=== PATIENT | male | born 1930 | race African-American/Black ===

== ENCOUNTER 2019-08-17 14:43 | Inpatient (IN) | payer OTHER ==
[~2019-08-17] VITALS: Ht 160 cm; Wt 68.7 kg
--- NOTE | ~2019-08-17 | HC ---
[facility] [place] [address] CONSULTATION Name: ROOPA WAY Room #: 236-P [facility] IN M.R.#: [id number] Admission: 08/17/19 Attend Phys: Evans Bruce Discharge: Date of : [birth year] Report #: [id number] THIS REPORT FOR: cc: ISAURO - No family physician/PCP ISAURO - Radha family physician/PCP Mason Jason MD ~ CC: [facility] physician/PCP Evans Cho DATE OF SERVICE: 09/21/2019 HISTORY OF PRESENT ILLNESS: The patient is an 88-year-old -Polish male originally admitted to [facility] on 08/17/2019 with weakness, cough or chills. He was noted to have acute respiratory failure, Community-acquired pneumonia with COVID positive. He had a code blue, necessitating intubation and ventilator placement on 08/22/2019. He remained intubated through 09/16/2019. He was treated for bilateral pneumonia, severe sepsis, urinary tract infection. He was treated with hydroxychloroquine and azithromycin. He also developed multiple of his extremities and wound care has been involved. He was transferred out of ICU to [facility], but ended up being readmitted with recurrent respiratory failure/concern regarding hypotension. He is currently back in the intensive care unit. We are seeing him in rehabilitation medicine consultation. PAST MEDICAL HISTORY: Includes diabetes mellitus type 2. HABITS: No history of tobacco or alcohol abuse. ALLERGIES: No known drug allergies. SOCIAL HISTORY: Was living in a house alone. Apparently utilized a cane. I am uncertain if there are steps, noted to be , with no children or family. He has a jainism community. There is a stepgrandson and a nephew and a friend that are involved. REVIEW OF SYSTEMS: No current complaints of chest pain, shortness of breath or abdominal discomfort. PHYSICAL EXAMINATION: GENERAL: An 88-year-old pleasant -Polish male in no obvious distress. NEUROLOGIC: He is actually quite jovial, will follow basic 1 step commands for me, was not fully oriented x 3, but could follow commands. Facies were symmetric. He had significant bilateral upper extremity weakness, grade it at a 3+/5, in his lower extremities, he has some discomfort with attempted movement, bilateral heel protectors are in place. Once I assisted in bring up his legs, [facility] [address] [place] [address] CONSULTATION Name: ROOPA WAY Room #: 236-P [facility] IN M.R.#: [id number] Admission: 08/17/19 Attend Phys: Evans Bruce Discharge: Date of : [birth year] Report #: [id number] he was able to do some quadriceps, knee extensor movement at least a grade 3+/5. I was unable to adequately assess sensation. He has been max assist for basic bed mobility dependent for rolling. He is currently off the ventilator. He has a suprapubic tube in place, which is noted to be premorbid. ASSESSMENT: An 88-year-old -Polish male with the following problem list: 1. 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 2. Recurrent hypoxic respiratory failure. 3. Prolonged mechanical ventilation with ICU stay. 4. COVID-19 positive. We are in the midst of a COVID-19 pandemic. 5. Bilateral pneumonia. 6. Severe sepsis. 7. Urinary tract infection. 8. Multiple extremity . PLAN: The patient is at a low functional level. I am uncertain if he has the tolerance for an acute 5 North inpatient rehabilitation stay. He also has very limited social support. Note that LTAC has been considered. At this point, we will need to follow along with you and see how his tolerance is for basic therapies. Thank you for asking us to assist in this patient's care. By: [id number] Mason Jason MD /PMT
[2019-08-17 14:46] VITALS: BP 134/72
[2019-08-17 15:23] LABS: HEMATOCRIT 40.4 % (42.0-52.0); HEMOGLOBIN 13.4 gm/dL (14.0-18.0); MCH 29.7 pg (26.0-34.0); MCHC 33.3 g/dL (28.0-37.0); PLATELET COUNT 135 thou/uL (150-400); RBC 4.53 mil/uL (4.50-6.00)
[2019-08-17 15:30] LABS: ANION GAP 5 mmol/L (7-16); BUN 20 mg/dL (7-18); CHLORIDE 97 mmol/L (98-107); CO2 33 mmol/L (21-32); CREATININE 1.1 mg/dL (0.7-1.3); GLUCOSE 262 mg/dL (74-106); POTASSIUM 4.1 mmol/L (3.5-5.1); SODIUM 135 mmol/L (136-145)
[2019-08-17 15:34] LABS: BE(vivo) 3.6 mmol/L (-2 to +3); HCO3 26.8 mmol/L (22.0-26.0); PCO2 35.6 mmHg (35.0-45.0); PO2 54.7 mmHg (80.0-100.0); pH 7.494 (7.360-7.450); sO2 91.1 % (92.0-98.0)
[2019-08-17 15:39] LABS: ALBUMIN 2.9 g/dL (3.4-5.0); SGOT 37 U/L (15-37); SGPT 21 U/L (30-65); TOTAL BILIRUBIN 0.9 mg/dL (<0.1-1.0); TOTAL PROTEIN 7.2 g/dL (6.4-8.2); TROPONIN-I <0.06 ng/mL (<0.06)
[2019-08-17 16:00] LABS: ABSOLUTE NEUTROPHILS 3.9 thou/uL (1.4-8.2)
[2019-08-17 17:02] VITALS: BP 130/66
[2019-08-17 17:11] LABS: URINE BILIRUBIN NEGATIVE (Negative); URINE BLOOD 3+ (Negative); URINE CLARITY SL CLOUDY; URINE COLOR YELLOW; URINE GLUCOSE-RANDOM* TRACE (Negative); URINE KETONES TRACE (Negative); URINE PROTEIN (DIPSTICK) 2+ (Negative); URINE SPECIFIC GRAVITY 1.025 (1.005-1.035)
[2019-08-17 17:13] LABS: URINE LEUKOCYTES-REFLEX 1+ (Negative); URINE NITRITE-REFLEX POSITIVE (Negative)
[2019-08-17 17:17] LABS: BACTERIA-REFLEX >30 Many /HPF (None Seen)
[2019-08-17 17:18] LABS: URINE WBC-REFLEX >25 Many /HPF (0-5)
[2019-08-17 17:19] LABS: AMORPHOUS URATES Moderate /LPF (None Seen); CASTS None Seen /LPF (None Seen); SQUAMOUS None Seen /LPF (0-3); URIC ACID CRYSTALS 0-3 Few /LPF (None Seen); URINE RBC 0-2 Rare /HPF (0-2)
[2019-08-17 17:36] VITALS: BP 130/66
[2019-08-17 17:46] LABS: TSH 0.6 uIU/mL (0.358-3.740)
[2019-08-17 18:00] VITALS: BP 154/89
[2019-08-17] MEDS ORDERED: FINASTERIDE5 MG PO (18:23)
[2019-08-17] MEDS ORDERED: TRADJENTA5 MG (18:23)
[2019-08-17] MEDS ORDERED: LISINOPRIL20 MG PO (18:23)
[2019-08-17] MEDS ORDERED: TAMSULOSIN HCL0.4 MG PO (18:23)
[2019-08-17] MEDS ORDERED: LOVASTATIN 20 M20 MG PO (18:24)
[2019-08-17 20:15] VITALS: BP 141/79
--- NOTE | 2019-08-17 22:04 | NUR ---
ASSUMED CARE FOR THIS PATIENT AT 1900, UPON ASSESSMENT PATIENT WAS C/O CHILLS AND HAD A RESPIRATORY RATE >20. VITAL SIGNS WERE ALL NORMAL. PT'S R SIDE LUNGS HAD RALES. PATIENT WAS ALERT AND ORIENTED X4 BUT WERE SLOW TO RESPOND AND AT TIMES MUFFLED BUT PATIENT WAS ABLE TO CORRECTLY RESPOND TO ALL QUESTIONS REGARDING MENTATION. NO C/O PAIN, BEDSIDE AND ITEMS WITHIN REACH, CALL LIGHT PROVIDED, REEDUCATED ON USE OF BED REMOTE AND HOW TO USE THE CALL LIGHT. PT LEFT ON 3L OF OXYGEN. WILL CONTINUE TO MONITOR.
[2019-08-18] VITALS (7 sets, daily range): BP systolic 115–145; BP diastolic 71–80
--- NOTE | 2019-08-18 13:44 | NUR ---
INITIAL ASSESSMENT: SW reviewed chart and spoke with nursing and attending physician. Pt was admitted from home due to respiratory failure/weakness. Pt did have contact with someone from [place] who has tested positive for COVID-19. Pt is in Enhanced Isolation at this time, awaiting results. SW attempted to call into pt's room. No answer in pt's room. No contact info available on pt's family. SW requested nursing place phone within reach for pt to answer and to obtain info from family if they call, or to obtain contact info for family from pt. SW will follow up and assist as needed with discharge planning.
--- NOTE | 2019-08-18 15:39 | NUR ---
ASSUMED CARE AT 0700. RIGHT AFTER SHIFT CHANGE, RT PUT PT ON ROOM AIR. AT TIME OF AM VITALS, PT'S 02 SAT @87-88%. PT PLACED ON 1L AND ONLY PROGRESSED TO 90%. PT PLACED ON O2 @2L AND O2 SAT INCREASED TO 93%. PT CONTINUED TO NEED 02 FOR THE ENTIRE SHIFT. AROUND 1100, PT WAS TACHYPNEIC IN THE 30'S, BUT ALL OTHER VITALS WERE STABLE. LUNG SOUNDS REASSESSED WITH MINIMAL CHANGE, NO COARSE OR CRACKLES AUSCULTATED. PT STATED THAT HE DID NOT FEEL SHORT OF BREATH OR EXPERIENCING ANY PAIN. MENTATION WAS ASSESSED AND IS WITHIN NORMAL LIMITS. SHORLTY AFTER PT WAS SERVED LUNCH TRAY, PT HAD SLIGHTLY IMPROVED AND WAS NO LONGER TACHYPNEIC. PT APPETITE SEEMS TO BE INCREASING. PT NOTED TO BE EATING HALF OR MORE OF MEALS. ANTIBIOTICS GIVEN AND MAINTENANCE FLUIDS INFUSING PER ORDERS. STILL WAITING FOR COVID-19 RESULTS. WILL CONTINUE MONITOR PT. PT IS SLIGHTLY PROGRESSING TOWARDS PLAN OF CARE GOALS.
[2019-08-18 20:44] LABS: BE(vivo) 3.4 mmol/L (-2 to +3); HCO3 26.7 mmol/L (22.0-26.0); PCO2 35.9 mmHg (35.0-45.0); PO2 53.8 mmHg (80.0-100.0); pH 7.489 (7.360-7.450); sO2 90.5 % (92.0-98.0)
[2019-08-19] VITALS (7 sets, daily range): BP systolic 113–138; BP diastolic 68–83
--- NOTE | 2019-08-19 03:36 | NUR ---
Pt alert and oriented x3. Drowsy but answers to voice. Forgetful at times. Upon assessing pt at 19:21 tachypnea noted 32. Sat 91 % on 2LNC. Lungs noted to have crackles bilaterally greater on pt's right lobes on which he was lying Gradually had to increase to 6 LNC. [facility] was notified. Stat ABGs, Stat Pcxray was done. IV fluids discontinued at 19:21. Results of ABGS and Pcxray called to [facility]. Stat BNP ordered and lasix ordered to be given after BNP back. BNP 938. Lasix 40 given as soon as pharmacy put back in computer. Pt has had 2000 ml light yellow urine out so far. Respirations still tachypneic. Duoneandrew dc'd due to covid-19 recommendations. Manju is aware they were dc'd. Monitoring pt closely. Low grade temps noted earlier this shift, currently pt is afebrile. Abx ordered IV in am and po. Will continue to monitor pt for changes.
[2019-08-19 06:03] LABS: HEMATOCRIT 38.9 % (42.0-52.0); HEMOGLOBIN 12.9 gm/dL (14.0-18.0); MCH 29.5 pg (26.0-34.0); MCHC 33.1 g/dL (28.0-37.0); MCV 89.3 fL (80.0-100.0); RBC 4.36 mil/uL (4.50-6.00); RDW 13.6 % (10.5-14.5); WBC 7.9 thou/uL (4.0-11.0)
[2019-08-19 06:15] LABS: CALCIUM 8.3 mg/dL (8.5-10.1); MAGNESIUM 1.8 mg/dL (1.8-2.4); POTASSIUM 3.3 mmol/L (3.5-5.1)
--- NOTE | 2019-08-19 06:46 | NUR ---
Pt still breathing 36 on 6LNc. Other VSS. He awakens easily to voice. 2800 total this shift from S/P catheter after lasix. Echo ordered to be done today to r/o CHF.Pt repositioned q 2 hrs.
--- NOTE | 2019-08-19 14:29 | NUR ---
ROMAINE reviewed chart and spoke with nursing and attending physician. Pt remains in Enhanced Isolation. Awaiting COVID-19 results at this time. SW attempted x 2 to call into pt's room. No answer. ROMAINE placed call to pt's grandson, Eulalio Vera ([phone]). Voice mailbox is full. ROMAINE will follow up with pt and family at later time. ROMAINE is following to assist as needed with discharge planning.
[2019-08-19 17:13] LABS: HEMATOCRIT 36.6 % (42.0-52.0); HEMOGLOBIN 12.1 gm/dL (14.0-18.0); MCH 29.6 pg (26.0-34.0); MCHC 33.2 g/dL (28.0-37.0); MCV 89.3 fL (80.0-100.0); RBC 4.1 mil/uL (4.50-6.00); RDW 13.7 % (10.5-14.5); WBC 8.2 thou/uL (4.0-11.0)
[2019-08-19 17:20] LABS: ANION GAP 5 mmol/L (7-16); BUN 15 mg/dL (7-18); CALCIUM 8.3 mg/dL (8.5-10.1); CHLORIDE 98 mmol/L (98-107); CO2 32 mmol/L (21-32); CREATININE 1.2 mg/dL (0.7-1.3); GLUCOSE 239 mg/dL (74-106); POTASSIUM 3.5 mmol/L (3.5-5.1); SODIUM 135 mmol/L (136-145)
[2019-08-19 17:30] LABS: TROPONIN-I <0.06 ng/mL (<0.06)
--- NOTE | 2019-08-19 18:12 | NUR ---
Assumed care with romelia Newell RN at approx. 0700 this AM. Pt noted to be on more oxygen than yesterday. Pt up to 5LNC with fine crackles noted in all lung alfonso. Pt much weaker today than yesterday. Pt was able to feed self yesterday with tray set-up. Today, pt required feeding assistance. During today's bed bath, the patient was asked to raise arms on own which was difficult for the pt to do on his own. Dr. Link updated on pts condition this AM while rounding. Permission given to slow rate of IV abx as to not fluid overload the pt too quickly. At 1643, pts heart rate increased to the 120's then shortly after increased to the 150's. Tachycardia ranged from 120's to the 160's with irregular beats and what appeared to be different rhythm changes. 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 During this episode, the patient was asymptomatic. No chest pain/tightness, shortness of breath, dizziness, or feeling of a rapid heart rate; the patient was calm and stated he felt fine. Vital signs were stable. An EKG was obtained, but by the time the EKG was obtained, the irregular beats and tachycardia had stopped. Tachycardia ended at 1655. The EKG showed sinus rhythm; no ST elevation or BBB noted. Dr. Link notified with additional orders added. Pictures of EKG and telemetry strips sent to Dr. Link for review. STAT labs were drawn. Electrolytes and troponin noted to be within normal limits. An additional troponin was ordered for 6 hours later. Pt currently sinus rhythm on the monitor in the 80's to 90's. Pt resting comfortably in bed. Still waiting on COVID-19 results. Family updated on phone today. Will continue to monitor. Pt not yet progressing toward plan of care goals.
--- NOTE | 2019-08-19 21:52 | NUR ---
ASSUMED CARE FOR THIS PT AT 1900, BEGINNING OF THE SHIFT PATIENT WAS STATING THAT BM WAS COMING, THE RN INTEREVENED, THE PT RECEIVED A BEDPAN INSTEAD OF A TRANSFER TO THE COMMODE B/C THE AM RNs STATED THAT PT WAS TOO WEAK TO MOBILIZE AND THIS RNs ASSESSMENT THE PATIENT WAS AT RISK FOR FALL WITH MOBILIZATION. THE CARE PLAN EXPLAINED TO THE PATIENT BUT DOUBTFUL WHETHER PT IS ABLE TO RETAIN THE INFO GIVEN THE CURRENT MENTAL STATUS OF AOX2. PT WAS NOT ABLE TO BM, BUT PT DID HAVE A SEMI/LOOSE STOOL TWO NIGHTS AGO, ORDER OF LAXATIVE IS PERTINENT. WATER/WARM BLANKET PROVIDED. PT DID NOT STATE ANY PAIN. OXYGEN ON 6L SAO2 AT 90S. CONTINUING TO MONITOR OXYGEN CLOSELY FOR PTs NEED. WILL SIGN OFF SOON AND GIVE REPORT TO RECEIVING RN. WILL CONTINUE TO MONITOR UNTIL THEN.
[2019-08-20] VITALS (14 sets, daily range): BP systolic 94–165; BP diastolic 45–124
--- NOTE | 2019-08-20 03:10 | NUR ---
PT TRANSFER TO ICU ROOM 241, FROM 3W S/P COVID-19 POSITIVE. PT ARRIVED TO ICU ABOUT 0152. LETHERIC, DROWSY BUT AROUSES TO VERBAL STIMULI. MONITORS CONNECTED. INITIAL VS SHOWED A FEVER OF 100.4 AXILLARY. TYLANOL 650MG GIVEN. PATIENT DENIES CHEST PAIN, SOB, NAUSEA OR VOMITING. SUPERPUBIC CATHETER INTACT AND SECURED. SR ON THE MONITOR AND TACHYNEIC. O2 SATS WERE IN UPPER 80S , 89, 88 ON NASAL CANULA. PT CURRENT ON HIGH FLOW NASAL CANULA, O2 SATS 95% tO 98%. NO SIGN OF DISTRESS AT THIS TIME. WILL CONTINUE WITH FOLLOW POC.
[2019-08-20 14:40] LABS: HEMATOCRIT 39.3 % (42.0-52.0); MCH 29.7 pg (26.0-34.0); MCHC 33.1 g/dL (28.0-37.0); MCV 89.8 fL (80.0-100.0); RBC 4.37 mil/uL (4.50-6.00); RDW 13.8 % (10.5-14.5); WBC 8.8 thou/uL (4.0-11.0)
[2019-08-20 14:46] LABS: CALCIUM 8.5 mg/dL (8.5-10.1); CREATININE 1.1 mg/dL (0.7-1.3); POTASSIUM 3.3 mmol/L (3.5-5.1)
--- NOTE | 2019-08-20 16:19 | NUR ---
PT IS ALERT AND ORIENTED X3. DROWSY TODAY. MAINTIANS OXYGEN SATUATION 97 PERCENT ON HIGH FLOW NASAL CANULA AT 5 LITERS NASAL CANULA. REMAINS IN ISOLATION FOR CORONAVIRUS POSTIVIE. POSITION IN HIGH FOLWERS POSITION HE FEEDS HIMSELF AND SWALLOWS PILLS WITHOUT DIFFICULTY. NO BOWEL MOVMENT TODAY. ABDOMEN IS FLAT BOWEL SOUNDS ACTIVE. SUPRAPUBIC CATHETER PRESENT. TEMPERATURE OF 100.4 AXILARY AND TYELNOL GIVEN APPEARS HE HAS CHILL AND IS ACHY NOW. NO ISSUES OR CONERNS WILL PROGRESS TOWARDS GOALS.
[2019-08-21] VITALS (10 sets, daily range): BP systolic 89–145; BP diastolic 53–84
--- NOTE | 2019-08-21 05:15 | NUR ---
CARE ASSUMED AT 1900. PT ALERT AND ORIENTED X 3. DROWSY, BUT RESPONDS TO BOTH VERBAL AND TACTILE STIMULI. PT VS HAVE BEEN STABLE BUT HIS RESPIRATIONS. SUSTAINING RESPIRATIONS >30 AND SHALLOW. O2 HIGH FLOW NC AT 5L, SATS > 90. PT DENIES ANY FORM OF DISTRESS. PT IS ALSO HAVING A FEVER, 100.8 THIS MORNING. TYLENOL 650 MG GIVEN. PT DENIES PAIN, CHEST PAIN, NAUSEA OR VOMITING. WILL CONTINUE TO MONITOR PT VS AND FOLLOW POC.
[2019-08-21 08:13] LABS: ABSOLUTE NEUTROPHILS 7.9 thou/uL (1.4-8.2); BASOPHILS 0.5 % (0.0-2.0); EOSINOPHILS 1.2 % (0.0-3.0); HEMATOCRIT 38.3 % (42.0-52.0); HEMOGLOBIN 12.6 gm/dL (14.0-18.0); LYMPHOCYTES 4.5 % (24.0-44.0); MCH 29.5 pg (26.0-34.0); MCHC 32.8 g/dL (28.0-37.0); MONOCYTES 7.7 % (1.0-8.0); PLATELET COUNT 191 thou/uL (150-400); POLYS 86.1 % (36.0-66.0); RBC 4.26 mil/uL (4.50-6.00); RDW 13.6 % (10.5-14.5); WBC 9.2 thou/uL (4.0-11.0)
[2019-08-21 08:24] LABS: CALCIUM 8.1 mg/dL (8.5-10.1)
--- NOTE | 2019-08-21 11:03 | NUR ---
PT ASSESSED, VSS OTHER THAN RESPIRATIONS IN THE 30S, BP INITIALLY SAID 89 SYSTOLIC, BUT CUFF WAS REPOSITIONED AND IT WAS 122/68. PT AOX3, DROWSY BUT SAID HE FEELS SO MUCH BETTER TODAY THAN YESTERDAY, HAD A WATERY BM USING THE BEDPAN, DIDN'T WANT HIS EGGS OR KAZAKH MUFFIN BUT ATE ALL OF HIS HASH BROWNS AND APPLE SAUCE. PT REPOSITIONED, RESTING IN BED, SPOKE WITH DR EUGENE, UNDERSTANDS POC, CALL LIGHT IN RIGHT HAND. WILL MONITOR.
--- NOTE | 2019-08-21 11:11 | NUR ---
discussed during los, possible will be ready to dc on saturday08/24/2019, home no needs. will cont following as needed for dc need. pt currently on high flow o2 and no home o2 noted.
[2019-08-21 13:27] LABS: BE(vivo) 4.6 mmol/L (-2 to +3); HCO3 28.2 mmol/L (22.0-26.0); PCO2 38.1 mmHg (35.0-45.0); pH 7.487 (7.360-7.450); sO2 85.6 % (92.0-98.0)
[2019-08-21 13:29] LABS: PO2 46.2 mmHg (80.0-100.0)
--- NOTE | 2019-08-21 14:36 | NUR ---
PT'S O2 SATS STAYED IN THE HIGH 80S FOR 10 MIN. NEW O2 SAT PROBE APPLIED, O2 INCREASED TO 8L VIA NC, RESPIRATIONS REMAINED IN THE HIGH 30S-LOW 40S, SOMETIMES 45. CALLED DR HAWTHORNE, HE'S AWARE AND OFFERED TO PUT PT ON VENT IF HE PREFERED. I ASKED PT, "ARE YOU HAVING A DIFFICULT TIME BREATHING?" PT RESPONDED, "NOT AT ALL." WILL CONTINUE TO MONITOR PT.
--- NOTE | 2019-08-21 17:05 | HC ---
[facility] [place] [address] CONSULTATION Name: ELKIN WAY Room #: 241-P [facility] IN M.R.#: [id number] Admission: 08/17/19 Attend Phys: Evans Bruce Discharge: Date of : [birth year] Report #: [id number] THIS REPORT FOR: cc: ISAURO - Radha family physician/PCP ISAURO - Radha family physician/PCP Elkin Roberto MD ~ CC: [facility] physician/PCP Evans Cho DATE OF SERVICE: 08/20/2019 INFECTIOUS DISEASE CONSULTATION REASON FOR CONSULTATION: I was asked to evaluate concerning COVID-19 and respiratory failure with bilateral pulmonary infiltrates. HISTORY OF PRESENT ILLNESS: This is an 88-year-old admitted from home with 2-day history of increasing shortness of breath, cough and anterior chest discomfort. He was exposed to a COVID positive individual who had traveled from [place] several days prior to his onset. He has underlying diabetes and hypertension without any previous pulmonary disease noted. He was admitted with evidence of pneumonia symptomatically and confirmed on chest x-ray. Coronavirus testing proved positive. Over the last 3 days, he has had progressive shortness of breath, oxygen requirements up to 5 liters. Minimal sputum production. Treated initially with azithromycin and ceftriaxone. Today added hydroxychloroquine. He has remained alert, although has some confusion. No hemoptysis. No pleuritic chest pain. He has had episodes of tachycardia, but no atrial fibrillation. No evidence of cardiac ischemia identified. He is now down in the intensive care unit for further monitoring and care. He has had loose stools. No nausea or vomiting. Appetite has been fair. Has good urine output now with indwelling Akbar catheter. He has peripheral IV in place. There have been no rashes or decubiti. He has had no other neurologic issues or seizure. REVIEW OF SYSTEMS: A 14-point review of system was negative other than what has been described above. ALLERGIES: None known. MEDICATIONS: As noted on his MAR including Tradjenta, Zestril, tamsulosin, finasteride, lovastatin prior to his admission, now on azithromycin, ceftriaxone, and hydroxychloroquine. PAST MEDICAL HISTORY: Diabetes, prostatic hypertrophy, hypertension, and hyperlipidemia. [facility] [address] [place] [address] CONSULTATION Name: ELKIN WAY Room #: 241-P [facility] IN [facility].#: [id number] Admission: 08/17/19 Attend Phys: Evans Bruce Discharge: Date of : [birth year] Report #: [id number] FAMILY HISTORY: No known tuberculosis. SOCIAL HISTORY: Nonsmoker, no significant alcohol intake. PHYSICAL EXAMINATION: VITAL SIGNS: The patient was in airborne droplet in contact precautions. Due to the COVID pandemic and shortage of supply, PPE examination was gleaned from previous evaluation of Dr. Link earlier today in collaboration with nursing and attendants. Afebrile and hemodynamically stable, temperature earlier today was 100.4 degrees. GENERAL: He was alert and cooperative. He is on oxygen at 5 liters per nasal cannula. SKIN: Without rash or decubitus. He had no palpable adenopathy. HEENT: Eyes were without conjunctivitis or scleral icterus. NECK: Supple. Mouth is without mucositis. LUNGS: Decreased breath sounds bilaterally. There was no consolidation. No chest wall tenderness. HEART: Regular without appreciable murmur, gallop or rub. ABDOMEN: Soft and nontender with no hepatosplenomegaly or mass. GENITOURINARY: External genitalia with indwelling Akbar catheter. EXTREMITIES: Without clubbing, cyanosis or edema. He is alert and cooperative. Strength in the upper and lower extremities was within normal limits and symmetric. LABORATORY STUDIES: Reviewed. MICROBIOLOGY: Reviewed. Chest x-ray was reviewed and compared to the previous studies showing bilateral interstitial infiltrates with more predominant right middle and left lower lobe infiltrates. His creatinine is 1.1 with normal liver function tests. Hemoglobin is 13, WBC 8.8 with 73% segs, 5% bands, and 11% lymphs. His QTc interval was 416 with normal sinus rhythm, T-wave changes with anterior Q-waves present. Troponin is negative. BNP is 938. Urinalysis positive for wbc's and bacteria with urine culture showing Klebsiella sensitive to third generation cephalosporins. Influenza antigen is negative. COVID testing is positive. IMPRESSION: 1. An 88-year-old with underlying diabetes, hypertension, presents with COVID-19 infection and bilateral pulmonary infiltrates with respiratory compromise and sepsis with tachycardia, hypoxia, mild confusion and low-grade fever. 2. Underlying diabetes. 3. Klebsiella urinary tract infection. [address] [address] CONSULTATION Name: ELKIN WAY Room #: 241-P [facility] IN ..#: [id number] Admission: 08/17/19 Attend Phys: Evans Bruce Discharge: Date of : [birth year] Report #: [id number] RECOMMENDATIONS: We will continue full ICU support. Monitor for further cardiac issues and congestive heart failure. Agree with current antibiotic program. We will also check procalcitonin, CRP, serial CBC, BMP, BNP and chest x-ray. Monitor his oxygen saturation closely. Pulmonary Medicine and Critical Care Medicine have been consulted. <ELECTRONICALLY SIGNED> By: Elkin Roberto MD 08/21/19 1705 [id number] Elkin Roberto MD /nt
--- NOTE | 2019-08-21 18:36 | NUR ---
pt's temp was 100.5 axillary around 1730, Dr Roberto aware and said to give tylenol if pt was uncomfortable. med given, will monitor.
[2019-08-22] VITALS (43 sets, daily range): BP systolic 60–158; BP diastolic 35–105
[2019-08-22 00:07] LABS: GLYCOHEMOGLOBIN (HGB A1C) 8.8 % (4.8-5.6)
[2019-08-22 05:07] LABS: BE(vivo) 4.8 mmol/L (-2 to +3); HCO3 28.2 mmol/L (22.0-26.0); PCO2 37.5 mmHg (35.0-45.0); pH 7.494 (7.360-7.450); sO2 98.7 % (92.0-98.0)
--- NOTE | 2019-08-22 06:30 | NUR ---
ASSUMED CARE OF PT AT 1900. PT INITIALLY ON 8L O2 PER [facility]. DR. HAYWARD TALKED WITH PT AROUND 2300 ABOUT POSSIBLE INTUBATION, PT REFUSED AND SAID HE WAS FEELING FINE. PT DENIED SHORTNESS OF BREATH. AT 0400, PT WAS IN DISTRESS. O2 HAD TO BE INCREASED, YET O2 SATURATION STAYED AT 92% AND UNDER. TALKED WITH PT ABOUT INTUBATION AGAIN AND HOW THAT WOULD BE THE NEXT STEP. PT AGREED TO INTUBATION. ER PHYSICIAN, DR. MILLS, INTUBATED PT AT 0450. MEDICATIONS WERE GIVEN CHARTED IN EMAR. PT STARTED ON PROPOFOL GTT FOR VENT MANAGMENT. AFTER INTUBATION, IT WAS DIFFICULT TO APPROPRIATELY SEDATE THE PT. ONCE APPROPRIATELY SEDATED, PT BECAME HYPOTENSIVE. 1L NS BOLUS GIVEN AND PT STARTED ON LEVO GTT. PT ALSO STARTED ON FENTANYL GTT FOR VENT MANAGMENT. PT IN NOT PROGRESSING, WILL CONTINUE TO FOLLOW THE PLAN OF CARE. WILL CONTINUE TO MONITOR.
[2019-08-22 08:17] LABS: ABSOLUTE NEUTROPHILS 8.5 thou/uL (1.4-8.2); BASOPHILS 0.5 % (0.0-2.0); EOSINOPHILS 1.1 % (0.0-3.0); HEMATOCRIT 31.8 % (42.0-52.0); LYMPHOCYTES 4.2 % (24.0-44.0); MCH 29.3 pg (26.0-34.0); MCHC 32.9 g/dL (28.0-37.0); MONOCYTES 7.8 % (1.0-8.0); POLYS 86.4 % (36.0-66.0); RBC 3.57 mil/uL (4.50-6.00); RDW 13.6 % (10.5-14.5); WBC 9.9 thou/uL (4.0-11.0)
[2019-08-22 08:23] LABS: HEMOGLOBIN 10.4 gm/dL (14.0-18.0)
[2019-08-22 08:58] LABS: ALBUMIN 1.6 g/dL (3.4-5.0); CALCIUM 8.1 mg/dL (8.5-10.1); CREATININE 0.8 mg/dL (0.7-1.3); POTASSIUM 3.9 mmol/L (3.5-5.1); TOTAL BILIRUBIN 0.6 mg/dL (<0.1-1.0); TOTAL PROTEIN 5.5 g/dL (6.4-8.2)
[2019-08-22 10:31] LABS: PLATELET COUNT 225 thou/uL (150-400)
--- NOTE | 2019-08-22 12:58 | HC ---
[facility] [place] [address] CONSULTATION Name: ROOPA WAY Room #: 241-P [facility] IN M.R.#: [id number] Admission: 08/17/19 Attend Phys: Evans Bruce Discharge: Date of : [birth year] Report #: [id number] THIS REPORT FOR: cc: ISAURO - Radha family physician/PCP ISAURO Garcia family physician/PCP Katie Pruett MD ~ CC: [facility] physician/PCP Evans Cho DATE OF SERVICE: 08/21/2019 ENDOCRINE CONSULTATION CONSULTING PHYSICIAN: Dr. Link. REASON FOR CONSULTATION: Type 2 diabetes mellitus, uncontrolled hyperglycemia. HISTORY OF PRESENT ILLNESS: This is an 88-year-old male patient whose medical background is significant for type 2 diabetes mellitus as well as hypertension, BPH, and hyperlipidemia. The patient presented to the ER on the day of admission with progressive shortness of breath, cough, chest discomfort as well as generalized lethargy. He explained that he had been in touch with COVID positive patient and then later on proved to be COVID positive himself. The patient was admitted to the ICU for further management of pneumonia, respiratory failure, and generalized weakness. The patient notes that he has been a diabetic for at least 5 years and he has been on Tradjenta monotherapy 5 mg daily. The patient was rather lethargic during our interview and was not able to provide much detail on his glycemic pattern, but indicated that it was mostly good. He is not aware of issues pertaining to diabetic retinopathy, nephropathy or neuropathy. REVIEW OF SYSTEMS: CONSTITUTIONAL: Fatigue, tiredness, fever, chills, poor appetite. HEENT: Negative for sinus pain, ear drainage. He has a sore throat. PULMONARY: Shortness of breath and cough, mostly dry. No hemoptysis. CARDIAC: Dyspnea on exertion, shortness of breath, chest discomfort. GASTROINTESTINAL: Negative for abdominal pain, nausea, vomiting or changes in bowel movement frequency. NEUROLOGY: Negative for loss of consciousness, seizure activity or severe frequent headaches. PSYCHIATRIC: Negative for delusions, hallucinations. UROLOGY: Noted for baseline BPH. Negative for dysuria or hematuria. Otherwise, review of systems noncontributory other than those mentioned in the [facility] [address] [place] [address] CONSULTATION Name: ROOPA WAY Room #: 241-P [facility] IN [facility].#: [id number] Admission: 08/17/19 Attend Phys: Evans Bruce Discharge: Date of : [birth year] Report #: [id number] HPI. PAST MEDICAL HISTORY: 1. Type 2 diabetes mellitus. 2. Hypertension. 3. Hyperlipidemia. 4. BPH. OUTPATIENT MEDICATIONS: Include linagliptin 5 mg daily, lisinopril 20 mg daily, Flomax 0.4 mg b.i.d., finasteride 5 mg daily, and Mevacor 20 mg daily. ALLERGIES: No known drug allergies. FAMILY HISTORY: Noncontributory. 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 He denies use of tobacco, alcohol or illicit drugs. PHYSICAL EXAMINATION: GENERAL: -English male patient who appears lethargic, but is able to interact. VITAL SIGNS: Blood pressure is 137/75 mmHg, heart rate 91 beats per minute, respirations 37 per minute, and temperature 37.5 degrees Celsius. CONSTITUTIONAL: An elderly -English male patient lying in bed, seems lethargic, but arousable, not in pain. HEENT: Anicteric sclerae. Intact extraocular motions. NECK: Supple, no JVD, no thyromegaly. CHEST: Noted for moderate entry bilaterally with scattered rales and rhonchi. HEART: Regular rate and rhythm without murmurs or gallops. ABDOMEN: Soft, lax. No guarding. Active bowel sounds. EXTREMITIES: Lower extremity exam negative for ankle edema, skin breaks, ulcerations. Pedal pulses are appreciated. NEUROLOGIC: Lethargic, somewhat somnolent, but arousable, oriented to time, place and person. The rest of his examination is largely nonfocal. PSYCHIATRY: Flat mood and affect. Able to interact appropriately. Normal thought process. LABORATORY DATA: On arrival to the ER, his blood glucose 268 and has since ranged roughly between 190 and 250 mg/dL. Otherwise, sodium 135, potassium 4.0, chloride 99, CO2 of 31, anion gap 5, BUN 11, creatinine 1.0, glucose 262, AST 37, total bilirubin 0.9, calcium 8.1, magnesium 2.0, alkaline phosphatase 55, ALT 21, total protein 7.2, albumin 2.9. EGFR 86. Lactic acid 1.6. CRP 172.1. White blood count 9.2, hemoglobin 12.6, hematocrit 38.3, and platelets 191. TSH is 0.60. He is positive for COVID-19. ASSESSMENT AND PLAN: [facility] [address] [place] [address] CONSULTATION Name: ROOPA WAY Room #: [facility] IN M.R.#: [id number] Admission: 08/17/19 Attend Phys: Evans Bruce Discharge: Date of : [birth year] Report #: [id number] 1. Type 2 diabetes mellitus. The patient has had type 2 diabetes mellitus for several years and is reportedly well controlled on Tradjenta monotherapy. I will request a hemoglobin A1c to further assess this overall outlook. Currently, the patient has been mostly hyperglycemic in the setting of a critical illness. It would be prudent to help the patient maintain within target glucose values to expedite his recovery. In doing so, I will maintain on Tradjenta therapy and maintain low intensity Humalog supplemental scale, and introduce Lantus insulin 12 units daily as we maintain blood glucose monitoring a.c. and at bedtime to adjust his regimen accordingly. 2. Respiratory failure. The patient is requiring oxygen therapy while his respiratory issues including pneumonia and COVID positivity ____. 3. Malnutrition. The patient has a diminished appetite and minimal p.o. intake, if this outlook continues, he might need to be considered for nutritional support via tube feeds or TPN if necessary. 4. Pneumonia. The patient tested positive for COVID-19 and is currently receiving a combination of Zithromax, Rocephin, Plaquenil, and zinc sulfate. Infectious Disease service is following. I have reviewed the patient's clinical care notes, laboratory data, and other pertinent clinical information as well as discussed his state with nursing staff for over 35 minutes. I certainly appreciate this consultation by Dr. Link. <ELECTRONICALLY SIGNED> By: Katie Pruett MD 08/22/19 1258 [id number] 1320 Katie Pruett MD /nt
--- NOTE | 2019-08-22 16:59 | NUR ---
ASSESSMENTS AND INTERVENTIONS DOCCUMENTED. PATIENT REMAINS INTUBATED WITH MODERATE SEDATION. PATIENT TITRATED OFF LEVOPHED GTT. PATIENT IS STABLE. TUBE FEEDING ORDERS GIVEN, WAITING ON RECCOMENDATIONS FROM DIETARY. FAMILY CALLING ABOUT PATIENT. FAMILY EDUCATED THAT THEY WILL NOT BE ABLE TO BE GIVEN INFORMATION BASED ON THE FACT THAT THEY ARE NOT ON HIS LIST. ORTHODOX ADMIN UPDATED ABOUT CURRENT STATUS. PATIENT SLOWLY PROGRESSING TOWARDS GOALS EVIDENCE BY BEING TITRATED OFF LEVOPHED GTT.
[2019-08-23] VITALS (88 sets, daily range): BP systolic 71–142; BP diastolic 40–98
--- NOTE | 2019-08-23 01:55 | NUR ---
0015- PT BLOOD GLUCOSE 44. 10% DEXTROSE 100ML GIVEN. RECHECK BLOOD GLUCOSE IS 85. 0200- PT SUPRAPUBIC CATHETER DRESSING CHANGED WITH BATH. FOUL DRAINAGE AROUND THE SUPRAPUBIC CATHETER SITE.
[2019-08-23 04:48] LABS: BE(vivo) 3.4 mmol/L (-2 to +3); PCO2 42.8 mmHg (35.0-45.0); PO2 74.4 mmHg (80.0-100.0); pH 7.434 (7.360-7.450); sO2 95.3 % (92.0-98.0)
--- NOTE | 2019-08-23 06:29 | NUR ---
CHART CHECK. PT SLOWLY PROGRESSING TOWARDS GOALS. LEVOPHED RESTARTED SINCE 1800 08/21 YESTERDAY AND TITRATING IT. TOLERATING TUBE FEED. PLAN FOR PICC LINE PLACEMENT.
[2019-08-23 07:09] LABS: BASOPHILS 0.3 % (0.0-2.0); EOSINOPHILS 1.7 % (0.0-3.0); HEMOGLOBIN 10.8 gm/dL (14.0-18.0); LYMPHOCYTES 5.2 % (24.0-44.0); MCH 29.4 pg (26.0-34.0); MCHC 32.8 g/dL (28.0-37.0); MCV 89.5 fL (80.0-100.0); MONOCYTES 9.4 % (1.0-8.0); PLATELET COUNT 227 thou/uL (150-400); POLYS 83.4 % (36.0-66.0); RBC 3.69 mil/uL (4.50-6.00); RDW 13.8 % (10.5-14.5); WBC 9.6 thou/uL (4.0-11.0)
[2019-08-23 07:21] LABS: ALBUMIN 1.6 g/dL (3.4-5.0); CALCIUM 8.2 mg/dL (8.5-10.1); CREATININE 0.9 mg/dL (0.7-1.3); POTASSIUM 4.1 mmol/L (3.5-5.1); TOTAL BILIRUBIN 0.3 mg/dL (<0.1-1.0); TOTAL PROTEIN 5.6 g/dL (6.4-8.2)
--- NOTE | 2019-08-23 11:55 | NUR ---
VASCULAR ACCESS NOTE ORDER FOR PICC VERIFIED. CONSENT OBTAINED PER MD. Landry BRACHIAL VEIN IS WIDELY PATENT ON U.S ASSESSMENT. PATIENT PREPPED AND DRAPED UNDER STERILE CONDITIONS. LIDOCAINE 2ML OF 1% GIVEN SUBCUTANEOUS INJECTION. VEIN CANNULATED WITH ONE ATTEMPT. GUIDEWIRE ADVANCED EASILY. VESSEL DILATED. GUIDEWIRE REMOVED INTACT. 5FR TL PICC TRIMMED TO 43CM. LINE ADVANCED EASILY TO 42CM INTERNAL AND 1CM EXTERNAL. ALL PORTS FLUSH AND DRAW EASILY. CXR VERIFICATION FOR LINE PLACEMENT. LINE TERMINATES IN THE SVC. LINE RELEASED FOR IMMEDIATE USE TO RN.
[2019-08-24] VITALS (29 sets, daily range): BP systolic 84–133; BP diastolic 50–78
[2019-08-24 05:25] LABS: BE(vivo) 2.7 mmol/L (-2 to +3); HCO3 27.8 mmol/L (22.0-26.0); PO2 86.3 mmHg (80.0-100.0); pH 7.408 (7.360-7.450); sO2 96.6 % (92.0-98.0)
[2019-08-24 06:13] LABS: ABSOLUTE NEUTROPHILS 6.5 thou/uL (1.4-8.2); BASOPHILS 0.4 % (0.0-2.0); EOSINOPHILS 1.4 % (0.0-3.0); HEMATOCRIT 30.9 % (42.0-52.0); HEMOGLOBIN 10.3 gm/dL (14.0-18.0); LYMPHOCYTES 5.6 % (24.0-44.0); MCH 29.8 pg (26.0-34.0); MCHC 33.4 g/dL (28.0-37.0); MCV 89.4 fL (80.0-100.0); MONOCYTES 9.5 % (1.0-8.0); PLATELET COUNT 210 thou/uL (150-400); POLYS 83.1 % (36.0-66.0); RBC 3.46 mil/uL (4.50-6.00); RDW 13.6 % (10.5-14.5); WBC 7.8 thou/uL (4.0-11.0)
[2019-08-24 06:43] LABS: ALBUMIN 1.4 g/dL (3.4-5.0); CALCIUM 7.9 mg/dL (8.5-10.1); POTASSIUM 4.6 mmol/L (3.5-5.1); TOTAL BILIRUBIN 0.3 mg/dL (<0.1-1.0); TOTAL PROTEIN 5.7 g/dL (6.4-8.2)
--- NOTE | 2019-08-24 11:44 | NUR ---
change in condition over the weekend. noted per chart intubated on 08/22/2019, tube feeds for nutrition and has a suprapubic catheter. will cont folowing as needed for dc needs.
--- NOTE | 2019-08-24 18:11 | NUR ---
ASSESSMENTS AND INTERVENTIONS DOCCUMENTED. PATIENT REMAINS INTUBATED AND SEDATED THROUGH OUT SHIFT. NO MAJOR CHANGES. PATIENT IS NOT PROGRESSING TOWARDS GOALS AT THIS TIME. PATIENT NOT FOLLOWING COMMANDS, AND REMAINS ON THE SAME AMMOUNT OF FIO2
[2019-08-25] VITALS (39 sets, daily range): BP systolic 90–148; BP diastolic 51–82
--- NOTE | 2019-08-25 07:49 | NUR ---
Patient remains sedated does not follows command. Reflexes are intact. Vital signs WNL. No signs of distress or discomfort. Vent setting remain the same. Patient is stable but no progressing toward goals.
[2019-08-25 09:09] LABS: HEMATOCRIT 29.8 % (42.0-52.0); HEMOGLOBIN 9.8 gm/dL (14.0-18.0); MCH 29.7 pg (26.0-34.0); MCHC 32.9 g/dL (28.0-37.0); MCV 90.2 fL (80.0-100.0); RBC 3.3 mil/uL (4.50-6.00); WBC 9.1 thou/uL (4.0-11.0)
[2019-08-25 09:14] LABS: POTASSIUM 4.5 mmol/L (3.5-5.1)
--- NOTE | 2019-08-25 14:34 | NUR ---
PT INTUBATED. ASSESSMENTS DOCUMENTED. I STOPPED THE PROPOFOL GTT FOR A SEDATION VACATION BUT THE PT WAS SLOW TO WAKE. HE DID OPEN EYES TO VERBAL STIMULI ABOUT 1000. I CHOSE TO LEAVE THE PROPOFOL OFF AND CONTINUE CARE WITH THE FENTYNL. VENT SETTING UNCHANGED, POSSIBLE WEANING TRIAL TOMORROW. TUBE FEED AT GOAL. ADEQUATE URINE OUTPUT. AUTHORIZED CONTACT LIST UPDATED. PT AND CONTACTS UPDATED AND EDUCATED. WILL CONTINUE TO MONITOR.
[2019-08-26] VITALS (48 sets, daily range): BP systolic 109–146; BP diastolic 62–82
[2019-08-26 06:06] LABS: CALCIUM 7.7 mg/dL (8.5-10.1); CREATININE 0.8 mg/dL (0.7-1.3); POTASSIUM 4.3 mmol/L (3.5-5.1)
--- NOTE | 2019-08-26 07:38 | NUR ---
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 LEVOFED TAKEN OFF AT 0500, MAP REMAINED ABOVE 60. PATIENT TOLERATING TUBE FEEDING. BLOOD SUGAR CLOSELY MONITORED. PATIENT ABLE TO INTERMITTENTLY FOLLOW COMMANDS, WEAK COMPENSATION ASSOCIATE. PLAN DISCUSSED WITH PATIENT. NO SIGN OF ACUTE DISTRESS NOTED AT THIS TIME. WILL CONTINUE TO MONITOR.
--- NOTE | 2019-08-26 15:24 | NUR ---
ASSUMED CARE OF PT AT 0700. PT INTUBATED, LIGHTLY SEDATED. ABLE TO NOD AND FOLLOW SIMPLE COMANDS. LEVOPHED OFF, VITALS STABLE. TEMP 99F. RR 20-25. TOLERATING TUBE FEED WELL. RESWABBED FOR COVID, SUBMITTED TO LAB. NO OTHER REMARKABLE CHANGES TO REPORT.
[2019-08-27] VITALS (25 sets, daily range): BP systolic 80–134; BP diastolic 51–77
--- NOTE | 2019-08-27 01:33 | NUR ---
patient is sedated and on vent. patient has tube feed. patinet FENTON and follows commands. wcm.
[2019-08-27 06:47] LABS: CALCIUM 7.8 mg/dL (8.5-10.1); CREATININE 0.8 mg/dL (0.7-1.3); POTASSIUM 4.3 mmol/L (3.5-5.1)
--- NOTE | 2019-08-27 13:57 | NUR ---
PT AWAKE AND ALERT, FOLLOWING COMMANDS. ANXIOUS AND UNCOMFORTABLE ON VENT. TACHYPENIC. ORDERS FROM DR. DAVIS TO START PATIENT ON PROPOFOL TO MAINTAIN COMOFORT WHILE ON VENT. PATIENT FAILED CPAP TRIAL THIS AFTERNOON DUE TO TACHYPENIA. MONITORING BLOOD PRESSURES Q15 MIN AFTER INITIATION OF PROPOFOL.
[2019-08-28] VITALS (33 sets, daily range): BP systolic 81–159; BP diastolic 47–89
[2019-08-28 05:39] LABS: CALCIUM 7.6 mg/dL (8.5-10.1); CREATININE 0.9 mg/dL (0.7-1.3)
--- NOTE | 2019-08-28 07:16 | NUR ---
ASSUMED CARE OF PATIENT AT 1900. ASSESSMENTS COMPLETED. PT IS SEDATED ON VENT AND TOLERATING WELL. NO CHANGE IN SETTINGS. VS STABLE, PATIENT CONTINUES OFF PRESSORS. TOLERATING TUBE FEEDINGS. PATIENT TO CONTINUE WITH POC.
--- NOTE | 2019-08-28 08:54 | NUR ---
chart review. + covid 19. cm consult. pt remains on vent, follows commands. TF for nutritional support. failed cpap trail yesterday 08/27/2019, cont weaning trails. cm left message for bedside nurse to check on cm consult?, will cont following as needed for dc needs.
--- NOTE | 2019-08-28 12:15 | EKG ---
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
--- NOTE | 2019-08-28 12:18 | EKG ---
[facility] [place] [address] ELECTROCARDIOGRAM REPORT Name: ROOPA WAY Room #: 241-P ADM IN M.R.#: [id number] Admission: 08/17/19 Attend Phys: Evans Bruce Discharge: Date of : [birth year] Report #: [id number] THIS REPORT FOR: cc: ISAURO - No family physician/PCP ISAURO - No family physician/PCP Pablito Smith MD [facility] THIS REPORT FOR: //name// [facility] Test Date: 2019-08-19 Test Time: 17:09:23 Pat Name: ROOPA WAY Department: Room: [facility] Gender: M Roster Clerk: Rod BARAKAT : 1930 Requested By: Torey Link Order Number: [id number] MD: Pablito Smith Measurements Intervals [place] Rate: 78 P: 18 SD: 134 QRS: -30 QRSD: 78 T: 19 QT: 365 QTc: 416 Interpretive Statements Sinus rhythm Leftward axis Poor R wave progression Nonspecific T wave abnormality Compared to ECG 08/17/2019 14:59:35 Nonspecific change in the ST and T wave segments Anterior Q waves are less prominent Electronically Signed On 08-20-2019 8:55:24 CDT by Pablito Smith [email or web address] <ELECTRONICALLY SIGNED> By: Pablito Smith MD, FAC 08/20/19 0855 1709 1709 Pablito Smith MD, FAC /EPI
--- NOTE | 2019-08-28 12:22 | EKG ---
[facility] [place] [address] ELECTROCARDIOGRAM REPORT Name: SEAMUSELKIN Room #: 241-P ADM IN M.R.#: [id number] Admission: 08/17/19 Attend Phys: Evans Bruce Discharge: Date of : [birth year] Report #: [id number] THIS REPORT FOR: cc: ISAURO - Radha family physician/PCP ISAURO - Radha family physician/PCP Pablito Smith MD [facility] THIS REPORT FOR: //name// [facility] Test Date: 2019-08-22 Test Time: 07:48:51 Pat Name: ELKIN WAY Department: Room: 241 Gender: M Wash Helper: Gris MONGE : 1930 Requested By: Elkin Roberto Order Number: [id number] MD: Pablito Smith Measurements Intervals [place] Rate: 60 P: 8 NE: 145 QRS: -29 QRSD: 87 T: 11 QT: 426 QTc: 426 Interpretive Statements Sinus rhythm Atrial premature complex Borderline left axis deviation Compared to ECG 08/19/2019 17:09:23 Atrial premature complex(es) now present T-wave abnormality no longer present Electronically Signed On 08-24-2019 9:13:51 CDT by Pablito Smith [email or web address] <ELECTRONICALLY SIGNED> By: Pablito Smith MD, [facility] 08/24/1913 Pablito Smith MD, [facility] /EPI
--- NOTE | 2019-08-28 18:00 | NUR ---
remains on vent with versed and fentanyl gtt for sedation. resp rate in upper 20's, weakly follows commands. family called to inquire regarding pt status, updated.
--- NOTE | 2019-08-28 21:16 | NUR ---
2100: PT GUPPY BREATHING. SEDATION KENT PT ON 2MG VERSED AND 100 FENTANYL. PT STARTED DESAT TO LOW 80'S. RESPIRATORY RATE HIGH. 2099: TELEVISION SERVICER IN PT ROOM. PT STARTED ON PROPOFOL. UP ON SEDATION. PT SUCTIONED AND FIO2 INCREASED. 2114: DR. DAVIS NOTIFIED ABOUT RESTARTING PT ON PROPOFOL AND PT UP ON SEDATION. PT LOOKS COMFORTABLE. NO VENT SETTINGS ORDER AT THIS TIME. PT SPO2 ABOVE 95. CONTINUE TO MONITOR AT THIS TIME.
[2019-08-29] VITALS (83 sets, daily range): BP systolic 82–136; BP diastolic 47–76
--- NOTE | 2019-08-29 00:45 | NUR ---
08/27 2310: PT BLOOD GLUCOSE 66. DEXTROSE 10% 100ML GIVEN. 08/28 003: RECHECK BG STICK IS 165. 08/28 99: PT VITAL HP TUBE FEED NOT AVAILABLE IN THE HOSPITAL. JOSE CALLED AND INFORMED ABOUT PT BLOOD GLUCOSE LOW AND TUBE FEED NOT AVAILABLE FOR NIGHT. ORDER FOR DEXTROSE 5% AT 75ML/HR WAS GIVEN AND ALUMNI COORDINATOR TO BE CONSULTED IN THE AM.
[2019-08-29 05:59] LABS: CALCIUM 7.7 mg/dL (8.5-10.1); CREATININE 0.8 mg/dL (0.7-1.3); POTASSIUM 4.6 mmol/L (3.5-5.1)
--- NOTE | 2019-08-29 07:39 | NUR ---
CHART CHECK. REPORT GIVEN TO ONCOMING RN. PT PROGRESSING TOWARDS GOAL. CONTINUE TO MONITOR.
--- NOTE | 2019-08-29 15:27 | NUR ---
PT REMAINS ON THE VENT. LUNGS ARE CLEAR TO DIMINISHED. SUPRAPUBIC CATHETER YELLOW URINE PRESENT. REMAINS ON SEDATION. RESTRAINTS IN PLACE WRIST BILATERAL AT THIS TIME. LUNGS ARE CLEAR TO DIMINISHED. MAINTAINS SATURATIONS AT 100 PERCENT ON THE VENT. SCDS BILAERAL. NO ISSUES OR CONERNS NOTED. WILL CONTINUE TO PROGRESS TOWARDS GOALS PER NURSING AT THIS TIME.
[2019-08-30] VITALS (26 sets, daily range): BP systolic 93–122; BP diastolic 53–73
[2019-08-30 05:59] LABS: HEMATOCRIT 28.6 % (42.0-52.0); HEMOGLOBIN 9.5 gm/dL (14.0-18.0); MCH 29.6 pg (26.0-34.0); MCHC 33.1 g/dL (28.0-37.0); MCV 89.4 fL (80.0-100.0); PLATELET COUNT 191 thou/uL (150-400); RDW 13.3 % (10.5-14.5); WBC 7.6 thou/uL (4.0-11.0)
[2019-08-30 06:13] LABS: ALBUMIN 1.3 g/dL (3.4-5.0); CALCIUM 7.9 mg/dL (8.5-10.1); CREATININE 0.6 mg/dL (0.7-1.3); PHOSPHORUS 2.9 mg/dL (2.5-4.9); POTASSIUM 4.4 mmol/L (3.5-5.1); TOTAL BILIRUBIN 0.4 mg/dL (<0.1-1.0); TOTAL PROTEIN 5.6 g/dL (6.4-8.2)
[2019-08-30 06:30] LABS: ABSOLUTE NEUTROPHILS 6.2 thou/uL (1.4-8.2); METAMYELOCYTES 2 %; PLATELET ESTIMATE NORMAL
--- NOTE | 2019-08-30 08:00 | NUR ---
Assumed care at 0700. RN performed sedation vacation at 0800. Propofol gtt was turned off, but versed and fentanyl remained on. At 0820, PT started to rouse. His respiratory rate increased to the 40s and his breathing appeared labored. PT did not open his eyes or follow commands. RN turned the propofol gtt back on at 0825. His respiratory status appeared to improve with sedation back on. Fall precautions in place. RN will continue to monitor.
[2019-08-30 09:40] LABS: URINE BILIRUBIN NEGATIVE (Negative); URINE BLOOD NEGATIVE (Negative); URINE CLARITY CLEAR; URINE COLOR YELLOW; URINE GLUCOSE-RANDOM* NEGATIVE (Negative); URINE KETONES NEGATIVE (Negative); URINE NITRITE-REFLEX NEGATIVE (Negative); URINE PROTEIN (DIPSTICK) NEGATIVE (Negative); URINE SPECIFIC GRAVITY <= 1.005 (1.005-1.035); URINE UROBILINOGEN 0.2 E.U./dl (0.2-1.0)
[2019-08-30 09:41] LABS: URINE LEUKOCYTES-REFLEX 1+ (Negative)
[2019-08-30 09:47] LABS: BACTERIA-REFLEX 1-9 Few /HPF (None Seen); CASTS None Seen /LPF (None Seen); CRYSTALS None Seen /LPF (None Seen); SQUAMOUS 0-3 Few /LPF (0-3); URINE RBC None Seen /HPF (0-2); URINE WBC-REFLEX 6-15 Few /HPF (0-5)
--- NOTE | 2019-08-30 13:53 | NUR ---
RN spoke with Ney Ludwin in regards to update for PT. RN updated Mr. Mascorro and stated there were no new orders for PT, he is still on the ventillator, but we have decreased his sedation successfully. He verbalized understanding. RN will continue to monitor.
[2019-08-31] VITALS (24 sets, daily range): BP systolic 96–142; BP diastolic 54–80
[2019-08-31 07:09] LABS: CALCIUM 7.6 mg/dL (8.5-10.1); CREATININE 0.6 mg/dL (0.7-1.3); POTASSIUM 4.4 mmol/L (3.5-5.1)
--- NOTE | 2019-08-31 16:18 | NUR ---
ROMAINE reviewed chart and spoke with attending physician. Pt is intubated and sedated. Pt is in restraints. ROMAINE spoke with pt's friend, Ney Mascorro, via phone to obtain info regarding pt's prior level of functioning. Pt was living at home alone. Pt was independent with ADLs. No use of DME. Pt is and has no children or family. Pt has support from his [employer] community. 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 Pt continuous to be involved in the [employer]. Per Ney, pt's [employer] community will continue to be supportive and involved in pt's care. Pt has not had HH services or post-acute placement in the past. Pt's PCP is Dr. Marjorie Melo. Ney states he will be the point of contact for pt to assist with discharge planning. Eulalio Vera and Maryann Gongora are also authorized contacts for pt. ROMAINE explained that discharge planning will be discussed as pt's condition progresses. Ney verbalized understanding. ROMAINE is following to assist as needed with discharge planning.
--- NOTE | 2019-08-31 17:17 | NUR ---
US SCAN DONE TO ASSESS RUABRACHIAL VESSEL CONTAINING PICC. NO COMPLETELY COMPRESSIBLE FROM INSERTION TO AXILLARY. WEEPING AND BLISTERS UNDER RT ARM, RECOMMEND A DIAGNOSTIC US TO CONFIRM DVT. PT ON LOVENOX, NOT RECOMMENDED TO PULL PICC AND PLACE ANOTHER DUE HIS HYPERCOAGULOPATHY AND TO TX DVT IF +DX. RN ADVISED.
--- NOTE | 2019-08-31 19:23 | NUR ---
ASSUMEED PATIENT CARE AT 0700. SEDATED ON THE VENT WITH THREE DRIPS. NOT TOLERATED ON CPAP TRIAL. CM ARM 3+ EDEMA. RIGHT UP PICC LINE SITE WITH WEAPING. TOLERATED TF. SLOWLY TOWARDS POC GOALS.
--- NOTE | 2019-08-31 21:47 | NUR ---
DAYSHIFT RN CONCERNED OF CLOTS IN RIGHT UPPER EXTREMITY DUE TO INCREASED SWELLING/WHEEPING/BLISTERS. AN ULTRASOUND OF RUE COMPLETED. RESULTS READ BACK TO AZRA CORNER TRIMMER OPERATOR SHOWING CLOTS PRESENT. ALL LINES FLUSHING AND HAVE BLOOD RETURN.
[2019-09-01] VITALS (23 sets, daily range): BP systolic 95–166; BP diastolic 57–91
[2019-09-01 04:51] LABS: BE(vivo) 3.9 mmol/L (-2 to +3); HCO3 28.7 mmol/L (22.0-26.0); PCO2 44.6 mmHg (35.0-45.0); PO2 58.9 mmHg (80.0-100.0); pH 7.427 (7.360-7.450)
[2019-09-01 05:00] LABS: HEMATOCRIT 29.6 % (42.0-52.0); HEMOGLOBIN 9.9 gm/dL (14.0-18.0); MCH 29.9 pg (26.0-34.0); MCHC 33.6 g/dL (28.0-37.0); MCV 89.1 fL (80.0-100.0); RBC 3.32 mil/uL (4.50-6.00); RDW 13.6 % (10.5-14.5); WBC 9.8 thou/uL (4.0-11.0)
[2019-09-01 05:06] LABS: PLATELET COUNT 275 thou/uL (150-400)
[2019-09-01 05:11] LABS: ALBUMIN 1.4 g/dL (3.4-5.0); CREATININE 0.7 mg/dL (0.7-1.3); POTASSIUM 4.7 mmol/L (3.5-5.1); TOTAL BILIRUBIN 0.3 mg/dL (<0.1-1.0); TOTAL PROTEIN 5.9 g/dL (6.4-8.2)
[2019-09-01 07:47] LABS: ABSOLUTE NEUTROPHILS 7.5 thou/uL (1.4-8.2); ANISOCYTOSIS SLIGHT; ATYPICAL LYMPHS 1 %; MYELOCYTES 2 %; POIKILOCYTOSIS SLIGHT; TEARDROPS OCCASIONAL
--- NOTE | 2019-09-01 13:30 | NUR ---
SW reviewed chart and spoke with nursing and attending physician. Pt remains intubated and sedated in ICU. Pt has not started vent weaning trials. Pt may need trach placement per pulm. Pt will have repeat COVID-19 test. Pt had ultrasound of RUE earlier today. ROMAINE is following to assist as needed with discharge planning.
--- NOTE | 2019-09-01 19:13 | NUR ---
SPOKE WITH TERESA HANSEN CONTACT FOR PT AT 1424, GAVE UPDATE. PT SEDATED THROUGHOUT SHIFT, HAD TO INCREASE PROPOFOL D/T TACHYPNEA AND TACHYCARDIA EARLIER THIS SHIFT. PT WITH TF, VERSED, PROPOFOL AND FENTANYL INFUSING. IVF WERE DC'D EARLIER THIS SHIFT. NO VENT CHANGES TODAY.
--- NOTE | 2019-09-01 20:41 | NUR ---
TUBE FEEDING INFUSING AT A RATE OF 50ML/HR, RESIDUALS CHECKED 300 ML OUTPUT. TUBE FEEDING HELD, WILL REASSESS.
[2019-09-02] VITALS (36 sets, daily range): BP systolic 82–130; BP diastolic 46–78
[2019-09-02 05:04] LABS: HEMATOCRIT 27.7 % (42.0-52.0); HEMOGLOBIN 9.2 gm/dL (14.0-18.0); MCH 29.3 pg (26.0-34.0); MCHC 33.1 g/dL (28.0-37.0); MCV 88.7 fL (80.0-100.0); PLATELET COUNT 299 thou/uL (150-400); RBC 3.12 mil/uL (4.50-6.00); RDW 13.7 % (10.5-14.5); WBC 9.9 thou/uL (4.0-11.0)
[2019-09-02 05:13] LABS: BE(vivo) 6.1 mmol/L (-2 to +3); HCO3 31.3 mmol/L (22.0-26.0); PCO2 48.2 mmHg (35.0-45.0); PO2 79.2 mmHg (80.0-100.0); sO2 95.9 % (92.0-98.0)
[2019-09-02 05:24] LABS: CALCIUM 7.6 mg/dL (8.5-10.1); CREATININE 0.7 mg/dL (0.7-1.3); POTASSIUM 4.5 mmol/L (3.5-5.1)
--- NOTE | 2019-09-02 07:31 | NUR ---
ASSUMED CARE OF PATIENT AT 1900, PATIENT RESPONDS TO PAINFUL STIMULI, GAG REFLEX INTACT. ATTEMPTED TO WEAN PROPOFOL OFF, RESPIRATIONS INCREASED TO 30, PROPOFOL RESTARTED AT 0600. TUBE FEEDING RESTARTED AT 0000 AT A DECREASED RATE OF 30ML/HR, PATIENT TOLERATING WELL. NO SIGN OF ACUTE DISTRESS NOTED AT THIS TIME, WILL CONTINUE TO MONITOR.
[2019-09-02 08:29] LABS: ABSOLUTE NEUTROPHILS 7.7 thou/uL (1.4-8.2); ATYPICAL LYMPHS 1 %; METAMYELOCYTES 1 %; MYELOCYTES 2 %
[2019-09-02 08:30] LABS: ANISOCYTOSIS SLIGHT; POIKILOCYTOSIS SLIGHT
--- NOTE | 2019-09-02 09:46 | NUR ---
Assumed care at 0700. PT is calm and sleeping. Sedation vacation was performed at 0800. PT did not move his extremities or follow commands. PT was noted to become tachypneic and his eyelids fluttered but did not open. RN turned sedation back on at 0815. Fall precautions in place. RN will continue to monitor.
[2019-09-02 13:46] LABS: URINE BILIRUBIN NEGATIVE (Negative); URINE BLOOD 2+ (Negative); URINE CLARITY CLEAR; URINE COLOR YELLOW; URINE GLUCOSE-RANDOM* NEGATIVE (Negative); URINE KETONES NEGATIVE (Negative); URINE LEUKOCYTES-REFLEX TRACE (Negative); URINE NITRITE-REFLEX NEGATIVE (Negative); URINE PROTEIN (DIPSTICK) NEGATIVE (Negative)
[2019-09-02 14:03] LABS: SQUAMOUS None Seen /LPF (0-3); URINE RBC 3-10 Few /HPF (0-2)
[2019-09-02 14:04] LABS: BACTERIA-REFLEX 1-9 Few /HPF (None Seen); CASTS None Seen /LPF (None Seen); CRYSTALS None Seen /LPF (None Seen); URINE WBC-REFLEX None Seen /HPF (0-5)
--- NOTE | 2019-09-02 14:55 | NUR ---
Transported PT to CT scan with RT and 2 RNs. Enhanced precautions were used during transfer. PT appeared to tolerate transfer well. Vital signs remained stable. CT of chest results are pending. RN will continue to monitor.
--- NOTE | 2019-09-02 16:11 | NUR ---
SW reviewed chart and spoke with attending physician. Pt to start vent weaning trials. Pt may need trach/peg placement pending progress with vent weaning. Following to assist as needed with discharge planning.
[2019-09-03] VITALS (68 sets, daily range): BP systolic 81–138; BP diastolic 46–77
[2019-09-03 04:28] LABS: BE(vivo) 5.7 mmol/L (-2 to +3); HCO3 30.8 mmol/L (22.0-26.0); PCO2 47.3 mmHg (35.0-45.0); PO2 77.7 mmHg (80.0-100.0); pH 7.431 (7.360-7.450); sO2 95.7 % (92.0-98.0)
[2019-09-03 05:32] LABS: BASOPHILS 0.6 % (0.0-2.0); EOSINOPHILS 4.4 % (0.0-3.0); HEMOGLOBIN 9.6 gm/dL (14.0-18.0); LYMPHOCYTES 3.9 % (24.0-44.0); MCH 29.8 pg (26.0-34.0); MCHC 33.1 g/dL (28.0-37.0); MONOCYTES 10.8 % (1.0-8.0); PLATELET COUNT 338 thou/uL (150-400); POLYS 80.3 % (36.0-66.0); RBC 3.22 mil/uL (4.50-6.00)
[2019-09-03 06:23] LABS: ALBUMIN 1.4 g/dL (3.4-5.0); CALCIUM 7.9 mg/dL (8.5-10.1); CREATININE 0.7 mg/dL (0.7-1.3); POTASSIUM 4.6 mmol/L (3.5-5.1); TOTAL BILIRUBIN 0.3 mg/dL (<0.1-1.0); TOTAL PROTEIN 6.2 g/dL (6.4-8.2)
--- NOTE | 2019-09-03 06:49 | NUR ---
Assumed patient care at 1900. Patient remains on the ventilator and is sedated with Propofol, Versed, and Fentanyl. Patient taken off of Levophed and VS has remained stable throughout shift and no acute events occurred. Family updated on plan of care and all questions answered.
--- NOTE | 2019-09-03 18:48 | NUR ---
PT GRANDSON UPDATED SEVERAL TIMES, WANTS TO TALK TO , DR. HAYWARD AND Silvia GARCIA AWARE AND THEY HAVE HIS NUMBER. PT NOT PROGRESSING TOWARDS GOALS.
[2019-09-04] VITALS (50 sets, daily range): BP systolic 102–161; BP diastolic 49–88
[2019-09-04 04:41] LABS: HCO3 33.9 mmol/L (22.0-26.0); PCO2 55.8 mmHg (35.0-45.0); PO2 77.9 mmHg (80.0-100.0); pH 7.401 (7.360-7.450); sO2 95.3 % (92.0-98.0)
[2019-09-04 05:02] LABS: ALBUMIN 1.7 g/dL (3.4-5.0); CREATININE 0.7 mg/dL (0.7-1.3); TOTAL BILIRUBIN 0.3 mg/dL (<0.1-1.0); TOTAL PROTEIN 6.2 g/dL (6.4-8.2)
[2019-09-04 05:17] LABS: HEMATOCRIT 26.5 % (42.0-52.0); HEMOGLOBIN 8.8 gm/dL (14.0-18.0); MCHC 33.3 g/dL (28.0-37.0); MCV 90.1 fL (80.0-100.0); PLATELET COUNT 333 thou/uL (150-400); RBC 2.95 mil/uL (4.50-6.00); WBC 8.8 thou/uL (4.0-11.0)
[2019-09-04 08:04] LABS: ABSOLUTE NEUTROPHILS 5.7 thou/uL (1.4-8.2); ANISOCYTOSIS SLIGHT; HYPOCHROMASIA SLIGHT; METAMYELOCYTES 1 %; POIKILOCYTOSIS SLIGHT
[2019-09-04 08:05] LABS: LARGE PLATELETS OCCASIONAL
--- NOTE | 2019-09-04 15:30 | NUR ---
ROMAINE reviewed chart and spoke with attending physician. Pt remains intubated and sedated. ROMAINE spoke with pt's friend, Ney Mascorro, via phone. Ney states that he has been kept updated by nursing and physicians. Ney spoke with pt's step grandson, Eulalio, and nephew, Mike Peterson III, to provide update. Ney explained that a decision about code status will need to be discussed. Pt has an older brother, who may have mild dementia. Per Ney, Mike states that he may be pt's DPOA, but they do not have any documentation to support this. Contact info for Mike Peterson provided (home: [phone] cell: [phone]). Home number is preference. This info was provide to pt's nurse and attending physician. ROMAINE is following to assist as needed with discharge planning.
[2019-09-05] VITALS (29 sets, daily range): BP systolic 101–147; BP diastolic 52–80
--- NOTE | 2019-09-05 02:15 | NUR ---
PT SEDATED ON VERSED AND FENTANYL. PT PRONE ON ARRIVAL OF SHIFT. PT TURNED TO SUPINE POSITION AT 0000. PT WASN'T TOLERATING BEING PRONE, RESPIRATIONS IN THE 30S AND HR IN THE LOW 100S. TUBEFEEDINGS RESUME CURRENTLY. NOTED R BUTTOCK ULCER. MULTIPLE BLISTERS ON LEFT WRIST, RIGHT FOREARM UPPER ARM, LEFT BUTTOCK AND LEFT LEG. PICTURES TAKEN OF OPEN AREAS. WILL CONTINUE TO MONITOR PT.
[2019-09-05 05:39] LABS: CALCIUM 8.4 mg/dL (8.5-10.1); CREATININE 0.6 mg/dL (0.7-1.3); POTASSIUM 4.6 mmol/L (3.5-5.1)
--- NOTE | 2019-09-05 07:14 | NUR ---
SEDATION PERFORMED AT 0400. PT DIDN'T FOLLOW COMMANDS. REDRAWS FROM PAIN AND GRIMACES WELL. HR IN THE LOW 100S. RESPIRATIONS IN THE LOW 30S DURING THE SEDATION. WILL CONTINUE TO MONITOR.
--- NOTE | 2019-09-05 10:47 | NUR ---
ATTEMPTED TO CALL CARLOS IBARRA, WENT TO VOICE MAIL AND HIS MAILBOX IS FULL
--- NOTE | 2019-09-05 13:00 | NUR ---
PATIENT TOLERATING SEDATION DECREASED TO VERSED AT 5 MG/HR AND FENTANYL WEANED TO 50 MCG/HR, O2 SAT IN THE UPPER 90'S. TOLERATING TUBE FEEDINGS, RATE INCREASED TO 55 ML/HR URINE OUT PUT MARGINAL AT 30 ML/HR. WILL CONTINUE TO MONITOR.
--- NOTE | 2019-09-05 16:30 | NUR ---
PATIENT TURNED PRONE. FIO2 DECREASED TO 30%. MONITOR NSR. VSS. PROPOFOL AT 20MCG/KG/MIN.
[2019-09-05 17:07] LABS: HISTOPLASMA MYCELIAL-ID Negative (Negative)
--- NOTE | 2019-09-05 18:30 | NUR ---
PATIENT REMAINS STABLE. SPOKE WITH GRANDSON AT 1530 AND UPDATED HIM TO HIS GRAND FATHER'S STATUS. REASSURANCE GIVEN. WILL CONTINUE TO MONITOR PATIENT SLOWLY PROGRESSES.
[2019-09-05 19:33] LABS: T-SPOT.TB Negative
[2019-09-06] VITALS (20 sets, daily range): BP systolic 107–158; BP diastolic 55–83
--- NOTE | 2019-09-06 05:02 | NUR ---
PT IN PRONE POSITION UPON ASSUMPTION OF CARE AT 1900. VSS. PT TUNRED TO BACK AT 0015. PT HR WENT UP TO LOW 100s AND SATS WERE <94 FOR ABOUT 2 HOURS AND THEN HR DROPPED TO 80s AND SATS IN HIGH 90s. PT DOESNT FOLLOW COMMAND NEITHER DID HE RESPOND TO PAIN. HE DOES HAVE POSITIVE COUGH AND GAG. PT IS STABLE BUT NOT PROGRESSING WELL TOWARDS POC
[2019-09-06 05:09] LABS: BE(vivo) 6.3 mmol/L (-2 to +3); HCO3 31.9 mmol/L (22.0-26.0); PCO2 51.9 mmHg (35.0-45.0); PO2 62.1 mmHg (80.0-100.0); pH 7.406 (7.360-7.450); sO2 91.6 % (92.0-98.0)
[2019-09-06 07:15] LABS: ABSOLUTE NEUTROPHILS 11.8 thou/uL (1.4-8.2); BASOPHILS 0.5 % (0.0-2.0); EOSINOPHILS 0.1 % (0.0-3.0); HEMATOCRIT 23.4 % (42.0-52.0); HEMOGLOBIN 7.6 gm/dL (14.0-18.0); LYMPHOCYTES 3.6 % (24.0-44.0); MCH 29.3 pg (26.0-34.0); MCHC 32.7 g/dL (28.0-37.0); MCV 89.8 fL (80.0-100.0); MONOCYTES 10.2 % (1.0-8.0); PLATELET COUNT 299 thou/uL (150-400); POLYS 85.6 % (36.0-66.0); RDW 13.9 % (10.5-14.5); WBC 13.7 thou/uL (4.0-11.0)
[2019-09-06 07:36] LABS: ALBUMIN 2.5 g/dL (3.4-5.0); CALCIUM 8.5 mg/dL (8.5-10.1); CREATININE 0.7 mg/dL (0.7-1.3); POTASSIUM 4.1 mmol/L (3.5-5.1); TOTAL BILIRUBIN 0.3 mg/dL (<0.1-1.0); TOTAL PROTEIN 6.2 g/dL (6.4-8.2)
--- NOTE | 2019-09-06 17:22 | NUR ---
PT INTUBATED AND SEDATED ON VERSED AND FENTANYL. VSS, ST ON TELE, FERNANDO TO DD. PT TOLERATING TUBE FEEDINGS. PT DOES NOT FOLLOW ANY COMMANDS DURING SEDATION VACATION. PT SON UPDATED ON CARE TODAY VIA ZOOM VIDEO. WILL CONTINUE TO MONITOR.
[2019-09-07] VITALS (24 sets, daily range): BP systolic 100–158; BP diastolic 56–88
--- NOTE | 2019-09-07 16:16 | NUR ---
SW reviewed chart and spoke with attending physician. Pt remains intubated and sedated. In Enhanced Isolation. Pt to start vent weaning trials. SW is following to assist as needed.
[2019-09-08] VITALS (24 sets, daily range): BP systolic 110–160; BP diastolic 57–84
--- NOTE | 2019-09-08 01:45 | NUR ---
Pt is showing signs of worsen of respitaroy status. His secretion is more bloody, his RR is as high as 40 per ventilator. O2 sat remains 100 % noted. Suction pt w/o any improvement. He is not tolerating to wean down any sedative at this time. Increase propofol to 40 mcg/kg/min with good effects. His breathing now is reading 27 time per minute. Will continue to watch him closely.
[2019-09-08 03:55] LABS: BE(vivo) 4.1 mmol/L (-2 to +3); HCO3 29.9 mmol/L (22.0-26.0); PCO2 51.7 mmHg (35.0-45.0); PO2 72.2 mmHg (80.0-100.0)
[2019-09-08 05:33] LABS: HEMATOCRIT 24.6 % (42.0-52.0); MCH 29.7 pg (26.0-34.0); MCHC 32.7 g/dL (28.0-37.0); MCV 90.9 fL (80.0-100.0); PLATELET COUNT 281 thou/uL (150-400); RBC 2.71 mil/uL (4.50-6.00); RDW 14.7 % (10.5-14.5); WBC 11.8 thou/uL (4.0-11.0)
[2019-09-08 05:44] LABS: ALBUMIN 3.1 g/dL (3.4-5.0); CALCIUM 8.7 mg/dL (8.5-10.1); CREATININE 0.6 mg/dL (0.7-1.3); POTASSIUM 4.1 mmol/L (3.5-5.1); TOTAL BILIRUBIN 0.4 mg/dL (<0.1-1.0); TOTAL PROTEIN 6.5 g/dL (6.4-8.2)
[2019-09-08 07:38] LABS: ABSOLUTE NEUTROPHILS 9.1 thou/uL (1.4-8.2); METAMYELOCYTES 1 %; PLATELET ESTIMATE NORMAL
--- NOTE | 2019-09-08 09:33 | NUR ---
PATIENT PLACED ON CPAP MODE AROUND 0740. PATIENT TOLERATING IT WELL, BUT BEGAN TO GET TACHYPNEIC. PATIENT PLACED NACL ON AC PER RT.
--- NOTE | 2019-09-08 15:31 | NUR ---
SW reviewed chart and spoke with attending physician. Pt continues vent weaning trials. Pt is on IV abx. SW is following to assist as needed.
[2019-09-09] VITALS (24 sets, daily range): BP systolic 89–155; BP diastolic 45–79
[2019-09-09 05:14] LABS: HCO3 32.7 mmol/L (22.0-26.0); PCO2 52.9 mmHg (35.0-45.0); pH 7.409 (7.360-7.450); sO2 78.8 % (92.0-98.0)
[2019-09-09 05:16] LABS: PO2 43.4 mmHg (80.0-100.0)
[2019-09-09 05:26] LABS: HEMATOCRIT 25.2 % (42.0-52.0); HEMOGLOBIN 8.2 gm/dL (14.0-18.0); MCH 29.4 pg (26.0-34.0); MCHC 32.7 g/dL (28.0-37.0); PLATELET COUNT 243 thou/uL (150-400); RDW 14.8 % (10.5-14.5); WBC 11.7 thou/uL (4.0-11.0)
[2019-09-09 05:48] LABS: ALBUMIN 3.3 g/dL (3.4-5.0); CALCIUM 8.7 mg/dL (8.5-10.1); CREATININE 0.6 mg/dL (0.7-1.3); POTASSIUM 3.7 mmol/L (3.5-5.1); TOTAL BILIRUBIN 0.4 mg/dL (<0.1-1.0); TOTAL PROTEIN 6.5 g/dL (6.4-8.2)
--- NOTE | 2019-09-09 05:53 | NUR ---
Pt is not tolerated to be weaning off sedation as evidence of ABG showing lower Spo2. titrating sedation back up, RT increased FiO2 to 60%. He is looking much more comfortable at this time. Continue to monitor any changes.
[2019-09-09 08:43] LABS: ABSOLUTE NEUTROPHILS 9.8 thou/uL (1.4-8.2); PLATELET ESTIMATE NORMAL
--- NOTE | 2019-09-09 10:57 | NUR ---
ON THE VENT SEDATED, TITRATING SEDATION TOLERATED. VITALS STABLE AND IS TOLERATING TUBEFEEDING PER OGT WITH MINIMAL RESIDUALS. ASSESSMENT COMPLETED. NO WEANING TRIAL TODAY. WILL CONTINUE WITH POC.
[2019-09-09 12:16] LABS: BE(vivo) 6.4 mmol/L (-2 to +3); HCO3 33.4 mmol/L (22.0-26.0); PCO2 63.7 mmHg (35.0-45.0); PO2 152.2 mmHg (80.0-100.0); pH 7.337 (7.360-7.450); sO2 98.8 % (92.0-98.0)
--- NOTE | 2019-09-09 16:41 | NUR ---
ROMAINE reviewed chart and spoke with attending physician. Pt remains intubated and sedated. No vent weaning trials today. ROMAINE spoke with pt's friend, Ney Mascorro, via phone to provide update. Per Ney, pt's family and Ca[employer] family are hopeful for pt to recover. Ney requests to speak with attending physician regarding plan of care and treatment plan. ROMAINE provided contact info for Ney to attending physician. ROMAINE is following to assist as needed with discharge planning.
--- NOTE | 2019-09-09 17:14 | NUR ---
PATIENT PLACED IN PRONE POSITION AT 1630, TUBEFEEDING ON HOLD FOR THIS. PATIENT IS TOLERATING THIS POSITION WELL.
[2019-09-10] VITALS (24 sets, daily range): BP systolic 102–150; BP diastolic 58–83
--- NOTE | 2019-09-10 04:36 | NUR ---
NO CHANGES OVERNIGHT. PT INTUBATED AND ON VENT. PT IN PRONE POSITION FOR EIGHT HOURS TOTAL AND WAS MOVED TO BACK AT 0030. ON PROPOFOL AND VERSED GTTS FOR VENT MANAGEMENT. NO PROGRESS OR DECLINE OVERNIGHT. WILL CONTINUE TO MONITOR.
[2019-09-10 09:17] LABS: HCO3 33.1 mmol/L (22.0-26.0); PCO2 55.6 mmHg (35.0-45.0); PO2 102.9 mmHg (80.0-100.0); pH 7.392 (7.360-7.450); sO2 97.6 % (92.0-98.0)
--- NOTE | 2019-09-10 15:19 | NUR ---
ROMAINE reviewed chart and spoke with nursing and attending physician. Pt remains intubated and sedated. ROMAINE spoke with pt's family friend, Ney Mascorro, regarding possible face time visit with pt during daily prayers with their cheondoism community. ROMAINE discussed plan of care with attending physician. Decisions will need to be made reagrding treatment plan. Pt remains a full code. ROMAINE spoke with pt's nephew, Mike Peterson (Home: (preferred contact number) and cell: [phone]. Introduced role of SW to Mike. Mike states that he is pt's only blood relative. Mike has been hospitalized and recently returned home and is recovering at home. Mike is agreeable with assisting in making medical decisions for pt as needed. Mike states that he has been in contact with pt's step grandomar Eulalio and pt's friend, Ney Mascorro. Mike is aware of pt's current status and is available to assist as needed. Pt does not have a DPOA in place. ROMAINE updated contact info for Mike in computer. ROMAINE updated attending physician. ROMAINE is following to assist as needed with discharge planning.
[2019-09-11] VITALS (24 sets, daily range): BP systolic 107–167; BP diastolic 64–92
--- NOTE | 2019-09-11 04:04 | NUR ---
Pt was placed in the prone position at approx 0030, and initially, did well. At 0230, pt becamed tachycardic/tachypneic and sats dropped to the 70's, he was suctioned, (there was a large amount of oral secretions noted), FiO2 was temporarily increased to 100% and his versed was increased, and when that did not resolve, he was placed back to a semi-de paz position. Currently, he is SR/SA rates in the 80's to 90's, RR is teens to low 20's and sats are 100% back on 40% FiO2. Pt did have a large soft stool, pericare was provided at that time. Will continue to monitor, the bed is in the low/locked position, siderails are up x 4 and POC is being followed with minimal improvement noted.
--- NOTE | 2019-09-11 15:11 | NUR ---
ROMAINE reviewed chart and spoke with attending physician. Pt remains on the ventilator in ICU. Discussion needs to occur with pt's nephew and family friend, Ney and Eulalio jack, regarding plan of care. ROMAINE discussed case with Director of Case Mgmt and Risk Mgmt. Recommendation made to have conference call with physicians and pt's family/friends to ensure that everyone is aware of pt's current condition and to discuss the treatment plan. Trach/peg placement to be discussed. Arranging conference call for tomorrow morning at 1000. ROMAINE spoke with Mike Brewster and Eulalio via phone to provide update. All are aware and agreement with plan. Awaiting final details from risk mgmt to provide to pt's family/friends and physicians. ROMAINE is following to assist as needed with discharge planning.
--- NOTE | 2019-09-11 19:48 | NUR ---
PATIENT PLACED IN PRONE POSITION AT 1630, TOLERATING. SPOKE WITH FAMILY TODAY. CONTINUOUS SEDATION DC'D APPROX 1040, TOLERATING. REPORTED OFF TO NOC SHIFT RN.
--- NOTE | 2019-09-11 22:11 | NUR ---
PATIENT IN PRONE POSITION AT START OF SHIFT 1900.
[2019-09-12] VITALS (24 sets, daily range): BP systolic 129–187; BP diastolic 64–104
--- NOTE | 2019-09-12 00:20 | NUR ---
PATIENT REPOSITIONED FROM PRONE TO SUPINE WITH ASSISTANCE OF RT AND ADDITIONAL NURSE. SIGNIFICANT SWELLING NOTED TO LEFT SIDE OF THE FACE, COOL COMPRESS APPLIED. TUBE FEEDING RESTARTED.
[2019-09-12 04:08] LABS: BE(vivo) 13.4 mmol/L (-2 to +3); HCO3 40.1 mmol/L (22.0-26.0); PCO2 64.9 mmHg (35.0-45.0); PO2 126.3 mmHg (80.0-100.0); pH 7.409 (7.360-7.450); sO2 98.4 % (92.0-98.0)
[2019-09-12 06:30] LABS: HEMATOCRIT 28.1 % (42.0-52.0); HEMOGLOBIN 9.1 gm/dL (14.0-18.0); MCH 29.9 pg (26.0-34.0); MCHC 32.3 g/dL (28.0-37.0); MCV 92.7 fL (80.0-100.0); PLATELET COUNT 257 thou/uL (150-400); RBC 3.03 mil/uL (4.50-6.00); RDW 15.4 % (10.5-14.5); WBC 10.9 thou/uL (4.0-11.0)
--- NOTE | 2019-09-12 06:39 | NUR ---
PATIENT OPENS EYES WHEN NAME IS CALLED, DOES NOT FOLLOW COMMANDS. TOLERATING TUBE FEEDING. VENTILATOR 40% FIO2, O2 SAT REMAINED ABOVE 95%. PRN LORAZEPAM GIVEN FOR ANXIETY. LEFT FACIAL SWELLING DECREASING. FERNANDO PATENT WITH GREATER THAN 30ML/HR. BLOOD SUGAR CLOSELY MONITORED. NO SIGN OF ACUTE DISTRESS NOTED AT THIS TIME. WILL CONTINUE TO MONITOR.
[2019-09-12 06:45] LABS: ALBUMIN 3.1 g/dL (3.4-5.0); CALCIUM 8.8 mg/dL (8.5-10.1); CREATININE 0.6 mg/dL (0.7-1.3); POTASSIUM 3.3 mmol/L (3.5-5.1); TOTAL BILIRUBIN 0.5 mg/dL (<0.1-1.0); TOTAL PROTEIN 6.7 g/dL (6.4-8.2)
[2019-09-12 07:25] LABS: ABSOLUTE NEUTROPHILS 8.5 thou/uL (1.4-8.2); PLATELET ESTIMATE NORMAL
[2019-09-13] VITALS (22 sets, daily range): BP systolic 93–156; BP diastolic 51–93
--- NOTE | 2019-09-13 01:30 | NUR ---
PT TURNED ON HIS BACK FROM PRONE POSITION AT 0100 AM. PT TOLERATED TURINING. TUBE FEED RESTARTED.
[2019-09-13 05:16] LABS: ABSOLUTE NEUTROPHILS 8.1 thou/uL (1.4-8.2); BASOPHILS 0.5 % (0.0-2.0); EOSINOPHILS 0.7 % (0.0-3.0); HEMATOCRIT 28.3 % (42.0-52.0); HEMOGLOBIN 9.2 gm/dL (14.0-18.0); LYMPHOCYTES 4.8 % (24.0-44.0); MCH 29.8 pg (26.0-34.0); MCHC 32.4 g/dL (28.0-37.0); MCV 91.9 fL (80.0-100.0); MONOCYTES 10.8 % (1.0-8.0); PLATELET COUNT 228 thou/uL (150-400); POLYS 83.2 % (36.0-66.0); RBC 3.08 mil/uL (4.50-6.00); RDW 15.5 % (10.5-14.5); WBC 9.8 thou/uL (4.0-11.0)
[2019-09-13 05:21] LABS: FIBRINOGEN 222.9 mg/dL (210-360); INR 1.1; PROTIME 11.6 Seconds (9.3-11.4)
[2019-09-13 05:39] LABS: ALBUMIN 3.2 g/dL (3.4-5.0); CALCIUM 9.1 mg/dL (8.5-10.1); CREATININE 0.5 mg/dL (0.7-1.3); POTASSIUM 3.6 mmol/L (3.5-5.1); TOTAL BILIRUBIN 0.7 mg/dL (<0.1-1.0); TOTAL PROTEIN 6.8 g/dL (6.4-8.2)
--- NOTE | 2019-09-13 06:46 | NUR ---
PT TOLERATING TUBE FEED. EYE LESS EDEMATOUS TODAY. ACTIVAN AND DILAUDID PRN THROUGHOUT THE NIGHT HELPED WITH PT'S ELEVATED HR, INCREASED RR AND HIGH BP. CHART CHECK. CONTINUE TO MONITOR. PT NOT PROGRESSING TOWARDS GOALS. REPORT GIVEN TO ONCOMING RN.
--- NOTE | 2019-09-13 11:27 | NUR ---
ASSUMED CARE AT 0700, ASSESSMENT AND VITAL SIGNS COMPLETED PER ICU PROTOCOL. PT PRONED AT 0830, RT AND RNX4 PRESENT. DR. HAYWARD ROUNDED THIS AM. DR. RUEDA ROUNDED THIS AM. DR. HAYWARD NOTIFIED OF LOW URINE OUTPUT. NEW ORDERS RECEIVED AND EXECUTED.
[2019-09-14] VITALS (25 sets, daily range): BP systolic 93–199; BP diastolic 53–99
[2019-09-14 02:41] LABS: BASOPHILS 0.2 % (0.0-2.0); EOSINOPHILS 0.8 % (0.0-3.0); HEMATOCRIT 26.7 % (42.0-52.0); HEMOGLOBIN 8.7 gm/dL (14.0-18.0); LYMPHOCYTES 4.8 % (24.0-44.0); MCH 30.1 pg (26.0-34.0); MCHC 32.5 g/dL (28.0-37.0); MCV 92.6 fL (80.0-100.0); PLATELET COUNT 212 thou/uL (150-400); POLYS 84.2 % (36.0-66.0); RBC 2.88 mil/uL (4.50-6.00); RDW 15.2 % (10.5-14.5); WBC 9.5 thou/uL (4.0-11.0)
[2019-09-14 02:56] LABS: ALBUMIN 2.9 g/dL (3.4-5.0); CALCIUM 8.6 mg/dL (8.5-10.1); CREATININE 0.7 mg/dL (0.7-1.3); TOTAL BILIRUBIN 0.3 mg/dL (<0.1-1.0); TOTAL PROTEIN 6.3 g/dL (6.4-8.2)
[2019-09-14 06:13] LABS: BE(vivo) 14.6 mmol/L (-2 to +3); HCO3 39.7 mmol/L (22.0-26.0); PCO2 53.4 mmHg (35.0-45.0); PO2 116.7 mmHg (80.0-100.0); pH 7.489 (7.360-7.450); sO2 98.4 % (92.0-98.0)
--- NOTE | 2019-09-14 07:22 | NUR ---
Assessment and Intervention documented. Pt rested comfortable through out the night. Pt able to follow commands when off or on minimal sedation. Vital sign WNL. Tolerating tube feedings. Patient is stable but no progressing toward goals.
--- NOTE | 2019-09-14 08:38 | NUR ---
Spoke with Mike which is the patient's nephew and informed him that we do not allow visitors for the palliative extubation process. He was agreeable to that info, and said he would inform the rest of the immediate family.
--- NOTE | 2019-09-14 11:48 | NUR ---
LATE ENTRY---CONFERENCE CALL ON THURSDAY, SEPTEMBER 12, 2019 AT 1000 Conference call held with ROMAINE, Director of Case Mgmt, Risk Mgmt, Dr. Black, Dr. Kovacs, pt's nephew (Mike Peterson), pt's step-grandson (Eulalio Vera) and family friend, Ney Mascorro. Pt's overall clinical condition discussed. Pt had been on the ventilator for 22 days, as of 09/11. Pt has not successfully weaned off the vent and has not shown signs of being able to wean off the vent. Pulmonary physician discussed the vent weaning trials and the muscle strength needed to successfully vent wean. Discussed how COVID-19 has effected pt's body. Option for trach/peg placement discussed. Pt's nephew stated that he would not want to put pt through any time of surgical procedure at this time, and he would want for pt to be comfortable. Pt's step grandson had expressed that he wanted to give pt more time to see if he would be able to vent weaning, including have trach and peg tube placed. After further discussion with physicians and team, pt's step grandson acknowledged that pt would want to be kept comfortable. All agreeable with plan to make pt a DNR. Family to follow up with music supervisor today to discuss pt's current status. Pt's step-grandson asked to allow the weekend to notify members of their Mandaeism. Anticipate pt will be palliatively extubated later today. ROMAINE further discussed with risk mgmt and director of Case Mgmt to see if it would be possible for pt's family to skype, face time or teleconference to see pt. Patient Experience Coordinator to assist. ROMAINE is following and is available to assist as needed.
--- NOTE | 2019-09-14 12:00 | NUR ---
AFIB RVR-140'S, RESTLESS, ANXIOUS. DR. RUEDA NOTIFIED. ATIVAN AND HYDROCODONE IV GIVEN WITH RELIEF. HR DECREASED TO 119, RESTING QUIETLY.
--- NOTE | 2019-09-14 14:35 | NUR ---
PROVIDER NOTIFIED ABOUT HR IN THE 130S, ORDERS TO GIVE PRN PAIN MEDICINE.
--- NOTE | 2019-09-14 20:42 | NUR ---
FAMILY SPOKE WITH PHYSICIAN TODAY, PLANS TO PALL. EXTUBATE ON 09/15. DID A ZOOM CALL WITH GNOSTICISM MEMBERS FOR A PRAYER MEETING WITH PERMISSION OF FAMILY.
[2019-09-15] VITALS (23 sets, daily range): BP systolic 94–162; BP diastolic 58–90
--- NOTE | 2019-09-15 06:43 | NUR ---
Pt was alert and interactive with his bath this morning, he was still too weak to help much, but he was able to nod appropriately to questions. He was told that people were worried about him, and praying for him, he nodded NO when asked if he was worried. He nodded YES to being in the hospital and he nodded yes to wanting to recover.
--- NOTE | 2019-09-15 15:31 | NUR ---
ASSESSMENTS AND INTERVENTIONS DOCCUMENTED. PATIENT ALERT, NODDING HEAD TO QUESTIONS APPROPRIATLY AND MOVING ALL EXTREMITIES. DR. RUEDA ROUNDING, AND UPDATED ABOUT PATIENT STATUS. PATIENT RESTING AND HOLDING RN HAND. RN ASKING PATIENT IF HE WANTS THE TUBE OUT, PATIENT NODDING HEAD YES. PATIENT INTERMITTENTLY ATTEMPTING TO PULL OUT TUBE. FAMILY WANTING TO WITHDRAW CARE. DISCUSSED WITH DR. RUEDA. ORDERS RECIEVED. FAMILY CALLING FOR AN UPDATE. FAMILY UPDATED. FAMILY UNAWARE THAT THE PATIENT HAS BEEN ALERT AND RESPONSIVE. FAMILY NOT WANTING TO WITHDRAW CARE AT THIS TIME. ZOOM MEETING WITH FAMILY SCHEDULED TO HAPPEN TO ALLOW THEM TO SEE THE PATIENT AND IMPROVE THEIR JUDGEMENT TO MAKE THE BEST DECISION.
--- NOTE | 2019-09-15 17:13 | NUR ---
ROMAINE reviewed chart and spoke with nursing and attending physician. Per chart, pt's family/Jain religion did Zoom call last evening. Plan was to extubate pt tomorrow, 09/15. ROMAINE received call from pt's friend, Ney, requesting clarification of pt's plan of care. ROMAINE reviewed chart. Attending physician spoke with pt's nephew, Mike, earlier today. Mike was agreeable with plans to palliatively extubate pt today and initiate comfort care measures. Ney states that he spoke with pt's nurse for an update and he was informed that pt was alert. Ney states that they need clarification on pt's current status, and they are not ready to extubate pt today. ROMAINE discussed with attending physician. Requested coke inspector contact pt's step grandson to discuss. ROMAINE spoke with Ney via phone, who states that pt's nurse had communicated with Ney and Eulalio via Face Time. Per Ney, pt did respond to their questions regarding his treatment plan and nodded that he would want to have a trach and peg placed. Ney states he has spoke with pt's nephew, Mike, to provide update. ROMAINE discussed with Director of Case Mgmt and attending physician. Will follow and discuss plan of care tomorrow with clinical team.
[2019-09-16] VITALS (23 sets, daily range): BP systolic 98–173; BP diastolic 51–92
[2019-09-16 05:44] LABS: HEMATOCRIT 26.4 % (42.0-52.0); HEMOGLOBIN 8.4 gm/dL (14.0-18.0); MCH 29.9 pg (26.0-34.0); MCHC 31.8 g/dL (28.0-37.0); MCV 94.2 fL (80.0-100.0); RBC 2.8 mil/uL (4.50-6.00); RDW 16.1 % (10.5-14.5); WBC 8.5 thou/uL (4.0-11.0)
[2019-09-16 06:13] LABS: CALCIUM 8.8 mg/dL (8.5-10.1); CREATININE 0.6 mg/dL (0.7-1.3); POTASSIUM 3.3 mmol/L (3.5-5.1)
--- NOTE | 2019-09-16 08:27 | NUR ---
PT FOLLOWING COMMANDS. NO FAMILY INQUIRIES OVER NIGHT. REPORT GIVEN TO COREY JENNINGS. CHART CHECK. PT SLOWLY PROGRESSING TOWARDS GOALS. CONTINUE TO MONITOR.
--- NOTE | 2019-09-16 09:50 | NUR ---
ASSUMED CARE OF PATIENT AT 0700 TODAY. PATIENT IS ALERT AND RESPONSIVE, FOLLOWS SIMPLE COMMANDS AND NODS HEAD IN AGREEMENT TO CONVERSATION. PATIENT UPDATED TO THE POC AND REASSURANCE GIVEN. PATIENT PLACED ON CPAP TRIAL AT O915 TODAY.
--- NOTE | 2019-09-16 12:06 | HC ---
[facility] [place] [address] CONSULTATION Name: OROPA WAY Room #: 241-P [facility] IN M.R.#: [id number] Admission: 08/17/19 Attend Phys: Evans Bruce Discharge: Date of : [birth year] Report #: [id number] THIS REPORT FOR: cc: ISAURO - No family physician/PCP ISAURO - No family physician/PCP Adrián Aviles MD ~ CC: [facility] physician/PCP Evans Cho DATE OF SERVICE: 09/08/2019 CHIEF COMPLAINT: Multiple ulcerations. HISTORY OF PRESENT ILLNESS: This is an 88-year-old male patient who originally presented to the Emergency Department in July with symptoms of shortness of breath. He was noted to have significant respiratory failure and was found to be COVID-19 positive. He is on a respirator and minimally responsive. He was noted to have ulceration involving his left forearm, right elbow region, left thigh and buttock and left parasacral region. The patient can provide no information about himself at this time. PAST MEDICAL HISTORY: Positive for history of diabetes mellitus, history of hypertension as well as the recent development of respiratory failure. CURRENT MEDICATIONS: Include hydromorphone, lorazepam, vancomycin, polyethylene glycol, bisacodyl, methylprednisolone, tamsulosin, amlodipine, sodium chloride, alteplase, purified water, hydromorphone, dextrose, cefepime, metoclopramide, enoxaparin, famotidine, insulin, midazolam, propofol, ondansetron. ALLERGIES: No known drug allergies. FAMILY HISTORY: Unknown. 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 REVIEW OF SYSTEMS: Not obtainable due to the patient being unresponsive and on a respirator and unable to answer any questions. PHYSICAL EXAMINATION: VITAL SIGNS: At this time include temperature 99.2, pulse 99, respiratory rate 33, blood pressure 146/72. GENERAL: This is a chronically ill-appearing male patient who is nonresponsive. HEENT: Head normocephalic. Nose and throat demonstrate patient is orally intubated. [address] [address] CONSULTATION Name: ROOPA WAY Room #: 241-P [facility] IN M.R.#: [id number] Admission: 08/17/19 Attend Phys: Evans Bruce Discharge: Date of : [birth year] Report #: [id number] NECK: Supple. LUNGS: Diminished. HEART: Regular without obvious murmur. ABDOMEN: Soft, nontender. LOWER EXTREMITIES AND SKIN: The patient noted to have multiple bullae that are relatively small involving the left forearm, right AC fossa, left thigh and buttock region and the left parasacral region. All these remain relatively superficial. NEUROLOGIC: The patient is nonresponsive. CLINICAL IMPRESSION: 1. 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 2. Acute respiratory failure, requiring mechanical ventilation. 3. COVID-19 positive. 4. Type 2 diabetes mellitus. 5. Mild protein-calorie malnutrition with albumin 3.3. 6. Generalized weakness. RECOMMENDATIONS: At this point in time, we will recommend the bordered foam to the areas involving the left forearm and right AC fossa to be changed daily. To the parasacral region, we will recommend moisture barrier cream otherwise be left open to air. He will need q. 2 hour turning and positioning. The patient's nursing staffs were educated on bedside position changes with the COVID positioning when he is prone on the ventilator. He will need a low air loss mattress. He will need his heels floated or placed in PRAFO boots at all times. He will need ongoing nutritional support. I appreciate being asked to see him in consultation. <ELECTRONICALLY SIGNED> By: Adrián Aviles MD 09/16/19 1206 [id number] Adrián Aviles MD /nt
--- NOTE | 2019-09-16 13:15 | NUR ---
SPOKE WITH TREMAINE WAY ABOUT PATIENT'S CONDITION. DR DAVIS HERE AND INFORMED OF LOW POTASSIUM ORDERS NOTED.
--- NOTE | 2019-09-16 14:27 | NUR ---
PATIENT EXTUBATED TO 40% FACE SHIELD, OG TUBE ASPIRATED AND REMOVED WITH EXTUBATION AT 1339. PATIENT ALERT AND COOPERATIVE. O2 SAT IN THE UPPER 90'S AND MONITOR SHOWING SR TO ST WITH PAC'S. SPOKE WITH GRANDNAZIA SANTANA AND UPDATED HIM TO THE PATIENT STATUS.
--- NOTE | 2019-09-16 16:11 | NUR ---
SW reviewed chart and spoke with attending physician. Pt continuing vent weaning trials. Repeat COVID-19 test is pending at this time. Plan is for pt to continue aggressive care at this time. Possible trach/peg placement when stable. Pt will need LTAC placement s/p trach/peg placement. LTAC placement was discussed with pt's step grandson, Eulalio, and family friend, Ney yesterday. ROMAINE is following to assist as needed with discharge planning.
--- NOTE | 2019-09-16 19:00 | NUR ---
SPOKE WITH GRANDSON REGARDING PATIENT STATUS AND AWARE THAT HIS GRANDFATHER IS A FULL CODE, VARIFIED THAT HE IS AWARE AND PATIENT IS AWARE. BLOOD GLUCOSE 107 INSULIN HELD PATIENT IS NPO. DR RUEDA INFORMED VIA PHONE, AWAITING ORDERS. O2 SAT REMAINS IN THE UPPER 90'S, PRODUCTIVE COUGH THICK CLEAR SPUTUM, ORALLY SUCTIONED. MONITOR SINUS TACH WITH PAC'S AND SHORT RUNS OF AFIB. BP ELEVATED AND HYDRALAZINE GIVEN, WITH DECREASE IN BP NOTED. WILL CONTINUE TO MONITOR. FERNANDO PATENT. PROGRESSING SLOWLY TOWARDS OUTCOME GOALS.
[2019-09-17] VITALS (26 sets, daily range): BP systolic 99–162; BP diastolic 49–79
--- NOTE | 2019-09-17 04:39 | NUR ---
COVID 19 SPUTUM SAMPLE COLLECTED AND DROPPED OFF IN LAB. ISOLATION PRECAUTIONS IN PLACE AND BEING FOLLOWED. FALL PRECAUTIONS ALSO IN PLACE. PT CALLED AND DISCUSSED PT STATUS.
--- NOTE | 2019-09-17 12:29 | NUR ---
ON-GOING ASSESSMENT: PT WAS EXTUBATED YESTERDAY AND IS CURRENTLY ON 4L OXYGEN. CM REVIEWED CHART AND SPOKE WITH ATTENDING. ATTENDING REPORTS PT WANTS TO CONTINUE WITH AGGRESSIVE TREATMENT FOR NOW. ST IS TO EVAL PATIENT ON IF PTS DIET CAN BE ADVANCED VS POSSIBLE NEED FOR PEG. WILL AWAIT ST EVAL. CM WILL CONTINUE TO FOLLOW TO ASSIST NEEDED.
--- NOTE | 2019-09-17 18:42 | NUR ---
PT IS CONTINUING O2 4L/MIN/NC TO KEEP O2SAT AT 97-100%, PT CAN ANSWER YES OR NO QUESTION, PT CAN FOLLOW SOME COMMANDS, BUT PT IS VERY WEAK AND NEEDS HELP ADL , ST HAS ASSESSED THE PT, PT HAS PO MEDICATIONS WITH SP AND RN MONITOR, ST WILL ASSESS PT TOMORROW , PT'S VS ARE STABLE , PT HAS STARTED IV FLIUD, RN HAS SENT COVID TEST TODAY PER ORDER, PT HAS POSITIVE COVID RESULT FROM YESTODAY SENDING , PT'S FAMILY HAVE UPDATED PT'S IMFORMATION.
[2019-09-18] VITALS (25 sets, daily range): BP systolic 96–145; BP diastolic 44–74
--- NOTE | 2019-09-18 03:59 | NUR ---
Assessment as documented.Pt been resting in no acute distress.A/O x1-2.pt responds appropraitely to simple questions.,yes/no,more awake as the night progresses aND responds more and even have a smile on his face while conversing with RN especially when notified that his family called and notified they are thinking of him and praying for him.O2 titrated from 4 liters to 3liters PNC by RT,maintaining spo2 of 100% most of the night with resp between 18-22.BAUTISTA with repositioning and turning.SR TO STACHY on monitor HR between 95-105 bpm. Intermittent low grade fever.page dd.iv fluids infusing as per orders.oral care provided.Denies pain.pt progressing towards goals fairly.Will cont to monitor per poc.
[2019-09-18 05:38] LABS: HEMATOCRIT 23.3 % (42.0-52.0); HEMOGLOBIN 7.6 gm/dL (14.0-18.0); MCH 30.5 pg (26.0-34.0); MCHC 32.7 g/dL (28.0-37.0); MCV 93.1 fL (80.0-100.0); RBC 2.51 mil/uL (4.50-6.00); RDW 16.4 % (10.5-14.5); WBC 10.1 thou/uL (4.0-11.0)
[2019-09-18 06:05] LABS: ALBUMIN 2.5 g/dL (3.4-5.0); CALCIUM 8.2 mg/dL (8.5-10.1); CREATININE 0.6 mg/dL (0.7-1.3); POTASSIUM 4.1 mmol/L (3.5-5.1); TOTAL BILIRUBIN 0.7 mg/dL (<0.1-1.0); TOTAL PROTEIN 5.7 g/dL (6.4-8.2)
--- NOTE | 2019-09-18 15:25 | NUR ---
ROMAINE reviewed chart and spoke with nursing and attending physician. Pt extubated and on O2 via NE. Therapy services are working with pt. Repeat COVID-19 test is negative. ROMAINE spoke with pt's step grandson, Eulalio, via phone to provide update and discuss post-acute plans. Pt's grandson states that he and pt's [employer] family are all so thankful for pt's progress. Eulalio states he would prefer pt stay at [facility] for inpt acute rehab. ROMAINE explained admission criteria for and need for insurance authorization. Eulalio verbalized understanding and will update Ney Mascorro and pt's nephew Mike. No weekend discharge planned. ROMAINE discussed case with social service liaison. physician or DISPATCHER TUGBOAT will evaluate pt on Saturday. ORMAINE is following to assist as needed with discharge planning.
--- NOTE | 2019-09-18 17:13 | NUR ---
Patient worked with pt/ot/st today. Diet advanced to pureed with honey thick. He requires feeding assistance as he is too weak to feed himself. He is sitting in bed positioning at this time. Bath given. Smear of a bowel movement noted with bath. He answers questions, however, not sure of all answers. He is very polite. Oxygen is at 2l per nasal cannula with o2 saturations >92%. He denies shortness of air. No desaturation noted with turns/movements. Patient slowly progressing towards plan of care as evidenced by increasing activity tolerance and decrease oxygen needs.
[2019-09-19] VITALS (27 sets, daily range): BP systolic 105–140; BP diastolic 51–78
[2019-09-19 09:57] LABS: URINE BILIRUBIN NEGATIVE (Negative); URINE BLOOD 1+ (Negative); URINE COLOR YELLOW; URINE GLUCOSE-RANDOM* NEGATIVE (Negative); URINE KETONES NEGATIVE (Negative); URINE NITRITE-REFLEX NEGATIVE (Negative); URINE PROTEIN (DIPSTICK) TRACE (Negative); URINE SPECIFIC GRAVITY 1.025 (1.005-1.035); URINE UROBILINOGEN 0.2 E.U./dl (0.2-1.0)
[2019-09-19 09:59] LABS: URINE CLARITY SL HAZY; URINE LEUKOCYTES-REFLEX 2+ (Negative)
[2019-09-19 10:15] LABS: URINE WBC-REFLEX >25 Many /HPF (0-5)
[2019-09-19 10:16] LABS: YEAST-REFLEX Present (None Seen)
[2019-09-19 10:17] LABS: URIC ACID CRYSTALS 0-3 Few /LPF (None Seen)
[2019-09-19 10:18] LABS: BACTERIA-REFLEX None Seen /HPF (None Seen); CASTS None Seen /LPF (None Seen); SQUAMOUS None Seen /LPF (0-3); URINE RBC 0-2 Rare /HPF (0-2)
--- NOTE | 2019-09-19 14:23 | NUR ---
UPDATE GIVEN TO TERESA, WHO CALLED IN TO CHECK ON PT. TRUDI D/W HIM, LISTENING TO CONCERNS. ?'S ASKED, ANSWERED. MUCH REASSURANCE & SUPPORT GIVEN. WILL TRY FOR A ZOOM CONFERENCE THIS EVENING DURING THE PRAYER TIME FOR THE [employer] SO ARIAS CAN PARTICIPATE.--VW
--- NOTE | 2019-09-19 18:16 | NUR ---
ASSUMED CARE OF PT AT SHIFT CHANGE. QUIET, ALERT TO SELF, BDATE, FACT HE'S IN HOSPITAL, BUT DOESN'T KNOW NAME OF HOSPITAL, THOUGH KAROLINA WAS PRESIDENT "HE'S SAME COLOR ME". SEE SEPARATE INTERVENTIONS FOR ASSESSMENTS. 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 LIKES LIGHTS OFF, GOES BETWEEN MUSIC AND TELEVISION. IS A ARIAS WITH A [place]UE AND WAS ABLE TO FACE TIME W/FAMILY AND FRIENDS FOR ABOUT TEN MINUTES. HE CAME UP WITH ALL KINDS OF QUIPS FOR THEM, THEN FELL ASLEEP. ONE VERY LARGE BOWEL MOVEMENT, SCROTUM SWOLLEN. TURNS Q2H. WILL CONTINUE TO MONITOR, IMPORTANT TO NOTE HE EATS VERY SLOWLY BUT WILL CONSUME MOST OF THE FOOD AND THICKENED LIQUID/SUPPLEMENTS IF GIVEN THE TIME
[2019-09-20] VITALS (27 sets, daily range): BP systolic 105–145; BP diastolic 52–73
--- NOTE | 2019-09-20 06:20 | NUR ---
PATIENT DENIED PAIN THIS SHIFT. PATIENT CONTINUES WITH PPN VIA RIGHT TRIPLE LUMEN PICC. REMAINS ON 2L O2 VIA NC. NO ISSUES OR NEEDS NOTED AT THIS TIME. SEE VITALS AND ASSESSMENT FOR MORE INFO.
[2019-09-20 13:19] LABS: ABSOLUTE NEUTROPHILS 6.9 thou/uL (1.4-8.2); BASOPHILS 0.8 % (0.0-2.0); EOSINOPHILS 2.9 % (0.0-3.0); HEMATOCRIT 23.6 % (42.0-52.0); HEMOGLOBIN 7.7 gm/dL (14.0-18.0); LYMPHOCYTES 6.7 % (24.0-44.0); MCH 30.4 pg (26.0-34.0); MCHC 32.6 g/dL (28.0-37.0); MCV 93.2 fL (80.0-100.0); MONOCYTES 6.2 % (1.0-8.0); PLATELET COUNT 139 thou/uL (150-400); POLYS 83.4 % (36.0-66.0); RBC 2.53 mil/uL (4.50-6.00); RDW 16.2 % (10.5-14.5); WBC 8.3 thou/uL (4.0-11.0)
[2019-09-20 13:37] LABS: ALBUMIN 2.5 g/dL (3.4-5.0); CALCIUM 8.7 mg/dL (8.5-10.1); CREATININE 0.7 mg/dL (0.7-1.3); POTASSIUM 4.2 mmol/L (3.5-5.1); TOTAL BILIRUBIN 0.4 mg/dL (<0.1-1.0); TOTAL PROTEIN 6.2 g/dL (6.4-8.2)
[2019-09-20 15:52] LABS: HEMOGLOBIN 6.9 gm/dL (14.0-18.0); RDW 16.9 % (10.5-14.5)
[2019-09-20 15:53] LABS: HEMATOCRIT 21.2 % (42.0-52.0); MCH 30.4 pg (26.0-34.0); MCHC 32.8 g/dL (28.0-37.0); MCV 92.8 fL (80.0-100.0); RBC 2.29 mil/uL (4.50-6.00); WBC 8.4 thou/uL (4.0-11.0)
[2019-09-20 15:57] LABS: BE(vivo) 3.7 mmol/L (-2 to +3); HCO3 28.1 mmol/L (22.0-26.0); PCO2 41.9 mmHg (35.0-45.0); PO2 138.9 mmHg (80.0-100.0); pH 7.445 (7.360-7.450); sO2 98.9 % (92.0-98.0)
[2019-09-20 16:08] LABS: CREATININE 0.8 mg/dL (0.7-1.3); POTASSIUM 4.1 mmol/L (3.5-5.1)
--- NOTE | 2019-09-20 19:34 | NUR ---
LABORATORY CALLED AT 1855, PATIENT TEST RESULT COVID POSITIVE. SPOKE TO TABATHA SMITH [address] DAVIS AT 1930, DR. DAVIS UPDATED ON PATIENT'S STATUS, DR. DAVIS WOULD LIKE PATIENT TO BE MOVED TO A NEGATIVE PRESSURE ROOM, NEW ORDERS NOTED.
--- NOTE | 2019-09-20 19:41 | NUR ---
SPOKE WITH PATIENT'S GRANDSON CYNTHIA EDU AND UPDATED ON PATIENT'S STATUS.
--- NOTE | 2019-09-20 19:43 | NUR ---
ASSESSMENTS AND INTERVENTIONS DOCCUMENTED. PATIENT TRANSFERRED TO . PATIENT RETURNED TO UNIT WITH TACHYPENIA. PATIENT SETTLED INTO ROOM ON BIPAP. PATIENT HYPOTENSIVE DR. DAVIS PAGED AND FLUID BOLUS GIVEN SON CAME TO THE UNIT PER DR. DAVIS AND SAW HIS GRANDFATHER. PATIENT TOLERATING 4L NC. PATIENT STABLE AT THIS TIME HYPOTENSIVE HAS RESOLVED.
[2019-09-21] VITALS (31 sets, daily range): BP systolic 99–142; BP diastolic 49–77
[2019-09-21 05:11] LABS: HEMATOCRIT 22.4 % (42.0-52.0); HEMOGLOBIN 7.3 gm/dL (14.0-18.0); MCH 30.4 pg (26.0-34.0); MCHC 32.7 g/dL (28.0-37.0); MCV 93.1 fL (80.0-100.0); RBC 2.41 mil/uL (4.50-6.00); RDW 17.1 % (10.5-14.5); WBC 9.1 thou/uL (4.0-11.0)
[2019-09-21 05:20] LABS: CALCIUM 8.4 mg/dL (8.5-10.1); CREATININE 0.7 mg/dL (0.7-1.3); POTASSIUM 4.6 mmol/L (3.5-5.1)
--- NOTE | 2019-09-21 07:53 | NUR ---
PATIENT TRANSFERRED TO 3W, TRANSFERRED BACK TO ICU D/T TACHYPENIA. WILL NEED NEW ORDERS FOR OT D/T CHANGE IN MEDICAL STATUS. THANK YOU.
--- NOTE | 2019-09-21 08:01 | NUR ---
Pt TRANSFERRED TO 3W AND THEN BACK TO ICU FOR TACHYPNEA. WILL NEED NEW ORDERS FOR PT TO CONTINUE PT INTERVENTIONS ONCE Pt MEDICALLY STABLE TO PARTICIPATE D/T TRANSFER BACK TO HIGHER LEVEL OF CARE.
--- NOTE | 2019-09-21 08:03 | NUR ---
PATIENT ALERT TO SELF AND SITUATION, CONFUSED TO TIME AND PLACE. PATIENT PLACED ON BIPAP AT 2330. PLACED ON 35% VENTI MASK AT 0410, AND THEN 28% SATURNINO MASK AT 0600. PATIENT O2 SAT REMAINED ABOVE 90%, FERNANDO PATENT WITH GREATER THAN 30ML/HR. SINUS RHYTHM WITH PAC ON MONITOR. PATIENT EDUCATED ON COVID STATUS. TRANSFERRED TO NEGATIVE PRESSURE ROOM AT 233O PER DR. DAVIS ORDERS. NO SIGN OF ACUTE DISTRESS NOTED AT THIS TIME. WILL CONTINUE TO MONITOR.
--- NOTE | 2019-09-21 16:00 | NUR ---
PT ORIENTED TO PERSON AND PLACE, CONFUSED ABOUT TIME. PT AND FAMILY UPDATED AND EDUCATED MULTIPLE TIMES DURING SHIFT. OXYGEN DELIVERY SYSTEM TITRATED TO A HIGH-FLOW NC AT 5L/MIN, PT SATURATIONS CONSISTANTLY ABOVE 95%. BIPAP PRN AT BEDSIDE. SUPRA-PUBIC CATHETER IN PLACE WITH > 30ML/HR OUTPUT.
--- NOTE | 2019-09-21 17:28 | NUR ---
ROMAINE reviewed chart and spoke with attending physician. Pt was moved out of ICU to 3W briefly and then returned to ICU. Pt remains on bipap. Therapy services on hold at this time. 5N consult ordered to evaluate pt after therapy evaluations are completed. Pt had negative COVID-19 test on 09/16 and repeat on 09/19 was positive. Pt's grandson visited pt yesterday. ROMAINE received call from pt's nephew, Mike, requesting update and to add additional contacts for pt. Per Mike, pt's step grandson is not communicating all info to pt's family. Mike is aware of pt's current condition and is agreeable with pt going to 5N if pt qualifies and insurance approves. ROMAINE received call from pt's family friend, Ney Mascorro. Per Ney, pt was able to communicate who he would want involved in his care, when Eulalio visited. ROMAINE explained that if pt has the capacity to appoint a DPOA, a healthcare DPOA can be completed while at [facility]. Ney verbalized understanding. ROMAINE to discuss with Director of Case Mgmt and attending physician. ROMAINE is following to assist as needed with discharge planning.
--- NOTE | 2019-09-21 21:40 | NUR ---
PT AUTHORIZED CONTACT TERESA HANSEN CALLED AT HS FOR UPDATE ON THE PT. SPOKE WITH THIS NURSE. UPDATED ON THE PT AND APPRECIATIVE OF THE CARE FOR THE PT .
[2019-09-22] VITALS (47 sets, daily range): BP systolic 88–139; BP diastolic 29–77
[2019-09-22 05:34] LABS: HEMOGLOBIN 6.9 gm/dL (14.0-18.0)
[2019-09-22 05:38] LABS: HEMATOCRIT 21.4 % (42.0-52.0); MCH 30.3 pg (26.0-34.0); MCHC 32.5 g/dL (28.0-37.0); MCV 93.2 fL (80.0-100.0); RBC 2.29 mil/uL (4.50-6.00); RDW 17.8 % (10.5-14.5); WBC 10.1 thou/uL (4.0-11.0)
[2019-09-22 05:51] LABS: CALCIUM 8.7 mg/dL (8.5-10.1); CREATININE 0.7 mg/dL (0.7-1.3)
--- NOTE | 2019-09-22 05:51 | NUR ---
SPOKE WITH DANIEL OTOOLE AND GAVE HER AN UPDATE ON PATIENT'S NIGHT.
--- NOTE | 2019-09-22 06:38 | NUR ---
PT A&O X3-4 ABLE TO ANSWER TO SOME BASIC QUESTIONS. DENIES PAIN BUT C/O OF BLE PAIN WHEN BEING TURNED. PT HAD A 2 LARGE BMs LAST NITE. OXYGEN PER HIGH FLOW NC DECREASED FROM 4L TO 3L OVERNIGHT. PPN @80CC/HR. VSS. AFEBRILE. SP CATH DRAINS WITHOUT DIFFICULTIES.OCCULT STOOL SAMPLE COLLECTED RESULTS PENDING AT THIS TIME. ACCHU CHECKS Q6H BS ELEVATED.
--- NOTE | 2019-09-22 12:30 | NUR ---
PT STATED " DO NOT GIVE ANY INFORMATION TO AZAM MY NEPHEW.
--- NOTE | 2019-09-22 14:48 | NUR ---
SW reviewed chart and spoke with nursing and attending physician. Pt remains on bipap. 5N is following for possible admission to inpt acute rehab. Therapy services on hold due to recent positive repeat COVID-19 test. Consult for psych to evaluate pt ordered today to determine if pt has capacity to appoint a DPOA. Pt has orders to transfer out of ICU to 3W. ROMAINE spoke with pt's friend, Ney Mascorro, via phone to provide update and notify of room move and contact info for 3W. Provided clinical update. Pt's methodist community would like to do zoom call for prayer service. SW is following to assist as needed with discharge planning.
--- NOTE | 2019-09-22 19:57 | NUR ---
PT HAS A VERY GOOD APPETITE...HE NEEDS EXTRA TIME TO EAT AND IS A FEED...HONEY THICK FLUIDS AND PUREED ADA DIET...
--- NOTE | 2019-09-22 22:04 | NUR ---
RESTING QUIETLY. VERY TALKATIVE. STATING HE WAS READY TO GO BUT HAD A LONG TALK WITH GOD AND NOW WILL STAY. PATIENT KNOWS PERSON, PLACE AND SITUATION. UNAWARE OF DATE AND TIME. REORIENT NEEDED. REPORT CALLED TO 3W RN TO TRANSFER TO [facility]. REMAIN IN ISOLATION. SPOKE WITH TERESA FRIEND AND WILL TRY TO ZOOM TOMORROW. WORKING ON GOALS AND PLAN OF CARE FOR NOC. CONTINUE TO ASSES CLOSELY.
--- NOTE | 2019-09-22 22:59 | NUR ---
TX PER BED WITH FACE MASK ON PATIENT TO 349. REPORT COMPLETED TO 3W RN. ALL BELONGINGS INCLUDING DENTURES AND IPAD SENT WITH PATIENT.
--- NOTE | 2019-09-22 23:40 | NUR ---
PT TRANSFERED FROM ICU. OX2. EDEMA BLE AND RFA. SUPERFICIAL CLOT RARM, CONTINUED PICC USE PER ORDERS. 02 PER 2L. LUNGS WHEEZES, DRY COUGH. MOD ASSIST FOR REPOSITIONING. PRAFO BOOTS ON. SUPRAPUBIC CATHETER INTACT. PPN INTACT. PLEASANT CALM, THANKING STAFF FOR CARES. 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 BED ALARM ON.
[2019-09-23 04:29] VITALS: BP 140/98
[2019-09-23 04:54] VITALS: BP 136/84
[2019-09-23 08:00] VITALS: BP 132/79
--- NOTE | 2019-09-23 10:30 | NUR ---
PATIENT REQUESTED THIS NURSE CALL TERESA TO DISCUSS CODE STATUS. PATIENT ASKED REGGIE TO HELP DECIDE PATIENTS CODE STATUS..PT REPORTED TO THIS NURSE THAT HE WANTS EVERYTHING DONE TO SAVE HIS LIFE.
--- NOTE | 2019-09-23 11:31 | NUR ---
Nutrition: REC D/C PPN due to excellent oral intake, 75-100% of meals and supplements. Hyperglycemia and weight gain also noted which may indicate s/s overfeeding.
--- NOTE | 2019-09-23 11:32 | NUR ---
SW reviewed chart and spoke with nursing and attending physician. Pt was transferred to from ICU yesterday. Pt remains in Enhanced Isolation due to recent positive COVID-19 test. Therapy orders entered today. 5N is following. Psych consult ordered yesterday and is pending. SW is following to assist as needed with discharge planning.
[2019-09-23 12:30] VITALS: BP 118/69
[2019-09-23 16:40] VITALS: BP 123/66
--- NOTE | 2019-09-23 16:58 | NUR ---
PATIENT ADMIT TO UNIT FROM 5S AT 1430. ALERT, DROWSY, ABLE TO FOLLOW SIMPLE COMMAND. REFUSED TO EAT. INCONTINUE URINE. DENIES PAIN, V PACED ON MONITOR. AFEBRILE, VSS. WAITTING FOR COVID RESULT. WILL KEEP MONITOR.
--- NOTE | 2019-09-23 17:30 | NUR ---
PT STATED HE DOES WANT ANY INFORMATION GIVEN TO HIS NEPHEW AZAM BECAUSE HE IS A "RADICAL" AND DOES NOT LISTEN TO HIS WISHES. HE ALSO SUSPECTS THAT HIS NEPHEW TOOK MONEY FROM HIS CHECKING ACCOUNT AND WAS TEARFUL WHEN STATING THIS. WITNESSED BY MYSELF AND CYNTHIA DO.
[2019-09-23 19:45] VITALS: BP 114/56
[2019-09-23 21:00] LABS: HEMATOCRIT 21.7 % (42.0-52.0); HEMOGLOBIN 7.1 gm/dL (14.0-18.0)
[2019-09-24] VITALS (8 sets, daily range): BP systolic 107–153; BP diastolic 54–81
[2019-09-24 06:22] LABS: ABSOLUTE NEUTROPHILS 9.1 thou/uL (1.4-8.2); BASOPHILS 0.5 % (0.0-2.0); EOSINOPHILS 0.3 % (0.0-3.0); HEMATOCRIT 22.4 % (42.0-52.0); HEMOGLOBIN 7.3 gm/dL (14.0-18.0); LYMPHOCYTES 5.9 % (24.0-44.0); MCH 30.5 pg (26.0-34.0); MCHC 32.6 g/dL (28.0-37.0); MCV 93.7 fL (80.0-100.0); PLATELET COUNT 158 thou/uL (150-400); POLYS 86.3 % (36.0-66.0); RBC 2.39 mil/uL (4.50-6.00); WBC 10.6 thou/uL (4.0-11.0)
--- NOTE | 2019-09-24 06:27 | NUR ---
Assumed pt at 1900. Pt's alert to person,place and situation,able to make needs known. Denies pain on assessment but grimaces when moved. VSS. Pt's max assist with ADL's,incontinent of bowels this morning. Supra-pubic catheter patent draining yellow urine. Edema persists on BUE,elevated on pillows. PICC line on RUE patent and flushing okay. Bed bath completed this morning with no new skin issues noted. Pt informed this commercial loan underwriter of henrietta Pearl [phone] as the person who's recently taking Mahendra's role(not so sure about the number tried to call no answer). Mahendra called last evening informed him pt doesn't want us to share information with him and he sounded surprised pt said so and was adamant about it. Calls made to Eulalio/Ney this morning per pt request. Fall precautions in place. Enhanced isolation maintained.
[2019-09-24 06:35] LABS: ALBUMIN 2.4 g/dL (3.4-5.0); CALCIUM 8.4 mg/dL (8.5-10.1); CREATININE 0.7 mg/dL (0.7-1.3); POTASSIUM 3.9 mmol/L (3.5-5.1); TOTAL BILIRUBIN 0.3 mg/dL (<0.1-1.0); TOTAL PROTEIN 6.1 g/dL (6.4-8.2)
--- NOTE | 2019-09-24 15:26 | NUR ---
ROMAINE reviewed chart and spoke with nursing and attending physician. Pt was unable to participate with sruthi fletcher yesterday. Pt has required more O2 today. Pt did work with PT and ST earlier today. Pt is on a pureed diet and honey thick liquids. ROMAINE spoke with pt's friend, Ney Mascorro. Update provided. Pt had stated to nursing that his friend, Kristel Pearl, should be included in his contacts, as she is a trusted friend. SW confirmed this with Ney. Kristel works for pt's [employer]. Ney states that he has been updating pt's PCP, Dr. Marjorie Melo. She is available to answer any questions should physicians need info on pt's care prior to admission. This info provided to attending physician. ROMAINE is following to assist as needed with discharge planning.
--- NOTE | 2019-09-24 16:47 | NUR ---
PT IS A&OX2 ( PERSON AND PLACE), PT IS FORGETFUL , PT IS CONTINUING O2 2-4L/MIN/NC, RN HAS CALLED DR TO REPORT PT'S SOB AND ABNORMAL CHEST R-RAY RESULT ( PROGRESSION OF BILATERAL PULMONARY INFILTRATES), NEW ORDER LASIX 40MG IV ONE TIME, PT'S SOB HAS SOME IMPROVED BY THIS TIME, PT NEEDS HELP MEALS AND ADL, PT DENIES PAIN AT THIS TIME.
--- NOTE | 2019-09-24 19:39 | NUR ---
PT CONFUSED. 99.2 T 865 ON 3 LNC. 94-95 ON 4 LNC. BREATHS SOUNDS CORASE SLIGHTLY TACHPNEIC. PRODUCTIVE COUGH NOTED SLIGHTLY BLOOD TINGED YELLOW GREEN. RESP TX GIVEN. WILL CONTINUE TO MONITOR PT FOR CHANGES,
[2019-09-25 05:16] VITALS: BP 137/86
[2019-09-25 06:09] LABS: ABSOLUTE NEUTROPHILS 7.3 thou/uL (1.4-8.2); BASOPHILS 0.5 % (0.0-2.0); EOSINOPHILS 0.9 % (0.0-3.0); HEMATOCRIT 21.8 % (42.0-52.0); HEMOGLOBIN 7.2 gm/dL (14.0-18.0); LYMPHOCYTES 6.4 % (24.0-44.0); MCH 30.6 pg (26.0-34.0); MCHC 32.8 g/dL (28.0-37.0); MCV 93.2 fL (80.0-100.0); MONOCYTES 9.6 % (1.0-8.0); POLYS 82.6 % (36.0-66.0); RBC 2.34 mil/uL (4.50-6.00); WBC 8.8 thou/uL (4.0-11.0)
--- NOTE | 2019-09-25 06:18 | NUR ---
Pt alert and oriented to self. Pleasantly confused to place and time. Forgetful. VSS. 99T. Sat 98 % on 6LNC. Decreased o2 to 5LNC. Rt was notified of o2 titration tonight. Lungs sound coarse. RR 24. S/p catheter had 650 out this am. No c/o pain. No blood tinged sputum noted this am. No cough noted this am. No other s/s bleeding noted this am. He has been sleeping quietly without complaints. Blood sent to lab per lab lady after I javy the blood at 0530. Bed down call light in reach.Bed alarm is on.
[2019-09-25 06:39] LABS: CALCIUM 8.3 mg/dL (8.5-10.1); CREATININE 0.7 mg/dL (0.7-1.3); MAGNESIUM 2.1 mg/dL (1.8-2.4); POTASSIUM 3.3 mmol/L (3.5-5.1)
[2019-09-25 07:36] LABS: PLATELET COUNT 153 thou/uL (150-400)
[2019-09-25 08:38] VITALS: BP 153/82
[2019-09-25 10:27] LABS: ANISOCYTOSIS 2+
--- NOTE | 2019-09-25 14:05 | NUR ---
ROMAINE reviewed chart and spoke with nursing and attending physician. Pt remains in Enhanced Isolation. Repeat COVID-19 test is pending. Pt is afebrile on 4L of O2. Psych evaluated pt and states pt does have capacity to appoint a DPOA for healthcare decisions. SW left voice message for spiritual care to request completion of DPOA document. Spiritual care has already left for the day. ROMAINE spoke with pt's friend, Ney Mascorro to provide update. Today is pt's 89th birthday. Pt continues to work with therapy. No weekend discharge planned. ROMAINE is following to assist as needed with discharge planning.
--- NOTE | 2019-09-25 14:52 | NUR ---
5N CONSULT RECEIVED FOR THIS Pt. Pt CONTINUES TO TEST POSITIVE FOR COVID. Pt WORKING WITH THERAPIES. Pt WOULD NEED TWO NEGATIVE COVID TESTS PRIOR TO TRANSFERRING UP TO 5N REHAB UNIT. UNSURE OF Pt'S TOLERANCE FOR 3 HOURS/DAY OF THERAPY AT THIS TIME. WILL CONTINUE TO FOLLOW Pt.
--- NOTE | 2019-09-25 16:05 | NUR ---
ASSUMED CARE OF PT AT 0700. PT AOX2-3 IN NO ACUTE DISTRESS. BILAT UPPER EXT EDEMATOUS. BREATHING COMFORTABLY ON 4L - DENIES SOA. VITALS STABLE. APPETITE SHOWING IMPROVEMENT. FACETIME'D WITH FAMILY VIA IPAD. WORKED WITH PT/OT. REMAINS VERY WEAK. BLOOD SUGAR WELL CONTROLLED. SLOW PROGRESS TOWARD POC GOALS.
[2019-09-25 16:52] VITALS: BP 160/89
[2019-09-25 21:04] VITALS: BP 150/79
--- NOTE | 2019-09-25 23:35 | NUR ---
PT ALERT AND ORIENTED X PERSON AND PLACE. BP MODERATELY ELEVATED. AFEBRILE. SAT 93-[address] HR IR[address] WITH PACS AND PVCS. LUNGS HAVE FINE CRACKLED LLL. RR28. NO COUGH NOTED. HS SNACK GIVEN. NO C/O PAIN. BED CHANGED BATH COMPLETED. MOISTURE BARRIER TO BUTTOCKS. NO OPEN AREAS NOTED. NO S/S DISTRESS PRESENTLY. WILL CONTINUE TO MONITOR.
[2019-09-26 00:18] VITALS: BP 136/82
[2019-09-26 04:00] VITALS: BP 129/75
--- NOTE | 2019-09-26 04:40 | NUR ---
Pt progressing slowly towards d/c goals. This am VSS. o2sats WNL on 3LNC. SR on monitor with PACS. Nonproductive cough noted. crackles at bases noted. No bleeding noted. Denied SOA or pain. Suprapubic catheter had 2650 out clear yellow urine. Inc of stool x2. Moisture barrier applied. Scds on prevalon boots on. Tolerated ensure and thickened tea well. Will continue to monitor pt for changes.
[2019-09-26 07:49] VITALS: BP 137/74
[2019-09-26 17:53] VITALS: BP 149/79
--- NOTE | 2019-09-26 18:38 | NUR ---
ASSUMED CARE OF PT AT 0700. IMPROVED MENTATION. IMPROVED APPETITE. REMAINS VERY WEAK, REQUIRING ASSISTANCE WITH MEALS. EATING NEARLY ALL OF MEALS. INCONTINENT OF STOOL. BM X1 TODAY. ADEQUATE URINE OUTPUT. VITALS STABLE. PT PROGRESSING TOWARD POC GOALS.
[2019-09-26 21:47] VITALS: BP 135/70
[2019-09-27 08:16] VITALS: BP 139/81
--- NOTE | 2019-09-27 16:46 | NUR ---
Pt afebrile, RA & VSS, OK to move & DC isolation per Cady (Infection control)
[2019-09-27 17:40] VITALS: BP 141/66
--- NOTE | 2019-09-27 17:44 | NUR ---
ASSUMED CARE OF PT AT 0700. PT AOX3 MILD CONFUSION AT TIMES. IMPROVING APPETITE. REMAINS VERY WEAK. VITALS STABLE, AFEBRILE. REQUIRES FEEDING. PT VOICING NO CONCERNS AT THIS TIME. SLOW PROGRESS TOWARD POC GOALS.
[2019-09-27 21:00] VITALS: BP 115/83
[2019-09-28 07:27] VITALS: BP 146/79
[2019-09-28 13:40] VITALS: BP 124/61
[2019-09-28 13:46] LABS: ABSOLUTE NEUTROPHILS 5.1 thou/uL (1.4-8.2); BASOPHILS 0.3 % (0.0-2.0); EOSINOPHILS 3.4 % (0.0-3.0); HEMATOCRIT 23.7 % (42.0-52.0); HEMOGLOBIN 7.8 gm/dL (14.0-18.0); LYMPHOCYTES 7.6 % (24.0-44.0); MCH 30.7 pg (26.0-34.0); MCHC 32.9 g/dL (28.0-37.0); MCV 93.4 fL (80.0-100.0); MONOCYTES 4.5 % (1.0-8.0); POLYS 84.2 % (36.0-66.0); RBC 2.53 mil/uL (4.50-6.00); RDW 18.4 % (10.5-14.5)
[2019-09-28 13:58] LABS: CALCIUM 8.1 mg/dL (8.5-10.1); CREATININE 0.7 mg/dL (0.7-1.3); POTASSIUM 3.3 mmol/L (3.5-5.1)
[2019-09-28 14:31] LABS: ANISOCYTOSIS 1+; PLATELET COUNT 137 thou/uL (150-400); PLATELET ESTIMATE NORMAL
[2019-09-28 15:52] VITALS: BP 121/61
--- NOTE | 2019-09-28 17:12 | NUR ---
SW reviewed chart and spoke with nursing and attending physician. Pt's repeat COVID-19 test was positive. Pt remains in Enhanced Isolation and is able to work with therapy. SW received call from pt's friend, Ney Mascorro. SW provided update to Ney. SW is following to assist as needed with discharge planning.
--- NOTE | 2019-09-28 19:21 | NUR ---
PT REMAINS VERY WEAK...PT AND OT DID WORK WITH PATIENT TODAY BUT THEY ARE LIMITED TO 15 MIN RE POSITIVE COVID STATUS...PT REPORTS PATIENT STOOD X 2 BRIEFLY...WILL MONITOR
[2019-09-28 19:30] VITALS: BP 113/73
[2019-09-29 04:15] VITALS: BP 155/88
--- NOTE | 2019-09-29 04:47 | NUR ---
ASUMED CARE OF PT 1900HRS. PT IS AOX4 BUT EXREMEL WEAK. FALL PRECAUTION IN PLACE. PT TURNED Q2H. O2 CONTINUED VIA NC AT 2L. SUPRAPUBIC CATH IN PLACE AND IS PATIENT. PT WAS SR ON THE TELE WITH SOME ST READING. PT IS A TOTAL CARE AND NEEDS TO BE FED. PT WAS ABLE TO GET COMFORTABLE AND SLEEP PART OF THE SHIFT. VSS AND NO S/S OF ACUTE DISTRESS. WILL CONTINUE TO MONITOR.
[2019-09-29 07:27] VITALS: BP 129/78
--- NOTE | 2019-09-29 16:15 | NUR ---
SW reviewed chart and spoke with nursing and attending physician. Pt in Enhanced Isolation due to being positive for COVID-19. Therapy services continues to work with pt. 5N is following pt to see if pt would meet admission criteria for inpt acute rehab. SW is following to assist as needed with discharge planning.
[2019-09-29 20:00] VITALS: BP 129/77
[2019-09-30 00:16] VITALS: BP 130/79
[2019-09-30 05:07] VITALS: BP 126/68
--- NOTE | 2019-09-30 06:44 | NUR ---
PROGRESS PT A/O X4 VSS. LUNGS DIMINISHED AND NO COUGH NOTED. REPOSITIONED Q2HRS AND HEELS FLOATED, SCD'S REPOSITIONED THE TUBING WAS PRESSING AGAINST HIS RIGHT ANKLE THREADED THROUGH PROFO BOOT WITH EFFECT. PT TOLERATING NECTAR THICK LIQUIDS. SUPRA-PUBIC CATHETER IN PLACE DRAINING DARK YELLOW URINE. PICC LINE WITH TRIPLE LUMEN TO ABNER INTACT GOOD BLOOD RETURN TO ALL PORTS, AND FLUSHES WITHOUT DIFFICULTY. WOUND TO LEFT FOREARM MUNA AND ABOUT NICKEL SIZED SCABBED OVER WITH NO DRAINAGE NOTED. ACCUCHECKS WITH SSI CONTINUE, RT TX'S AND O2 VIA NC AT 3 LITERS, REPORTED PAIN AND STIFFNESS THIS AM AND A PAIN RATING OF 3 TO 4, 650 MG AWAITING EFFECT. TYLENOL GIVEN
[2019-09-30 08:42] VITALS: BP 123/59
--- NOTE | 2019-09-30 16:14 | NUR ---
ROMAINE reviewed chart and spoke with nursing and attending physician. Pt remains in Enhanced Isolation due to repeat positive COVID-19 test. Case discussed with risk mgmt, director of case mgmt and admitting. Risk mgmt contacted pt yesterday and pt states he wants three people to be listed as his contacts: Ney Mascorro, Eulalio Vera and Dr. Kristel Pearl. Pt to be made a confidential pt and new security code established. Others will not be able to contact pt directly or obtain info regarding pt's care. ROMAINE spoke with Ney Mascorro to provide update. Ney states that pt has told him that he has multiple lengthy phone calls throughout the day and that he sometimes will not eat his meals, as he is fatigued. SW discussed post-acute plans with Ney: 5N v. SNF. SW discussed qualifications for admission for inpt acute rehab and need for insurance auth. Unsure if pt will be able to tolerate hours of therapy needed. SW provided names of SNFs: [facility] and [facility] who are able to accept active COVID-19 positive pts. Preference is for pt to remain at [facility] for inpt acute rehab if possible. ROMAINE left voice message for Dr. Pearl to provide update. SW is following to assist as needed with discharge planning.
[2019-09-30 17:30] VITALS: BP 126/73
--- NOTE | 2019-09-30 19:15 | NUR ---
PT WORKED WITH PT/OT TODAY...SAT IN CHAIR X 1 HOUR...BEGAN WORKING ON FEEDING HIMSELF AT BREAKFAST BUT WAS MUCH TOO EXHAUSTED TO ATTEMPT FEEDING SELF LUNCH OR DINNER OR EVEN ATTEMPT HOLDING SILVERWARE OR CUP...
[2019-09-30 21:08] VITALS: BP 133/74
[2019-10-01 06:06] VITALS: BP 129/71
[2019-10-01 06:15] LABS: HEMATOCRIT 22.4 % (42.0-52.0); HEMOGLOBIN 7.2 gm/dL (14.0-18.0); MCH 30.6 pg (26.0-34.0); MCHC 32.4 g/dL (28.0-37.0); MCV 94.5 fL (80.0-100.0); RBC 2.37 mil/uL (4.50-6.00); RDW 18.4 % (10.5-14.5); WBC 4.8 thou/uL (4.0-11.0)
--- NOTE | 2019-10-01 06:20 | NUR ---
VSS OVERNIGHT, TELE SHOW PT RUNNING 100-110 WITH PACS. PT SLOWLY MOVING TOWARDS GOALS FOR REHAB. PT CAN NOW LIFT LEFT ARM AND MOVE IT AROUND. CENTRAL LINE DRESSING AND CAPS CHANGED ON PICC, LINES FLASH AND DRAW FINE. PT HAD ONE BM OVERNIGHT. TWO SMALL WOUNDS ON SACRAL OPEN AND BLEEDING, USING WEDGES TO ROTATE. PLACED BARRIER CREAM ON WOUNDS.
[2019-10-01 06:26] LABS: CALCIUM 7.8 mg/dL (8.5-10.1); CREATININE 0.6 mg/dL (0.7-1.3)
[2019-10-01 07:11] VITALS: BP 133/64
--- NOTE | 2019-10-01 13:03 | NUR ---
SPOKE WITH DR SELENE YU REGARDING RESWABBING PATIENT FOR COVID...HE PLACED AN ORDER TO RESWAB PATIENT FOR COVID TOMORROW 10/01...
--- NOTE | 2019-10-01 13:25 | NUR ---
ROMAINE reviewed chart and spoke with nursing and attending physician. Pt remains in Enhanced Isolation. Pt will have repeat COVID test. Pt with low grade fever. Discussed case with therapy/5N. 5N is following to determine if pt will qualify for inpt acute rehab. Will need insurance authorization. ROMAINE received call from pt's friend, Dr. Kristel Pearl. ROMAINE provided update to Dr. Pearl, who has known pt for many years. Dr. Pearl states that the goal is for pt to return to his home after rehab. Awaiting repeat COVID test at this time. ROMAINE is following to assist as needed with discharge planning.
[2019-10-01 17:33] VITALS: BP 132/73
[2019-10-01 22:14] VITALS: BP 129/75
[2019-10-02 06:00] VITALS: BP 136/73
[2019-10-02 06:57] LABS: CALCIUM 7.6 mg/dL (8.5-10.1); CREATININE 0.6 mg/dL (0.7-1.3); POTASSIUM 3.5 mmol/L (3.5-5.1)
[2019-10-02 09:21] VITALS: BP 121/69
--- NOTE | 2019-10-02 12:26 | NUR ---
SW reviewed chart and spoke with nursing and attending physician. Repeat COVID-19 test ordered today. Pt is on 2L of O2. Therapy continues to work with pt. Pt is now on pureed diet and nectar thick liquids. ROMAINE spoke with pt's friend, Ney Ludwin, via phone to provide update. No weekend discharge planned. 5N is following for possible admission to in acute rehab. SW is following to assist as needed with discharge planning.
[2019-10-02 14:17] VITALS: BP 117/78
[2019-10-02 14:21] VITALS: BP 109/81
[2019-10-02 17:24] VITALS: BP 124/81
--- NOTE | 2019-10-02 18:19 | NUR ---
ASSUMED PATIENT CARE AT 0700. A/O X3. COVID STILL POSITIVE. VSS. GENERLIZED WEAKNESS. BUE EDEMA. PATIENT NOT ABLE TO FEED HIM SELF. MAX ASSISTED. NOT TOWARDS POC GOALS.
[2019-10-02 19:45] VITALS: BP 125/70
[2019-10-03 05:45] VITALS: BP 119/77
--- NOTE | 2019-10-03 07:10 | NUR ---
ASSUMED CARE AT 1900. PT ASKED TO BE TURNED D/T BUTTOCK PAIN; Q2 TURNS TO PREVENT FURTHER BREAKDOWN ON BUTTOCKS, LEGS ELEVATED, PILLOWS UNDER ARMS TO MINIMIZE EDEMA. MULTIPLE LARGE, SOFT STOOLS OVERNIGHT; BARRIER CREAM APPLIED TO BUTTOCKS. ENCOURAGED PT TO MOVE HIS ARMS MORE AND ADJUST HOB HEIGHT HIMSELF. NO OTHER CONCERNS, SHIFT REPORT GIVEN AT 0700.
[2019-10-03 08:30] VITALS: BP 130/74
[2019-10-03 12:00] VITALS: BP 117/71
[2019-10-03 13:52] LABS: HEMATOCRIT 23.6 % (42.0-52.0); HEMOGLOBIN 7.7 gm/dL (14.0-18.0); MCH 30.7 pg (26.0-34.0); MCHC 32.7 g/dL (28.0-37.0); RBC 2.51 mil/uL (4.50-6.00); RDW 18.8 % (10.5-14.5); WBC 5.6 thou/uL (4.0-11.0)
[2019-10-03 13:58] LABS: CALCIUM 8.2 mg/dL (8.5-10.1); CREATININE 0.6 mg/dL (0.7-1.3); MAGNESIUM 1.7 mg/dL (1.8-2.4); POTASSIUM 3.4 mmol/L (3.5-5.1)
[2019-10-03 16:02] VITALS: BP 118/65
--- NOTE | 2019-10-03 16:24 | NUR ---
PT IS A&OX3 , BUT PT IS FORGETFUL, PT IS CONTINUING ENHANCED ORECAUTIONS , PT IS CONTINUING O2 1.5L/MIN/NC, PT'S VS ARE STABLE, PT NEEDS HELP MEALS AND CHANGE POSITION, RN HAS CALLED DR TO REPORT ABNORMAL LAB RESULTS, NEW ORDER RECEIVD, POTASSIUM AND MAG HAVE REPLACEMENT BY IV , PT DENIES PAIN AND SOB AT THIS TIME.
[2019-10-03 20:31] VITALS: BP 120/76
--- NOTE | 2019-10-04 04:18 | NUR ---
ASSUMED CARE AT 1900. PT C/O BACK AND BUTTOCK PAIN, PRIMARILY R/T POSITIONING; Q2 TURNS HELP BUT ALSO GAVE TYLENOL W/ HS MEDS. IMPROVED ORAL INTAKE, HAS ASKED FOR AND DRANK MULTIPLE THICKENED JUICES. HAVE HAD PT HOLD BOTH SPOON AND DRINK WHILE STAFF PROVIDED SLIGHT SUPPORT TO PREVENT SPILLS; PT ABLE TO LIFT BUT HAS POOR DEXTERITY AND TREMORS. CONTINUING TO APPLY BARRIER CREAM TO BUTTOCKS, PRAFO BOOTS FOR HEEL PROTECTION, AND KEEPING PILLOWS UNDER ARMS TO HELP WITH DEPENDENT EDEMA. NO OTHER CONCERNS, WILL CONTINUE TO MONITOR.
[2019-10-04 04:55] VITALS: BP 137/82
[2019-10-04 07:31] VITALS: BP 142/77; BP 1523/79; BP 153/79
[2019-10-04 07:40] LABS: ABSOLUTE NEUTROPHILS 2.9 thou/uL (1.4-8.2); BASOPHILS 0.5 % (0.0-2.0); EOSINOPHILS 3.6 % (0.0-3.0); HEMATOCRIT 23.1 % (42.0-52.0); HEMOGLOBIN 7.5 gm/dL (14.0-18.0); LYMPHOCYTES 16.6 % (24.0-44.0); MCH 30.8 pg (26.0-34.0); MCHC 32.6 g/dL (28.0-37.0); MCV 94.5 fL (80.0-100.0); MONOCYTES 11.2 % (1.0-8.0); POLYS 68.1 % (36.0-66.0); RBC 2.45 mil/uL (4.50-6.00); RDW 18.6 % (10.5-14.5); WBC 4.3 thou/uL (4.0-11.0)
[2019-10-04 09:03] LABS: ALBUMIN 2.5 g/dL (3.4-5.0); CREATININE 0.5 mg/dL (0.7-1.3); MAGNESIUM 1.9 mg/dL (1.8-2.4); PHOSPHORUS 2.7 mg/dL (2.5-4.9); POTASSIUM 3.4 mmol/L (3.5-5.1); TOTAL BILIRUBIN 0.4 mg/dL (<0.1-1.0); TOTAL PROTEIN 5.6 g/dL (6.4-8.2)
[2019-10-04 11:29] LABS: LARGE PLATELETS FEW; PLATELET COUNT 125 thou/uL (150-400); PLATELET ESTIMATE SLIGHTLY DECREASED
[2019-10-04 11:30] LABS: ANISOCYTOSIS 2+; HYPOCHROMASIA 1+
[2019-10-04 17:03] VITALS: BP 135/83
--- NOTE | 2019-10-04 18:22 | NUR ---
PT REMAINS VERY WEAK...ATTMEPTED TO SELF FEED AT BREAKFAST AND FED SELF 20%...REFUSED TO ATTEMPT LUNCH OR DINNER SELF FEEDS...REQUIRES LOTS OF TIME WITH MEALS AND BECOMES EXHAUSTED EASILY..
[2019-10-04 21:30] VITALS: BP 150/63
--- NOTE | 2019-10-05 03:05 | NUR ---
Patient making slow progress towards outcome goals. Very weak. Incontinent of large liquid stools, very foul smelling, orders received and specimen sent for cdiff testing. Temp 99. oxygen sat 91 % on room air. BP stable. Turned to sides. High fall risks, fall precautions in place. Able to use call light appropriately for needs. Extra dose of potsassium 40 meq given as ordered. Started on Metronidazole , cdiff results pending.
[2019-10-05 05:15] VITALS: BP 145/76
[2019-10-05 08:16] VITALS: BP 1551/80
--- NOTE | 2019-10-05 13:51 | NUR ---
PER 5N REHAB PHYSICIAN, MARIA DOLORES CARTER TO PURSUE AUTHORIZATION ON THIS PATIENT FOR ACUTE REHAB Pt HAS MEDICAL COMPLEXITY. RECEIVED AUTHORIZATION THIS AFTERNOON FROM [facility], AUTH #[id number]. AUTHORIZATION IS GOOD FOR 7 DAYS THROUGH 10/11/19. ON 10/12/19, Pt WOULD REQUIRE NEW AUTHORIZATION. APPROVED FOR 3 DAYS WITH CLINICAL UPDATES DUE ON THIRD DAY TO [place] AT PHONE [phone] EXT [phone], FAX [phone]. UPDATE: PER DR. MARTINEZ, Pt NEEDS TO HAVE AT LEAST ONE NEGATIVE COVID TEST PRIOR TO TRANSFER TO ACUTE REHAB. Pt STILL TESTING POSITIVE OF 10/02/19. WILL CONTINUE TO FOLLOW THIS Pt AND AWAIT NEGATIVE COVID TEST.
[2019-10-05 16:49] VITALS: BP 146/72
--- NOTE | 2019-10-05 16:55 | NUR ---
ROMAINE reviewed chart and spoke with nursing and attending physician. Pt remains in Enhanced Isolation due to repeat positive COVID-10 test. ROMAINE discussed with rehabilitation case coordinator, who submitted for insurance authorization for admission to in acute rehab. Authorization for admission to in acute rehab is good until 10/10. Repeat COVID-19 test will be ordered. ROMAINE spoke with pt's friend, Ney, via phone to provide update. Ney agreeable with plan for pt to be admitted to acute rehab status when stable. ROMAINE is following to assist as needed with discharge planning.
[2019-10-05 21:23] VITALS: BP 136/69
--- NOTE | 2019-10-06 03:59 | NUR ---
Patient making slow progress towards outcome goals. Fatigued with any activity. Now needs 2L/NC oxygen to keep sats in upper 90's. Good oral intake and output. Vital signs stable. Afebrile. High fall risks, fall precautions in place. Shearing buttocks r/t incontonence. Turned to sides every 2 hours. Protective cream applied.
[2019-10-06 04:15] VITALS: BP 139/76
[2019-10-06 08:33] VITALS: BP 112/65
[2019-10-06 11:32] VITALS: BP 124/71
--- NOTE | 2019-10-06 13:31 | NUR ---
PT CARE ASSUMED AT 0700, PT ALERT AND ORIENTED X4, SEEMS FORGETFUL AT TIMES BUT PLEASANT. PT DENIES CHEST PAIN NAUSEA AND VOMITING. COMPLAINS OF SHOULDER PAIN WHICH I GAVE HIM TYLENOL FOR. PT OXYGEN SAT IS IN THE HIGH 90'S, DECREASED OXYGEN TO 1L. PT SEEMS MORE WEAK THIS MORNING. CALL LIGHT AND TABLE WITHIN REACH. BED AT LOWEST LEVEL WITH ALARM ON
--- NOTE | 2019-10-06 16:05 | NUR ---
ROMAINE reviewed chart and spoke with nursing and attending physician. Pt remains in Enhanced Isolation. Discussed with clinical team about pt being admitted to in acute rehab. Insurance has provided insurance authorization for pt to be admitted to acute rehab. [facility] is not able to move pt to the in acute rehab unit. Recommendation made to consider alternate in acute rehab facilities. ROMAINE contacted [facility], [facility] and [facility], who all state that pts must have two negative COVID tests prior to considering pt for admission. ROMAINE notified that the inpt acute rehab unit at [facility] is able to accept COVID positive pts. ROMAINE spoke with Laury in admissions, who confirmed and states they are in network with pt's insurance. ROMAINE attempted to contact pt via phone. No answer in his room. ROMAINE spoke with pt's friend, Ney, to provide update and discuss placement in an outside inpt acute rehab unit. Options discussed. Per Ney, [facility] is a convenient location, but would like to see if there are any other options in a hospital setting. Ney is agreeable with sending pt's info to [facility] for review. ROMAINE contacted [facility] acute rehab admissions dept, who states that [facility] is the only [facility] facility that accepts COVID-19 pts. ROMAINE spoke with admissions at [facility], who states they are not able to accept external COVID pts. ROMAINE attempted to contact the admissions dept at [facility] in acute rehab. No option to leave voice message at this time. ROMAINE left voice message for admissions at [facility] in acute rehab unit. ROMAINE faxed referral to [facility]. ROMAINE is following to assist as needed with discharge planning.
[2019-10-06 21:00] VITALS: BP 132/74
[2019-10-07 08:45] VITALS: BP 110/69
--- NOTE | 2019-10-07 10:39 | NUR ---
ROMAINE reviewed chart and spoke with nursing. Pt remains in Enhanced Isolation. Repeat COVID-19 test ordered today. ROMAINE left voice message for Laury at [facility] acute rehab unit to confirm referral was received yesterday afternoon. Awaiting call back at this time. ROMAINE is following to assist as needed with discharge planning.
[2019-10-07 16:21] VITALS: BP 137/75
--- NOTE | 2019-10-07 18:35 | NUR ---
PT CARE ASSUMED AT 0700, PT ALERT AND ORIENTED X4, FORGETFUL AT TIMES. DENIES ANY CHEST PAIN, NAUSEA AND VOMITING. PT CPMPLAINS OF TOLERABLE LEFT SHOULDER PAIN. PT IS ON 1L OF OXYGEN, WNL. PT SUPAPUBIC CATHETER IS PATENT, URINE COLOR YELLOW, NO SEDIMENT NOTED. PT MEDICATED FOR SHOULDER PAIN. CALL LIGHT AND TABLE IN REACH. BED AT LOWEST LEVEL WITH ALARM ON.
[2019-10-07 20:50] VITALS: BP 128/75
--- NOTE | 2019-10-08 06:02 | NUR ---
OXYGEN TITRATED DOWN TO 1 LITER WITH OXYGEN SATS IN 90'S. PT HAVING COMPLAINTS OF HIS FEET BURNING AND HURTING. REMOVED PT SOCKS AND LOTION FEET WHICH SEEM TO HELP. PT IS CONFUSED AT TIMES AND WAS WANTING TO ORDER SOMETHING OFF THE TV. VSS, PT TOLERATES PILLS IN APPLESAUCE OR YOGURT. PT ALSO HAD A BM VIA BEDPAN IN THE EARLY PART OF THE SHIFT. CALL LIGHT WITHIN REACH AND PT CAN PRESS THE LIGHT TO EXPRESS NEEDS.
[2019-10-08 06:25] VITALS: BP 148/85
[2019-10-08 08:10] VITALS: BP 120/70; BP 150/84
[2019-10-08 12:03] VITALS: BP 125/78
--- NOTE | 2019-10-08 12:19 | NUR ---
ON-GOING ASSESSMENT: CM REVIEWED CHART AND SPOKE WITH ATTENDING. PTS SECOND COVID TEST HAS BEEN ORDERED AND AWAITING RESULTS AT THIS TIME. CM SPOKE WITH 5[facility]ASON WHO REPORTS CONCERNS WITH TOLERANCE WELL IF HE WILL NEED ADDITIONAL CARE AFTER DISCHARGE. CM REACHED OUT TO TERESA PTS FRIEND WELL PATIENTS CARLOS MARIE. TERESA REPORTS THEY HAVE ALREADY BEEN WORKING TO GET PEOPLE ALIGNED TO HELP PT AT HOME WHENEVER HE MAY DISCHARGE AND REPORT THEY HAVE HAD ALOT OF VOLUNTEERS. HE REPORTS HE BELIEVES THEY CAN HAVE 24 HOUR CARE FROM FRIENDS IF NEEDED. 5N STATING THEY CAN ACCEPT THE PATIENT FOR ADMISSION TOMORROW IF SECOND COVID TEST COMES BACK NEGATIVE. TERESA AND CARLOS MARIE ARE AGREEABLE WITH PLANS. PER REHAB THEY HAVE AUTH TO ACCEPT PT. CM DIRECTOR IS AWARE OF PLAN. WILL AWAIT RESULTS OF SECOND COVID TEST. CM WILL CONTINUE TO FOLLOW TO ASSIST NEEDED.
--- NOTE | 2019-10-08 15:49 | NUR ---
PT IS A&OX3, BUT PT IS FORGETFUL, PT IS CONTINUING O2 1L/MIN/NC, PT'S VS ARE STABLE, PT GETS UP TO CHAIR WITH 2 PERSON ASSIT , PT HAS SECOND TIME COVID TEST DONE AT 1200PM TODAY, PT NEEDS HELP MEALS AND WILSON POSITION.PT DENIES PAIN AND SOB AT THIS TIME.
[2019-10-08 17:00] VITALS: BP 130/70
[2019-10-08 19:25] VITALS: BP 138/75
--- NOTE | 2019-10-08 20:35 | NUR ---
PT RESTING IN BED WATCHING TV. O2 PER NC. LUNGS WITH CRACKLES. [facility] CONFUSED TO TIME. PT ASSISTS WITH UPPER EXTREMITIES WITH REPOSITIONING. BARRIER CREAM TO COCCYX WOUND. RUE EDEMA DVT REMAINS. SUPRAPUBIC CATHETER INTACT. SECOND COVID TEST NEGATIVE, PT PARTS SALES COUNTERPERSON AND PROVIDER NOTIFIED. PT ASSISTED WITH FLUIDS NECTAR.
--- NOTE | 2019-10-09 02:11 | NUR ---
TERESA HANSEN CALLED FOR UPDATE, NOTIFIED OF SECOND NEGATIVE COVID RESULT.
[2019-10-09 05:04] VITALS: BP 139/80
[2019-10-09 08:09] VITALS: BP 140/73
[2019-10-09] MEDS ORDERED: IPRAT-ALBUT 0.5-3 ML INH (09:07)
[2019-10-09] MEDS ORDERED: NORVASC10 MG PO (09:08)
[2019-10-09] MEDS ORDERED: PEPCID20 MG PO (09:08)
[2019-10-09] MEDS ORDERED: MIRALAX17 GM PO (09:08)
[2019-10-09] MEDS ORDERED: HYDROCORTISONE10 MG PO ×2 (09:09)
[2019-10-09] MEDS ORDERED: GLUCOPHAGE500 MG PO (09:09)
[2019-10-09] MEDS ORDERED: HUMALOG100 UNIT/1 SUBQ (09:09)
[2019-10-09 09:24] VITALS: BP 140/73
[2019-10-09] MEDS ORDERED: ENOXAPARIN60 MG/0.1 SUBQ (09:24)
--- NOTE | 2019-10-09 10:11 | NUR ---
DISCHARGE NOTE: ROMAINE reviewed chart. Pt had second negative COVID-19 test yesterday. Pt is medically stable to discharge to [facility] inpt acute rehab status. Pt will remain in his room on 3W and received therapy services from [facility]. ROMAINE spoke with pt's friend, Ney Mascorro to provide update and discuss plan of care and change to 5N status. Ney verbalized understanding and has updated pt's Eulalio borjas, and pt's friend, Dr. Kristel Pearl. ROMAINE emailed Ney list of in-network SNFs for review. Ney states that the [facility] is working together to have [address] pt is discharged home. An RN is able to assist with pt when he returns home. Ney states they are open to having HH as well come to the home to assist pt after discharge. ROMAINE explained that rehab team mtgs are held on Saturday afternoons and that pt's progress will be discussed. Ney verbalized understanding. ROMAINE notified spiritual care that pt has had two negative COVID-19 tests. [place] to assist with DPOA paperwork when able. Pt to remain a confidential pt while in rehab status. Rehab CM to follow and assist as needed with discharge planning.
--- NOTE | 2019-10-12 14:18 | HC ---
[facility] [place] [address] CONSULTATION Name: ROOPA WAY Room #: 349-[place] [facility] [place] ..#: [id number] Admission: 08/17/19 Attend Phys: Jameel Dickens MD Discharge: 10/09/19 Date of : [birth year] Report #: [id number] THIS REPORT FOR: cc: ISAURO Garcia family physician/PCP ISAURO Garcia family physician/PCP Katie Pruett MD ~ CC: ISAURO physician/PCP Jameel Cho DATE OF SERVICE: 10/09/2019 ENDOCRINE CONSULTATION NOTE CONSULTING PHYSICIAN: Dr. Jason. REASON FOR CONSULTATION: Type 2 diabetes mellitus and adrenal insufficiency. HISTORY OF PRESENT ILLNESS: This is an 89-year-old male patient, whose medical background is mostly remarkable for pneumonitis and respiratory failure in the setting of a COVID-19 positive state. The patient was admitted to [facility] with progressive and severe respiratory difficulties about 2 months ago and had quickly needed mechanical ventilation, which lingered for several weeks. The patient had a slow recovery and was eventually successfully extubated on 09/16/2019 and was able shortly thereafter to be released to the general medical floor. During his course in the ICU, the patient required support with mechanical ventilation as well as tube feedings and had needed to receive large doses of glucocorticoids therapy for an extended period of time. The patient's background is significant for type 2 diabetes mellitus that was treated prior to this admission with Tradjenta monotherapy. The patient reported a reasonable level of control on that therapeutic approach. However, as the patient went into respiratory failure and given the above events during his hospital stay last month and the month prior, the patient needed support with a basal bolus insulin therapy and was fairly well controlled for hyperglycemia during that period of time. Since his extubation on 09/16/2019, the patient has progressively improved his p.o. intake and in conjunction with that has needed less intensive glycemic support to where he is currently on a combination of Tradjenta 5 mg daily and metformin 500 mg b.i.d. with what has been fairly consistent level of control within target range for his blood glucose values. The patient is also maintained on a low intensity Humalog supplemental scale that is customized so as not to utilize it unless his blood glucose is over 200 mg/dL and has not practically needed that kind support for several days. The patient has not had a prior history of adrenal insufficiency; however, as he [address] [address] CONSULTATION Name: ROOPA WAY Rod Room #: 349-[place] [facility] [place] [facility]#: [id number] Admission: 08/17/19 Attend Phys: Jameel Dickens MD Discharge: 10/09/19 Date of : [birth year] Report #: [id number] was tapered off glucocorticoid, the patient developed issues with hypotension and progressive fatigue and weakness, which raised the concern about possible adrenal insufficiency predisposed by the cessation of our supportive care with glucocorticoids. Subsequently, the patient was treated with stress dose hydrocortisone and did well and he was quickly tapered down to maintenance hydrocortisone intake at 20 mg in a.m. and 10 mg in p.m., which he continues to receive. For over a week now, the patient has maintained hemodynamic stability and showed signs of improving level of energy and stable clinical outlook. REVIEW OF SYSTEMS: CONSTITUTIONAL: Fatigue, tiredness, but not fever or chills. HEENT: Negative for sore throat, sinus pain, ear drainage. PULMONARY: Intermittent issues with shortness of breath and cough, but no hemoptysis. CARDIAC: Negative for chest pain, palpitations, syncope or presyncope. GASTROINTESTINAL: Negative for abdominal pain, nausea, vomiting or changes in bowel movement frequency. NEUROLOGY: Negative for loss of consciousness, seizure activity or severe frequent headaches. PSYCHIATRIC: Negative for delusions, hallucinations. Otherwise, review of systems noncontributory unless mentioned in HPI. PAST MEDICAL HISTORY: Noted for: 1. Type 2 diabetes mellitus. 2. Adrenal insufficiency developing following the cessation of prolonged high dose glucocorticoid therapy in the ICU setting. 3. Hyperlipidemia. 4. Pneumonitis. 5. COVID-19 positive state. The patient was last tested for COVID-19 on 10/08/2019 and it was negative. He was tested on 10/07/2019 and it was negative as well. 6. Respiratory failure, status post mechanical ventilation and successful extubation on 09/16/2019. 7. Benign prostatic hypertrophy. 8. Hypertension. 9. Debilitation. 10. Malnutrition. 11. Sacral decubitus ulcers. CURRENT MEDICATIONS: Include: 1. Proscar 5 mg daily. 2. MiraLax. 3. Zofran. 4. Norvasc 10 mg daily. 5. Linagliptin 5 mg daily. 6. Humalog supplemental scale. [facility] [address] [place] [address] CONSULTATION Name: ROOPA WAY Room #: 349-I [facility] [place] M.R.#: [id number] Admission: 08/17/19 Attend Phys: Jameel Dickens MD Discharge: 10/09/19 Date of : [birth year] Report #: [id number] 7. Hydrocortisone 20 mg in a.m., 10 mg in p.m. p.o. 8. Glucophage 500 mg b.i.d. with meals. 9. Flomax 0.4 mg b.i.d. 10. Famotidine 20 mg b.i.d. 11. Lovenox 60 mg b.i.d. subcutaneous. 12. Colace 100 mg b.i.d. 13. Atorvastatin 10 mg at bedtime. 14. Albuterol p.r.n. 15. Tylenol 650 mg q.6 hours p.r.n. ALLERGIES: The patient does not have known drug allergies. FAMILY HISTORY: Noncontributory. 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 He denies use of tobacco, alcohol or illicit drugs. PHYSICAL EXAMINATION: GENERAL: Pleasant elderly -Welsh male patient who is not in apparent pain or distress. VITAL SIGNS: Blood pressure is 140/73, heart rate is 85 beats per minute, respirations 20 per minute, temperature 98.5 Celsius degrees. CONSTITUTIONAL: Elderly -Welsh male patient who is not in apparent pain or distress. Appears cachectic and debilitated, but not in pain or distress. HEENT: Anicteric sclerae. Intact extraocular motions. NECK: Supple without JVD, carotid bruits or lymphadenopathy, no thyromegaly. CHEST: Noted for moderate air entry bilaterally with scattered rales and rhonchi, but no wheeze or crackles. HEART: Regular rate and rhythm without murmurs or gallops. ABDOMEN: Soft, lax, no tenderness, no organomegaly. Active bowel sounds. EXTREMITIES: Lower extremity exam noted for edema. Both lower extremities are in a supportive boot. NEUROLOGIC: Awake, alert and oriented to time, place and person. The remainder of his examination is nonfocal. PSYCH: Interactive. Normal mood and affect. LABORATORY DATA: Blood glucose values have consistently run from 100-180 mg/dL with occasional deviations the last being at 239 mg/dL yesterday at 8:00 p.m. Otherwise, sodium 141, potassium 3.4, chloride 105, CO2 32, anion gap 4, BUN 9, creatinine 0.5, glucose 87. AST 16, total bilirubin 0.4, calcium 8.0, phosphorus 2.7, magnesium 1.9, alkaline phosphatase 53, ALT 19, total protein 5.6, albumin 2.5, EGFR 190. Lactic acid 1.6. Troponin negative. BNP 1523. CRP 23.4. INR 1.1. White blood count 4.3, hemoglobin 7.5, hematocrit 23.1, platelets 125. TSH 0.6. Vitamin B12 5162. Hemoglobin A1c 8.8%. COVID-19 negative two times in a row on the and . [address] [address] CONSULTATION Name: ROOPA WAY Room #: 349-I [facility]#: [id number] Admission: 08/17/19 Attend Phys: Jameel Dickens MD Discharge: 10/09/19 Date of : [birth year] Report #: [id number] ASSESSMENT AND PLAN: 1. Type 2 diabetes mellitus. As noted in HPI, the patient was treated at baseline with Tradjenta monotherapy with reported reasonable level of control. However, his hemoglobin A1c that was measured upon admission reflected in adequate control at 8.8%. As noted above, the patient had needed variable levels of support for diabetes mellitus during his hospital stay that fluctuated as his overall illness severity. He went from needing a basal bolus insulin support to the current therapy with Tradjenta 5 mg daily and metformin 500 mg b.i.d. with excellent blood glucose control. Given his current outlook and the consistent achievement of glycemic goals, I will have him continue with the current regimen as well as maintain a customized Humalog supplemental scale support as needed with blood glucose monitoring a.c. and at bedtime. 2. Malnutrition. The patient is cachectic and malnourished. He has needed a tube feeding support throughout his ICU stay, but is now able to advance his p.o. intake at a reasonable rate. 3. Pneumonia. The patient presented with COVID-19 positive state and was treated with protocol of azithromycin and hydroxychloroquine at that time as well as needed intensive support with mechanical ventilation, high-dose glucocorticoid therapy, bronchodilators. The pulmonary team continues to follow the patient. I was pleased to see that his last two COVID-19 checks were actually negative. 4. Adrenal insufficiency. This was precipitated by the need for prolonged, high-dose glucocorticoid support. The patient developed features of adrenal insufficiency upon the complete cessation of glucocorticoids, which necessitated a stress dosing that later was tapered down to maintenance hydrocortisone therapy in the form of 20 mg p.o. in a.m. and 10 mg p.o. in p.m. The patient gives an outlook of clinical and hemodynamic stability on this regimen. He will be continued on the same for the time being. 5. Hyperlipidemia. The patient is maintained on atorvastatin therapy and tolerates it well, he is to continue with the same. I have reviewed the patient's clinical care notes, laboratory data, and other relevant clinical information past and present for over 35 minutes. I certainly appreciate this consultation by Dr. Jason. <ELECTRONICALLY SIGNED> By: Katie Pruett MD 10/12/19 1418 [id number] 37 Katie Pruett MD /nt
== END 2019-10-09 11:15 | DRG 870 ==
LOC: ER 14:43 → 3W 17:18 → ICU 17:18 → 3W 17:18 → EROBS 17:18 → 3W 17:43 → ICU 08-20 02:04 → 3W 09-20 12:36 → ICU 09-20 15:30 → 3W 09-22 22:56
PROVIDERS: Hospitalist; Internal Medicine; Internal Medicine Pulmonary Disease; Nurse Practitioner Family; Pediatrics; Physician Assistant; Specialist; ADMIT Internal Medicine
PROC: 5A1955Z Respiratory Ventilation, Greater than 96 Consecutive Hours (ICD-10-PCS; principal; 2019-08-22)
PROC: 0BH17EZ Insertion of Endotracheal Airway into Trachea, Via Natural or Artificial Opening (ICD-10-PCS; principal; 2019-08-22)
PROC: 02HV33Z Insertion of Infusion Device into Superior Vena Cava, Percutaneous Approach (ICD-10-PCS; 2019-08-23)
PROC: 5A09357 Assistance with Respiratory Ventilation, Less than 24 Consecutive Hours, Continuous Positive Airway Pressure (ICD-10-PCS; 2019-09-08)
PROC: 5A09357 Assistance with Respiratory Ventilation, Less than 24 Consecutive Hours, Continuous Positive Airway Pressure (ICD-10-PCS; 2019-09-20)
PROC: 0DH673Z Insertion of Infusion Device into Stomach, Via Natural or Artificial Opening (ICD-10-PCS; 2019-09-21)
PROC: 5A09357 Assistance with Respiratory Ventilation, Less than 24 Consecutive Hours, Continuous Positive Airway Pressure (ICD-10-PCS; 2019-09-21)
DX: A41.89 Other specified sepsis (principal); R65.21 Severe sepsis with septic shock; U07.1 COVID-19; J12.89 Other viral pneumonia; J96.01 Acute respiratory failure with hypoxia; G92 Toxic encephalopathy; E43 Unspecified severe protein-calorie malnutrition; J96.02 Acute respiratory failure with hypercapnia; N39.0 Urinary tract infection, site not specified; G72.81 Critical illness myopathy; E27.40 Unspecified adrenocortical insufficiency; E87.1 Hypo-osmolality and hyponatremia; E87.3 Alkalosis; E11.9 Type 2 diabetes mellitus without complications; E78.5 Hyperlipidemia, unspecified; B96.1 Klebsiella pneumoniae [K. pneumoniae] as the cause of diseases classified elsewhere; N40.0 Benign prostatic hyperplasia without lower urinary tract symptoms; L89.159 Pressure ulcer of sacral region, unspecified stage; I10 Essential (primary) hypertension; D64.9 Anemia, unspecified; E87.8 Other disorders of electrolyte and fluid balance, not elsewhere classified; Z66 Do not resuscitate; R23.8 Other skin changes; M19.011 Primary osteoarthritis, right shoulder; B37.9 Candidiasis, unspecified; I95.9 Hypotension, unspecified; Z68.26 Body mass index [BMI] 26.0-26.9, adult; Z79.899 Other long term (current) drug therapy
CPT/HCPCS: 10078; 10080; 10203; 10779; 10879; 27000

== ENCOUNTER 2019-10-09 09:41 | Inpatient (IN) | payer OTHER ==
[~2019-10-09] VITALS: Ht 160 cm; Wt 66.3 kg
[~2019-10-09 09:41] MED LIST: ENOXAPARIN60 MG/0.1 SUBQ; FINASTERIDE5 MG PO; GLUCOPHAGE500 MG PO; HUMALOG100 UNIT/1 SUBQ; HYDROCORTISONE10 MG PO; IPRAT-ALBUT 0.5-3 ML INH; LISINOPRIL20 MG PO; LOVASTATIN 20 M20 MG PO; MIRALAX17 GM PO; NORVASC10 MG PO; PEPCID20 MG PO; TAMSULOSIN HCL0.4 MG PO; TRADJENTA5 MG
--- NOTE | 2019-10-09 11:49 | NUR ---
pt going to admit to acute 5n rehab today. 2 negative covid test. he will remain on 3w and have rehab down there. cm visited with bishop ruggiero via phone call. intro to cm, dcp, and team meeting. he reported " have support from family, friend and [facility]. independent prior to hospital. 2 story home. 1 bedroom on main level. flight stairs upstairs with more bedrooms and flight stairs down to basement. have 2 walkers to help with that. manage own medication prior to hospital and was driving prior to hospital. do have some volunteer to help with driving if needed. thank you, look forward to speaking with you again"/bishop ruggiero.
[2019-10-09 14:47] VITALS: BP 129/69
--- NOTE | 2019-10-09 15:34 | NUR ---
PT HAS BEEN IN BED THE ENTIRETY OF THIS SHIFT, PT HAS BEEN SEEN BY NUMEROUS CARE TEAM MEMBERS THROUGHOUT. PT HAS BEEN STABLE THIS SHIFT. VS HAVE BEEN UNREMARKABLE AND PATIENT HAS BEEN NOT EXERTING MORE ENERGY. THIS RN FEARS PT MAY BE BECOMING CODEPENDANT. RN IS WORKING TO HAVE PT UTILIZE OWN FORCE AND STERNGTH THIS SHIFT. WILL CONTINUE TO MONITOR.
[2019-10-09 20:41] VITALS: BP 131/70
--- NOTE | 2019-10-10 03:33 | NUR ---
PT MAKING PROGRESS TOWARDS GOALS. DISCUSSED USE OF PAIN MEDICATION WITH PATIENT. PT HAD BEEN WAITING UNTIL THE ABDOMINAL/BACK PAIN WAS BECOMING UNBEARABLE TO WHICH SHE WOULD RATE 7/10. PTS REPORTED GOAL LEVEL OF PAIN WAS 4-5/10. ENCOURAGED PT TO CALL FOR PAIN MEDICATION WHEN HER PAIN REACHED 5/10 AND THAT SHE BELIEVED IT WAS CONTINUING TO INCREASE. PT VOICED UNDERSTANDING. X2 DOSES OF PERCOCET 7.5MG GIVEN PER ORDERS OVERNIGHT. PT REPORTED PAIN LEVEL DECREASED TO 1-2/10 AFTER EACH DOSE.
--- NOTE | 2019-10-10 04:46 | NUR ---
ASSUMED CARE AT 1900, ASSESSMENT COMPLETED. PT REPORTS INTERMITTENT PAIN, RELIEVED WITH TURNS, TYLENOL ONCE. ENCOURAGING PT TO HOLD DRINKS/UTENSILS AND ASSIST WITH TURNS; INSTRUCTED TO KEEP RIGHT HAND ELEVATED TO MINIMIZE EDEMA. SUPRAPUBIC DRAINING WELL. NO OTHER CONCERNS, WILL CONTINUE TO MONITOR.
[2019-10-10 06:03] LABS: ABSOLUTE NEUTROPHILS 2.8 thou/uL (1.4-8.2); BASOPHILS 0.7 % (0.0-2.0); EOSINOPHILS 1.5 % (0.0-3.0); HEMATOCRIT 26.7 % (42.0-52.0); HEMOGLOBIN 8.7 gm/dL (14.0-18.0); MCH 30.3 pg (26.0-34.0); MCHC 32.8 g/dL (28.0-37.0); MCV 92.4 fL (80.0-100.0); MONOCYTES 9.8 % (1.0-8.0); PLATELET COUNT 115 thou/uL (150-400); RBC 2.88 mil/uL (4.50-6.00); RDW 17.5 % (10.5-14.5); WBC 4.2 thou/uL (4.0-11.0)
[2019-10-10 06:11] LABS: CALCIUM 8.1 mg/dL (8.5-10.1); CREATININE 0.6 mg/dL (0.7-1.3); MAGNESIUM 1.6 mg/dL (1.8-2.4); POTASSIUM 3.2 mmol/L (3.5-5.1)
[2019-10-10 08:33] VITALS: BP 147/85
--- NOTE | 2019-10-10 13:28 | NUR ---
ASSISTED P.T. WITH EVALUATION FOR 40 MINUTES DUE TO PT COMPLEXITY, LIFTING ASSIST, POOR TOLERANCE TO WBING ACTIVITY, AND SAFETY. [phone]
--- NOTE | 2019-10-10 15:46 | NUR ---
PATIENT RESTED IN ROOM THROUGH THE DAY. UP ON RECLINER AND NOW BACK TO BED. DENIES PAIN WHEN ASKED. RESPIRATIONS ARE NON LABORED. HE IS STILL WEAK. UABLE TO FEED HIMSELF. HAS BEEN ENCOURAGED TO DO MORE FOR HIMSSELF. WILL CONT WITH PLAN OF CARE.
[2019-10-10 16:11] VITALS: BP 122/78
[2019-10-10 19:24] VITALS: BP 149/71
--- NOTE | 2019-10-11 05:19 | NUR ---
RECIEVED CARE OF THIS PATIENT AT 1900. PATIENT ALERT AND ORIENTED X4, WITH PERIODS OF CONFUSION AND FORGETFULLNESS. CAN BE INPATIENT AT TIMES. ACCUCHECK WAS 210, RECEIVED 4 UNITS LISPRO INSULIN. DENES PAIN. REMAINS IN ISO FOR COVID-19. HAS TESED NEG X2. HAS SUPRAPUBIC CATH THAT IS PATENT. SPLEPT MOST OF THE NIGHT.
[2019-10-11 05:45] VITALS: BP 174/87
[2019-10-11 08:00] VITALS: BP 148/87
--- NOTE | 2019-10-11 11:00 | NUR ---
PATIENT ATE 90% OF BREAKFAST THAT NURSE FED HIM. PT TOOK AM MEDS AND PRN PAIN MED W/O DIFFICULTY. BLOOD SUGARS MONITORED. PT WORKING WITH THERAPY. PT IS PLEASANT AND COOPERATIVE WITH CARE, REMAINS ON BEDREST WITH LOW AIR LOSS MATTRESS WILL TURN AT TIMES. PT IS PLEASANT AND COOPERATIVE WITH CARE.
--- NOTE | 2019-10-11 12:58 | NUR ---
PATIENT RESTING IN BED. STATES NO PAIN AT THIS TIME. BLOOD SUGAR CHECKED AND INSULIN GIVEN PER ORDERS. FED PATIENT DINNER ATE 75 %. PT HAS 900 CC CLEAR YELLOW URINE IN FERNANDO CATH BAG. PT IS PLEASANT AND COOPERATIVE WITH CARE.
--- NOTE | 2019-10-11 18:41 | NUR ---
PATIENT RESTING IN BED WATCHING TV. PT ALERT XS 4. VERY NICE AND PLEASANT. THIS NURSE FED PATIENT ALL MEALS APPETITE GOOD. HAS SUPRA PUBIC CATH WITH LIGHT YELLOW URINE EMPTIED FERNANDO BAG. PT SPOKE WITH TENZIN ON PHONE. PT WORKING WITH THERAPY IS PATIENT OD DR KI BLACKMAN.
[2019-10-11 20:15] VITALS: BP 146/78
--- NOTE | 2019-10-12 02:23 | NUR ---
PT WAS SEEN TODAY. HE HAS BEEN PLEASANT THROUGHOUT THE SHIFT AND THERE DOESN'T SEEM TO BE A DECLINE IN MENTATION OR CHANGES FROM THE PREVIOUS SHIFT. PT'S COCCYX WOUND IS STILL HEALING, Q2H TURNS HAVE BEEN MAINTAINED THIS SHIFT. NO COMPLAINTS AT THIS TIME. PT REQUESTED TO BE SHAVED SO THIS RN SHAVED BEST POSSIBLE. ORAL CARE WAS OFFERED BUT REFUSED. NO BM YET THIS SHIFT BUT PLENTY OF FLATUS. PT HAS BEEN ENCOURAGED TO PERFORM MUCH OF SELF CARE POSSIBLE. PT ATE TWO JELLO CUPS BY SELF, AND ONLY NEEDED LITTLE ASSISTANCE BEING SET UP. WILL CONTINUE TO MONITOR PROGRESS
[2019-10-12 04:09] VITALS: BP 144/73
[2019-10-12 08:50] VITALS: BP 154/82
--- NOTE | 2019-10-12 11:26 | NUR ---
PT CARE ASSUMED AT 0700, PT ALERT AND ORIENTED X4, FORGETFUL AT TIMES. DENIES ANY CHEST PAIN, NAUSEA AND VOMITING. PT IS ON ROOM AIR, OXYGEN SATURATION WNL. PT REPOSITIONED EVERY [address] AND PATENT, YELLOW URINE COLOR. DENIES ANY NEEDS AT THE MOMENT. CALL LIGHT AND TABLE IN REACH. WILL CONTINUE TO MONITOR.
[2019-10-12 17:48] VITALS: BP 144/78
[2019-10-12 20:02] VITALS: BP 129/77
[2019-10-13 05:37] VITALS: BP 145/89
[2019-10-13 07:55] VITALS: BP 154/87
--- NOTE | 2019-10-13 12:57 | NUR ---
team meeting, recommendation: re team, he cont to stay on 3w rt covid precaution even through had 2 negative covid test last week. need family and friend to bring him more shirts and pants.
--- NOTE | 2019-10-13 13:59 | NUR ---
PT CARE ASSUMED AT 0700, PT ALERT AND ORIENTED X4, FORGETFUL AT TIMES. PT DENIES ANY CHEST PAIN, NAUSEA AND VOMITING. PT IS ON ROOM AIR AND O2 SAT WNL. SUPAPUBIC CATHETER IN PALCE AND PATENT. CALL LIGHT AND TABLE IN REACH. BED AT LOWEST LEVEL, WILL CONTINUE TO MONITOR.
[2019-10-13 16:50] VITALS: BP 130/78
[2019-10-13 19:32] VITALS: BP 134/76
--- NOTE | 2019-10-14 01:17 | NUR ---
PT IS VISIBLY GETTING STRONGER EVERY DAY. BEGINNING OF THE SHIFT PT UTILIZED THE CALL LIGHT TO BE REPOSITIOINED. WHILE REPOSITIONING PT MADE A BM, NEW CHUCKS WERE PROVIDED AND PT CLEANSED. PT'S BUTTOCKS APPEAR TO BE HEALING WELL AND ORANGE TUBE CREAM WAS ADMINISTERED. HYDRATION/SNACKS PROVIDED. PT VOICED GRATITUDE FOR THE CARE BEING RECEIVED. Q2H TURNS BEING ENFORCED STRICTLY. PT ENCOURAGED TO USE EXTREMETIES AND ACTIVE MOVEMENTS MUCH POSSIBLE. PAIN MEDICATION TYLENOL ADMINISTERED FOR POSITIONAL PAIN WELL.
[2019-10-14 06:50] LABS: ABSOLUTE NEUTROPHILS 3.1 thou/uL (1.4-8.2); BASOPHILS 0.7 % (0.0-2.0); EOSINOPHILS 3.1 % (0.0-3.0); HEMATOCRIT 28.9 % (42.0-52.0); HEMOGLOBIN 9.4 gm/dL (14.0-18.0); MCH 29.8 pg (26.0-34.0); MCHC 32.6 g/dL (28.0-37.0); MCV 91.5 fL (80.0-100.0); MONOCYTES 10.3 % (1.0-8.0); PLATELET COUNT 147 thou/uL (150-400); POLYS 64.9 % (36.0-66.0); RBC 3.15 mil/uL (4.50-6.00); RDW 17.2 % (10.5-14.5); WBC 4.8 thou/uL (4.0-11.0)
[2019-10-14 06:54] LABS: CALCIUM 8.3 mg/dL (8.5-10.1); CREATININE 0.7 mg/dL (0.7-1.3); MAGNESIUM 1.5 mg/dL (1.8-2.4)
[2019-10-14 07:01] LABS: POTASSIUM 2.8 mmol/L (3.5-5.1)
[2019-10-14 08:24] VITALS: BP 155/79
--- NOTE | 2019-10-14 14:37 | NUR ---
ROMAINE received call yesterday from pt's friend, Ney, requesting update. ROMAINE spoke with Ney and provided updated and requested pt's family/friends bring clothes for pt. ROMAINE encouraged pt's family/friends to drop off clothing items at security and then staff will go get belongings and bring to pt's room. Ney asked about HH services when pt is discharged. Ney requested info on [facility] ([phone]). ROMAINE explained that if [facility] is not a skilled HH agency, there are other options. ROMAINE spoke with Yue in intake at [facility] who states they are not able to provide skilled therapy services. They can provide RN and PST MANAGER services and also homemaker services. SW to update Ney and discuss alternate HH agencies. ROMAINE is following to assist as needed with discharge planning.
--- NOTE | 2019-10-14 18:32 | NUR ---
PATIENT WAS UP ON THE CHAIR/RECLINER FOR JUST AN HOUR OR SO. STATES HE WAS READY TO GET BACK TO BED. HE DENIES PAIN. ALERT ORIENTED X4. ENCOURAGED TO SIT UP LONGER BUT HE STATED HE DID NOT WANT TO AND WILL RATHER GO BACK TO BED. PLEASANT WITH CARE. RESPIRATIONS ARE NON LABORED. FERNANDO DRAINING CLEAR YELLOW URINE. WILL CONT WITH PLAN OF CARE.
[2019-10-14 19:58] VITALS: BP 146/80
[2019-10-15 03:45] VITALS: BP 154/83
--- NOTE | 2019-10-15 04:19 | NUR ---
Assumed pt care at 1900. Pt's A/OX4 with occasional forgetfulness noted. VSS. Denies pain on assessment. Suprapubic catheter patent draining light yellow urine,had a med BM at HS moisture barrier applied prn. Pt repositioned as agreeable to,PRAFO boots/BRIANNA in place. Special contact isolation maintained. Fall precautions in place, calls approp.
[2019-10-15 06:40] LABS: CALCIUM 8.5 mg/dL (8.5-10.1); CREATININE 0.5 mg/dL (0.7-1.3); MAGNESIUM 1.8 mg/dL (1.8-2.4); POTASSIUM 3.5 mmol/L (3.5-5.1)
--- NOTE | 2019-10-15 14:08 | NUR ---
nasir hernandez # [phone]. cm called left message requested call back rt dcp. will cont following as needed for rehab dc needs.
[2019-10-15 14:41] LABS: HEMATOCRIT 30.2 % (42.0-52.0); HEMOGLOBIN 9.7 gm/dL (14.0-18.0)
--- NOTE | 2019-10-15 17:48 | NUR ---
PATIENT UP ON CHAIR FOR DINNER. HE STATES HE FEELS MUCH BETTER TODAY. DOES NOT SEEM TO BE IN PAIN. RESPIRATIONS ARE NON LABORED. WILL CONT WITH PLAN OF CARE.
[2019-10-15 19:30] VITALS: BP 142/60
--- NOTE | 2019-10-16 03:38 | NUR ---
PT ALERT AND ORIENTED X4. VSS AFEBRILE. HRR LCTA AND UNLABORED ON RA. MOISTURE BARRIER APPIED TO BUTTOCKS AND WOUND SITE. INC STOOL SMALL AMTS. S/P CATHETER DRAINING DARK YELLOW COLORED URINE IN MODERATE AMTS. NO C/O PAIN. SLEEPING MEDS GIVEN. PT RESTING QUIETLY. NO S/S DISTRESS. PT STILL WEAK BUT ABLE TO HELP TURN BETTER. SCDS ON PRAFO BOOTS ON. TURNNG PT Q 2 HRS.
[2019-10-16 04:11] VITALS: BP 139/77
[2019-10-16 08:14] VITALS: BP 134/80
--- NOTE | 2019-10-16 17:09 | H ---
[facility] [place] [address] HISTORY AND PHYSICAL Name: ROOPA WAY Room #: 359-P ADM IN M.R.#: [id number] Admission: 10/09/19 Attend Phys: Mason Jason MD Discharge: Date of : [birth year] Report #: [id number] THIS REPORT FOR: cc: ISAURO - No family physician/PCP ISAURO - No family physician/PCP Mason Jason MD ~ CC: Mason BOX physician/PCP DATE OF SERVICE: 10/09/2019 HISTORY AND PHYSICAL AND POSTADMISSION PHYSICIAN EVALUATION HISTORY OF PRESENT ILLNESS: The patient is an 89-year-old -Citizen Of [place] male who was admitted originally back on 08/17/2019 with weakness, cough and chills. He was noted to have acute respiratory failure, community-acquired pneumonia with COVID positive. We are in the midst of a coronavirus pandemic. The patient had a code blue, necessitating intubation and ventilator placement on 08/22/2019. He remained intubated through 09/16/2019. He was treated for bilateral pneumonia, severe sepsis, urinary tract infection. He was treated with hydroxychloroquine and azithromycin. 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 He was transferred out of the ICU once, but then ended up being readmitted with recurrent respiratory failure and concern regarding hypotension. After further prolonged ICU, he was then transferred back to [facility]. The patient has continued with very close multiple telesales consultant medical managements. He has remained off the ventilator. He has had repeat COVID testing and is now tested COVID negative. He has marked weakness, upper and lower extremities with critical illness myopathy and considerable decline from his premorbid status. The patient has now been admitted for acute in-hospital inpatient rehabilitation. PAST MEDICAL HISTORY: Includes diabetes mellitus type 2. HABITS: No history of tobacco or alcohol abuse. ALLERGIES: No known drug allergies. SOCIAL HISTORY: He was living in a house alone, apparently utilized a cane. Noted to be . There is a stepson and a nephew involved and there are multiple islam community members as he is very involved with his islam. The chart is noted to be setting up some kind of assistance for him. He is noted to have support from family, friends and islam, was independent prior to the hospital, 2-usman house, 1 bedroom on the main level. He was managing his own medications prior to hospitalization or his driving. Apparently, the islam community is working together to have 24-hour care in place when the patient is discharged home. It sounds like an RN is able to assist the patient and they [facility] [place] [address] [place] [address] HISTORY AND PHYSICAL Name: ROOPA WAY Room #: 359-P [facility] IN ..#: [id number] Admission: 10/09/19 Attend Phys: Mason aJson MD Discharge: Date of : [birth year] Report #: [id number] are open to home healthcare. REVIEW OF SYSTEMS: Did not offer any current complaints of chest pain, shortness of breath or abdominal discomfort. He does have a prior suprapubic catheter. PHYSICAL EXAMINATION: GENERAL: The patient was seen on 10/09/2019. He was pleasant. He is on heightened precautions with his prior positive COVID. The patient was alert, he was pleasant, follows basic 1-step commands. VITAL SIGNS: Temperature was 98.2, pulse 87, respirations 16, blood pressure 129/69. HEENT: Facies are symmetric. CHEST: He has decreased breath sounds throughout, diffuse. CARDIOVASCULAR: Sounded regular rate and rhythm. ABDOMEN: He is slender. Bowel sounds positive, nontender. He has the suprapubic catheter. EXTREMITIES: He has functional range of motion of the upper extremities, has some weakness with attempted testing. His strength is probably a grade 3 to 3+/5. With weakness and some clumsiness and he has difficulty trying to hold his arms away from his body for a prolonged period of time. His lower extremities, his strength is probably a grade 3+/5. DTRs are trace to 1. He has reasonably intact sensation to proprioception. He has been max assist for basic bed mobility. He was able to stand for 3 seconds with max assist on 10/08/2019 in physical therapy. ASSESSMENT: 1. Critical illness myopathy. 2. Recurrent hypoxic respiratory failure. Episode of prolonged intubation. 3. Severe acute respiratory syndrome, COVID-19 pneumonia, acute respiratory distress syndrome with recurrence. 4. Severe sepsis, resolved. 5. Urinary tract infection, treated. 6. Profound debilitation. 7. Diabetes mellitus type 2. 8. Deep venous thrombosis and gastrointestinal prophylaxis. PLAN: The patient has been admitted for acute in-hospital inpatient rehabilitation. He is being admitted under the CARES Act Waiver during the COVID-19 public health emergency and will likely not tolerate the 3 hours of therapy due to his deconditioned state. Our goal is to increase therapies as tolerated to a minimum of 3 hours per day. Initially, the patient will receive at least 90 minutes of therapy broken out with 30 minutes of PT, 30 minutes of OT and 30 minutes of speech per day. [address] [address] HISTORY AND PHYSICAL Name: ROOPA WAY Room #: 359-P ADM IN [facility]#: [id number] Admission: 10/09/19 Attend Phys: Mason Jason MD Discharge: Date of : [birth year] Report #: [id number] From a postadmission physician evaluation perspective, there are no relevant changes since the preadmission screening. Please see the above review of prior and current medical and functional conditions and comorbidities. Please see the patient's previous and current functional status. As far as risk of complications, the patient has multiple medical comorbidities as noted above. Initial plan of care involves the interdisciplinary acute inpatient rehabilitation program. Measurable functional goals would be for the patient to become modified independent with transfers, mobility, ADLs, so that he can hopefully return back to his prior living situation. Prognosis is reasonably good with estimated length of stay probably at least a number of weeks as he is very weak and debilitated. He needs to get to the point where he can achieve a level where there can be assistance in maintaining him in the home setting. Potential barriers would include his multiple medical comorbidities and decreased functional status. <ELECTRONICALLY SIGNED> By: Mason Jason MD 10/16/19 [id number] Mason Jason MD /nt
--- NOTE | 2019-10-16 18:35 | NUR ---
SPOKE WITH ID NURSE AND STATES PATIENT CAN BE TAKEN OFF ISOLATION. PT IS PREP. TO GO HOME NEXT WEEK POSSIBLY WITH HOME CARE. HE CONT TO IMPROVE HIS STRENGTH. HAD TWO BMS TODAY. ALERT ORIENTED X4. WILL CONT WITH PLAN OF CARE.
[2019-10-16 19:20] VITALS: BP 146/83
--- NOTE | 2019-10-16 23:01 | NUR ---
PT RESTING QUIETLY. VSS. DENIED PAIN. DENIED SOA. PT IN GOOD MOOD AND TALKATIVE. HS CARES DONE. MOISTURE BARRIER APPLIED TO SACRAL/ BUTTOCK WOUNDS. WOUND IS CLOSED AND HEALING WELL. SLEEPING MEDICATIONS GIVEM. NO S/S DISTRESS.
[2019-10-17 04:59] LABS: ABSOLUTE NEUTROPHILS 2.8 thou/uL (1.4-8.2); BASOPHILS 0.4 % (0.0-2.0); EOSINOPHILS 2.7 % (0.0-3.0); HEMATOCRIT 27.9 % (42.0-52.0); HEMOGLOBIN 9.1 gm/dL (14.0-18.0); LYMPHOCYTES 22.7 % (24.0-44.0); MCH 29.8 pg (26.0-34.0); MCHC 32.7 g/dL (28.0-37.0); MCV 91.1 fL (80.0-100.0); MONOCYTES 12.2 % (1.0-8.0); PLATELET COUNT 154 thou/uL (150-400); RBC 3.06 mil/uL (4.50-6.00); RDW 16.5 % (10.5-14.5); WBC 4.6 thou/uL (4.0-11.0)
[2019-10-17 05:33] LABS: CALCIUM 8.2 mg/dL (8.5-10.1); CREATININE 0.6 mg/dL (0.7-1.3); MAGNESIUM 1.6 mg/dL (1.8-2.4); POTASSIUM 3.8 mmol/L (3.5-5.1)
[2019-10-17 08:12] VITALS: BP 149/84
--- NOTE | 2019-10-17 16:03 | NUR ---
PT ASSESSED AT START OF SHIFT. IN GOOD SPIRITS. VERY CONVERSANT AND COGNITION INTACT. PT WEAK AND RT HAND SOMEWHAT TREMULOUS WHEN TRYING TO FEED HIMSELF SO USING LT HAND AND DOING BETTER. APPETITE FAIRLY GOOD. ASSISTED PT TO BSC X2 FOR BM-STOOL SOFT W/ SOME STREAKS OF BLOOD NOTED. DR. JIMENES TO BE NOTIFIED. PT STATES HE HAD BEEN HAVING THAT PER PREVIOUS REPORTS. PT UP TO THE RECLINER W/ ASSIST OF 2. VERY WEAK LEGS BUT GETTING STRONGER. THERAPIST HERE THIS AFTERNOON TO WORK W/ PT.
[2019-10-17 17:11] VITALS: BP 141/80
[2019-10-17 20:30] VITALS: BP 144/76
--- NOTE | 2019-10-17 22:12 | NUR ---
PT A&OX3 VSS AFEBRILE. HRR. LCTA AND UNLABORED ON RA. CEPACOL LOZENGE GIVEN FOR DRY THROAT AND MOUTH. H20 AND APPLE JUICE GIVEN PERPT REQUEST. DENIED PAIN. TRAZADONE AND MELATONIN GIVEN FOR SLEEP. MOISTURE BARRIER APPLIED TO BUTOCKS. WOUND IS HEALED BUT OINK SCARS ARE LEFT. TURNING P Q 2 HRS. PT PROGRESSING WELL TOWARDS D/C GOALS. HE IS ABLE TO HELP TURN HIMSELF IN BED BUT IS STILL WEAK.
--- NOTE | 2019-10-18 05:19 | NUR ---
PT IS PROGRESSING TOWARDS D/C GOALS. VSS. PT IS SLEEPING QUIETLY. NO C/O PAIN. NO SOA NOTED.ENCOUIRAGING PT TO DO ADLS MUCH HE CAN HIMSELF AND HELP TURN ETC.
[2019-10-18 08:17] VITALS: BP 146/87
--- NOTE | 2019-10-18 15:34 | NUR ---
ASSUMED CARE OF THE PT AT 0700. PT IS UP WITH ASSIST X2, TO BSC AND CHAIR WITH CHAIR ALARM ON. PT IS A&O X 3 SOMETIMES CONFUSED. Q2 TURNS. REDNESS ON SACRUM, BARRIER CREAM APPLIED, NO C/O PAIN AND NO DRAINAGE. VS NORMAL. REHAB ADL'S ARE UP IN CHAIR, FEEDING SELF AND LEG LIFTS. BM TODAY. L FOREARM IV DRY AND INTACT. HOURLY ROUNDING. LUNGS CLEAR, NO SWELLING IN BLE/ PREFLO BOOTS ON WHILE PT IN BED. NO TELE. CALL LIGHT WITHIN REACH AND BED IN LOWEST POSITION. WILL CONTINUE TO MONITOR THE PT.
[2019-10-18 17:18] VITALS: BP 144/78
[2019-10-18 19:28] VITALS: BP 147/84
--- NOTE | 2019-10-18 21:34 | NUR ---
PT PROGRESSING TOWARDS D/C GOALS. VSS AFEBRILE HRR. LUNGS CLEAR BUT DIMINSHED UNLABORED ON RA. NO EDEMA NOTED. ELIZABETH HS SNACK AND APPLE JUICE WELL. TRAZADONE GIVEN FOR SLEEP. NO S/S DISTRESS. HS CARES DONE.
--- NOTE | 2019-10-19 06:26 | NUR ---
Pt progressing towards d/c goals. VSS. Afebrile unlabored on RA. Pt had 1 lg stool last night. No skin breakdown noted. Pt eating and drinking appropriately. Resting quietly presently sleeping.
[2019-10-19 07:28] VITALS: BP 149/93
--- NOTE | 2019-10-19 09:30 | NUR ---
cm visited with ac via phone call. information passed on rt last week team meeting, agrees with cont rehab last week. " we are so grateful that he is making a come back, and know it will be slow. so grateful for nurses who care for him. he already has assistance with finances and can get someone to assist with medication if needed. we have been working on trying to set up missael so someone is with him"/ac. will cont following as needed for dc needs.
[2019-10-19 16:45] VITALS: BP 135/78
--- NOTE | 2019-10-19 18:20 | NUR ---
PT ARRIVED FROM 3W AT 1600. ALERT AND ORIENTED*4. PLEASANT AND TALKATIVE. DENIES PAIN AT THIS TIME. VITALS ARE STABLE. SUPRAPUBIC CATHETER REMAINS INTACT AND PATENT, URINE IS LIGHT YELLOW AND CLEAR. IV LEFT FORE DC'D R/T CLOTTING OFF. ABD SOFT AND ROUND, *1 BM THIS EVENING. UP WITH 2 MAX ASSIST, PIVOT TRANSFER. Q1H VISUAL CHECKS. CALL LIGHT WITHIN REACH. FALL PRECAUTIONS IN PLACE
[2019-10-19 19:44] VITALS: BP 137/90
--- NOTE | 2019-10-20 03:48 | NUR ---
ASSUMED CARE AROUND 1900, PT A&O X 4, NO ACUTE DISTRESS NOTED. VSS, O2 ON RA. PT DENIED ANY PAIN OR DISCOMFORT, TOLERATED MEDS WITH WATER. BG ACHS, NO SS NEDED AT HS. SUPRAPUBIC CATHETHER IN PLACE DRAINING CLEAR YELLOW URINE. CONTINENT, HAD BM X 1 THIS MORNING. PT ASLEEP, CALL LIGHT WITHIN REACH, WILL CONTINUE TO MONITOR PER POC.
[2019-10-20 07:20] VITALS: BP 154/95
--- NOTE | 2019-10-20 12:44 | NUR ---
team meeting recommendation: re team, early next week if insurance will auth, trying for anticipated dc 11/03/2019, with HH (pt, ot, st, nursing), 24hr supervision rt memory defects, mech soft thin. family or yazdanism family to assist with pills and bills.
--- NOTE | 2019-10-20 15:05 | NUR ---
ASSUMED CARE AT 1000. PATIENT IS ALERT AND ORIENTED X4. PATIENT FENTON'S, PERFORMANCE TESTER ARE EQUAL. PATIENT IS RESTING IN BED WITH CALL LIGHT IN REACH. PATIENT IS UP WITH ASSIST OF 1-2 STAFF, GAIT BELT , AND WALKER. PATIENT HAS SUPRAPUBIC CATHETER DRAINING KARLI COLORED URINE. FALL AND SAFETY PROTOCOLS IN PLACE. DENIES PAIN AT THIS TIME. CONTINUES TO PROGRESS SLOWLY TOWARDS D/C GOALS. WILL CONTINUE TO MONITER.
[2019-10-20 19:10] VITALS: BP 148/81
--- NOTE | 2019-10-21 05:58 | NUR ---
UP TO BSC WITH ASSIST OF TWO FOR SOFT LIGHT BROWN STOOL. SUPRAPUBIC CATHETER CONTINUES. LOW AIR LOSS THERAPY CONTINUOUS WHILE IN BED
[2019-10-21 07:30] VITALS: BP 145/87
--- NOTE | 2019-10-21 14:26 | NUR ---
ASSUMED CARES AT 0700. PT AWAKE, ALERT AND ORIENTED*3. FORGETFUL. C/O PENILE PAIN/ BURNING SENSATION THIS AM, WHEN RN WENT TO DRAW URINE FOR UA PT DENIED C/O PAIN/BURNING SENSATION AND STATED THAT HE MUST HAVE BEEN ASLEEP WHEN HE MENTIONED THAT. VITALS REMAIN STABLE. CATHETER REMAINS INTACT AND PATENT, URINE IS YELLOW AND CLEAR, NO FOUL ORDER. ABDOMEN SOFT AND ROUND, *2 LG SOFT BM. PT UP WITH 2 MAX ASSIST, GB AND WALKER. REPOSITIONED Q2H. Q1H VISUAL CHECKS. CALL LIGHT WITHIN REACH. FALL PRECAUTIONS IN PLACE. PT STATED THAT WHEN HE WAS DOWNSTAIRS SOME PUSHED AN IV TO HARD INTO HIS SKIN AND THE NEEDLE BENT AND THE HE WAS SCREAMING IN PAIN. NOODY APOLOGISED FOR IT AND THE PT FELT VIOLATED. NURSE CHIEF NURSE EXECUTIVE NOTIFIED, HAD A TALK WITH PT.
[2019-10-21 15:24] LABS: URINE BILIRUBIN NEGATIVE (Negative); URINE BLOOD 2+ (Negative); URINE CLARITY CLEAR; URINE COLOR YELLOW; URINE GLUCOSE-RANDOM* 1+ (Negative); URINE KETONES NEGATIVE (Negative); URINE NITRITE-REFLEX NEGATIVE (Negative); URINE PROTEIN (DIPSTICK) TRACE (Negative); URINE SPECIFIC GRAVITY 1.015 (1.005-1.035); URINE UROBILINOGEN 0.2 E.U./dl (0.2-1.0)
[2019-10-21 15:28] LABS: URINE LEUKOCYTES-REFLEX 3+ (Negative)
[2019-10-21 15:41] LABS: YEAST-REFLEX Present (None Seen)
[2019-10-21 15:42] LABS: BACTERIA-REFLEX 1-9 Few /HPF (None Seen); CASTS None Seen /LPF (None Seen); CRYSTALS None Seen /LPF (None Seen); SQUAMOUS None Seen /LPF (0-3); URINE RBC 0-2 Rare /HPF (0-2); URINE WBC-REFLEX 6-15 Few /HPF (0-5)
[2019-10-21 15:50] VITALS: BP 145/87
--- NOTE | 2019-10-21 15:51 | NUR ---
FAXED REFERRAL TO [facility] SPOKE WITH DEONNA IN INTAKE AND SHE RECEIVED REFERRAL AND WILL ACCEPT AT [facility]. DP TO FOLLOW.
[2019-10-21 19:09] VITALS: BP 147/87
--- NOTE | 2019-10-22 04:28 | NUR ---
ASSUMED CARE AT APPROX 1900 EVENING 10/20. PT LYING IN BED WITH HEAD OF BED ELEVATED RESTING WITH NECK PILLOW IN PLACE. PT ALERT AND ORIENTED X4, APPROPRIATE AND COOPERATIVE. SUPRAPUBIC CATHETER IN PLACE WITH CLEAR, YELLOW URINE IN BAG. PT STATED HE FELT HE WAS MAKING PROGRESS WITH THERAPY. PT TOOK HS MEDS WITH WATER TOLERATING WELL. PT TURN Q2 AND REPOSITIONED. PT APPEARS TO BE SLEEPING SOUNDLY WITH HOURLY ROUNDING CHECKS. BED ALARM ON AND CALL LIGHT IN REACH. WILL CONTINUE TO MONITOR.
[2019-10-22 08:00] VITALS: BP 137/89
--- NOTE | 2019-10-22 14:40 | NUR ---
ASSUMED CARES AT 0700. PT AWAKE, ALERT AND ORIENTED TO PERSON, PLACE AND SITUATION. C/O LOW BACK PAIN, HEATING PAD ORDERED AND PLACED ON LOWER BACK. PT STATED THAT HE FEELS BAD NOONE IS DOING ANYTHING REGARDING WHAT HE WENT THROUGH WITH IV INSERTION A WEEK AGO THAT CAUSED HIM ALOT OF PAIN. FERNANDO REMAINS INTACT AND PATENT, URINE IS LIGHT YELLOW AND CLEAR. SCAB ON LEFT FOREARM HEALING. PT REPOSITIONED Q2H AND PRN. UP WITH 2 MAX ASSIST, GB AND WALKER. Q1H VISUAL CHECKS. CALL LIGHT WITHIN REACH. FALL PRECAUTIONS IN PLACE
[2019-10-22 20:00] VITALS: BP 144/75
--- NOTE | 2019-10-23 03:38 | NUR ---
PATIENT SITTING UP IN BED WITH WARM KPAD TO BACK FOR COMFORT. PATIENT HAS VOICED CONCERNS TONIGHT ABOUT PAYING FOR THIS HOSPITAL STAY AND IS WORRIED ABOUT IT. SPOKE WITH PATIENT AND TRIED TO ENCOURAGE HIM AND LISTEN TO HIM. HE HAS BEEN COOPERATIVE AND PLEASANT OTHERWISE. PATIENT IS ASSIST X 1-2 WITH TRANSFERS. HE HAS HAD A SOFT BM TONIGHT. HE DENIES PAIN. HE HAS ACHS GLUCOSE CHECKS AND GLUCOSE WAS 161 AT 2200. PT IS SS AND 3U LISPRO SQ GIVEN. HIS VSS. PT HAS SUPRAPUBIC CATHETER THAT IS INTACT AND PATENT. DRAINING LIGHT YELLOW URINE. PATIENT IS TURNED Q 2 HOURS. TURNED JUST NOW TO LEFT SIDE. LCTA. PATIENT DOES HAVE SLIGHT TREMORS IN HANDS. HE IS EXTREMELY SCARED OF FALLING AND SHAKES WHEN HE FIRST STANDS UP. PATIENT WAS UP TO THE [facility] X 1 TONIGHT FOR BM. PATIENT TOOK MEDS WITH WATER WITHOUT INCIDENT. HE HAD HS SNACK OF CRACKERS AND PEANUT BUTTER AND SARDINES. PATIENT HAS HAD 2 NEGATIVE COVID19 TESTS AND HIS TEMP IS 98.1 AND HE DOES NOT HAVE A COUGH. BED IN LOW POSITION AND SIDERAILS UP X3. ROUTINE ROUNDS TO ASSESS FOR SAFETY AND STATUS.
[2019-10-23 08:00] VITALS: BP 162/92
--- NOTE | 2019-10-23 10:24 | NUR ---
ASSUMED CARES AT 0700. REPORTS SLEPT GOOD LAST NIGHT.PT AWAKE, ALERT AND ORIENTED TO PERSON, PLACE AND SITUATION. ABLLE TO VOICE HIS NEEDS. ANXIOUS ABOUT HIS MEDICAL BILL. MELANI GRAHAM, RISK MANAGEMENT WILL COME TO TALK WITH PT TODAY. C/O LOW BACK PAIN, HEATING PAD ORDERED AND PLACED ON LOWER BACK. NOTIFIED ARABELLA TO OBTAIN VOLATRENE GEL. PT REPOSITIONED Q2H AND PRN. HAS OLD WOUND ON SACRUM HEALED. LOW AIR MATRESS AND PRAPO BOOST USING WHEN PT IN BED. UP WITH 1- 2 MAX ASSIST, GB AND WALKER. OFFERED SUPPORTIVE CARE. ENCOURAGE PT TO VOICE HIS NEED. ST WORKED WITH PT THIS AM, PT TOLERATES WELL WITH MED ONE AT THE TIME WITH APPLE SAUCE. CONTINUE TO BE 90 DEGREE WHEN EATING. Q1H VISUAL CHECKS. CALL LIGHT WITHIN REACH. FALL PRECAUTIONS IN PLACE UP AND WALKING WITH PHYSICAL THERAPIST AT THIS MOMENT.
[2019-10-23 19:25] VITALS: BP 148/71
--- NOTE | 2019-10-24 03:05 | NUR ---
ASSUMED CARE AROUND 1900, PT A&O X 4, NO ACUTE DISTRESS OVERNIGHT. VSS, O2 ON RA. PT DENIES ANY PAIN OR DISCOMFORT DURING SHIFT. MEDS GIVEN PER ORDERS. BG ACHS SS FOR BG 176 AT HS, RECEIVED [address] PL[address] DRAINING CLEAR YELLOW URINE, BM DURING SHIFT. PT PREFERRED TO SLEEP IN RECLINER, STATED THAT IT WAS MORE COMFORTABLE THAN THE BED, CALL LIGHT WITHIN REACH AND TURNED Q2H, WILL CONTINUE TO MONITOR PER POC.
[2019-10-24 06:16] LABS: ABSOLUTE NEUTROPHILS 4.3 thou/uL (1.4-8.2); BASOPHILS 0.8 % (0.0-2.0); EOSINOPHILS 2.1 % (0.0-3.0); HEMATOCRIT 30.7 % (42.0-52.0); LYMPHOCYTES 19.3 % (24.0-44.0); MCH 29.2 pg (26.0-34.0); MCHC 32.7 g/dL (28.0-37.0); MCV 89.2 fL (80.0-100.0); PLATELET COUNT 213 thou/uL (150-400); POLYS 66.8 % (36.0-66.0); RBC 3.44 mil/uL (4.50-6.00); RDW 16.5 % (10.5-14.5); WBC 6.5 thou/uL (4.0-11.0)
[2019-10-24 06:41] LABS: CALCIUM 8.6 mg/dL (8.5-10.1); CREATININE 0.8 mg/dL (0.7-1.3); MAGNESIUM 2.1 mg/dL (1.8-2.4); POTASSIUM 3.7 mmol/L (3.5-5.1)
[2019-10-24 08:19] VITALS: BP 156/85
--- NOTE | 2019-10-24 12:00 | NUR ---
ASSUMED CARES AT 0700. PT WAS RESTING IN RECLINER LAST NIGHT. PT C/O RIGHT SHOUDER PAIN AND BACK PAIN. PRN TYLENOL AND VOLTAREN GEL APPLIED. PT AWAKE, ALERT AND ORIENTED*3. FORGETFUL. C/O PENILE PAIN/ BURNING SENSATION. DR. DYER CAME TALKED WITH PT AND ORDER FOR UA WITH CULTURE. VITALS REMAIN STABLE. CATHETER REMAINS INTACT AND PATENT, URINE IS YELLOW AND CLEAR, NO FOUL ORDER. ABDOMEN SOFT AND ROUND,HAD SOFT BM. CONTINUE TO TAKE MIRALAX AND COLACE DAILY. PT UP WITH MOD ASSIST, GB AND WALKER. PT PARTICIPATED WITH THERAPY THIS AM. Q1H VISUAL CHECKS. CALL LIGHT WITHIN REACH. FALL PRECAUTIONS IN PLACE.
[2019-10-24 15:05] LABS: URINE BILIRUBIN NEGATIVE (Negative); URINE BLOOD NEGATIVE (Negative); URINE CLARITY CLEAR; URINE COLOR YELLOW; URINE GLUCOSE-RANDOM* TRACE (Negative); URINE KETONES NEGATIVE (Negative); URINE LEUKOCYTES TRACE (Negative); URINE NITRITE NEGATIVE (Negative); URINE PROTEIN (DIPSTICK) 1+ (Negative); URINE SPECIFIC GRAVITY >= 1.030 (1.005-1.035); URINE UROBILINOGEN 0.2 E.U./dl (0.2-1.0)
[2019-10-24 15:19] LABS: BACTERIA None Seen /HPF (None Seen); CASTS None Seen /LPF (None Seen); CRYSTALS None Seen /LPF (None Seen); SQUAMOUS 0-3 Few /LPF (0-3); URINE RBC 0-2 Rare /HPF (0-2); URINE WBC 6-15 Few /HPF (0-5); YEAST Present (None Seen)
[2019-10-24 19:41] VITALS: BP 137/84
--- NOTE | 2019-10-25 03:11 | NUR ---
SUPRAPUBIC CATHETER CONTINUES, ONE PERSON ASSIST TO STAND PIVOT FROM BSC AND ANOTHER TO WIPE AFTER BM. TURNED SIDE TO SIDE AND LOW AIR LOSS MATTRESS AND PILLOW UNDER SIDE AND BOTTOM FOR COMFORT WELL. TAKING SIPS OF COLD WATER WITHOUT USING STRAW. TYLENOL FOR C/O RIGHT GROIN PAIN, HEATING PAD TO BACK, AND VOLTAREN GEL TO NECK. ALSO USES NECK SUPPORT PILLOW.
[2019-10-25 07:30] VITALS: BP 154/99
--- NOTE | 2019-10-25 14:30 | NUR ---
ASSUMED CARES AT 0700. PT AWAKE, ALERT AND ORIENTED*4.VITALS REMAIN STABLE. PT C/O RIGHT GROIN AND CATHETER SITE PAIN, "I WAS SUPPOSED TO HAVE THE CATHETER REPLACED IN JUL[place] AND THAT NEVER HAPPENED BECAUSE I WAS HERE. ITS BEEN 4 MONTHS AND IT HURTS. I CALLED MY DOCTOR BUT HE IS NOT A UROLOGIST AND THEY TOLD ME TO WAIT TILL SATURDAY TO HAVE IT CHANGED"/SEAMUS. SUPRAPUBIC SITE CLEANED. CATHETER REMAINS INTACT AND PATENT, URINE IS LIGHT YELLOW AND CLEAR. VOLTAREN GEL APPLIED TO RIGHT SHOULDER, TYLENOL ADMINISTERED NEEDED. PT UP WITH 1 MOD ASSIST, GB AND WALKER. UP IN THE CHAIR/RECLINER FOR MEALS, REPOSITIONED Q2H AND PRN. Q1H VISUAL CHECKS. CALL LIGHT WITHIN REACH. FALL PRECAUTIONS IN PLACE
[2019-10-25 19:47] VITALS: BP 149/50
--- NOTE | 2019-10-26 03:53 | NUR ---
ASSUMED CARE AROUND 1900, PT A&O X 4, NO ACUTE DISTRESS OVERNIGHT. VSS, O2 ON RA. TYLENOL GIVEN FOR R RAPHAEL PAIN WITH ADEQUATE RELIEF. MEDS GIVEN PER ORDERS, TOLERATED WELL. CONTINENT OF B&B, USES URINAL, NO BM OVERNIGHT. PT RESTING, CALL LIGHT WITHIN REACH, WILL CONTINUE TO MONITOR PER POC.
[2019-10-26 09:32] VITALS: BP 166/91
--- NOTE | 2019-10-26 15:04 | NUR ---
cm notified little earlier in day at dr asia burnette had questions. cm called her back, she wanted to know if there was confirmed dc date and what to do with abel?"/yomaira. education that thought that he will follow up out with his urology to have cath changed out and would anticipate that in this weeks team meeting there will be dc date set. " ok thank you "/ dr burnette.
[2019-10-26 16:55] VITALS: BP 116/75
--- NOTE | 2019-10-26 18:17 | NUR ---
PT ALERT AND ORIENTED TIMES FOUR. BP ELEVATED THIS MORNING BETTER AFTER MORNING MEDICAIONS GIVEN. OTHER VSS. SUPRAPUBIC CATHETER IN PLACE TO DD. PT DENIES PAIN/SOA. PT TOLERATES MEDS AND MEALS. PT WORKED WELL WITH PT/OT THIS SHIFT, SITTING UP IN THE CHAIR FOR MOST OF THE DAY. PT PROGRESSING TOWRADS POC GOALS.
[2019-10-26 19:12] VITALS: BP 127/70
--- NOTE | 2019-10-27 01:09 | NUR ---
PT ALERT AND ORIENTED X 4. UP TO BSC WITH MOD ASSIST X 2. PT HAD SOFT BM WITH STREAKS OF BLOOD NOTED. JOSE OQUENDO NP NOTIFIED WITH ORDERS RECEIVED. SUPRAPUBIC CATH INTACT DRAINING ADEQUATE AMTS CLEAR ORANGE URINE. PT STARTED ON PYRIDIUM YESTERDAY. PT DENIES PAIN OR DISCOMFORT. BED ALARM ON FOR SAFETY. PT APPEARS TO BE SLEEPING ON HOURLY ROUNDS.
[2019-10-27 05:18] LABS: HEMATOCRIT 30.2 % (42.0-52.0); HEMOGLOBIN 9.9 gm/dL (14.0-18.0); MCH 28.8 pg (26.0-34.0); MCHC 32.8 g/dL (28.0-37.0); MCV 87.8 fL (80.0-100.0); RBC 3.44 mil/uL (4.50-6.00); RDW 16.6 % (10.5-14.5); WBC 8.8 thou/uL (4.0-11.0)
[2019-10-27 07:30] VITALS: BP 165/87
--- NOTE | 2019-10-27 14:18 | NUR ---
team meeting, recommendation: gi consult rt positive occult stool. he c/o right hand and wrist discomfort and has decline in adls. pt questions that cath not going to be changed out. dc 18 hh ( pt, ot, st, bath aid, nursing and sw). no driving until cleared by pcp. family to get hand rails on stairs if he doesnt area have them at home. family assist with pills and bills. family to missael training with therapy on next saturday or saturday 17. might require fww if she doesnt already have one. no driving. will need initial 24 hr supervision and frequent check. hh (pt, ot, st, and nursing), benefit from life alert. st going try 5cc proval flow cup then getting cxr. will cont following as needed for dc needs.
--- NOTE | 2019-10-27 17:43 | NUR ---
ASSUMDED CARE AT 0700. PATIENT IS ALERT AND ORIENTED X4. PATIENT HAS PAIN AND SLIGHT AMOUNT OF SWELLING IN HIS RIGHT HAND AND WRIST. LUNGS ARE CLEAR. ABD IS SOFT WITH BSX4. PATIENT IS UP TO THE BSC TO VOID AND HAVE BM. STOOL FOR OCCULT BLOOD OBTAINED. RESULTS SHOWED + FOR BLEED. DR. ARIZA OF [facility]. CONSULTED. COREY CERVANTES NP FROM [facility] HERE TO SEE PATIENT. FALL AND SAFETY PROTOCOLS IN PLACE. DENIES PAIN AT THIS TIME. CONTINUES TO PROGRESS TOWARDS D/C GOALS. WILL CONTINUE TO MONITER.
[2019-10-27 18:32] LABS: CALCIUM 8.9 mg/dL (8.5-10.1); CREATININE 0.9 mg/dL (0.7-1.3); POTASSIUM 4.5 mmol/L (3.5-5.1); URIC ACID* 4.2 mg/dL (3.5-7.2)
[2019-10-27 19:38] VITALS: BP 117/58
--- NOTE | 2019-10-28 02:02 | NUR ---
PATIENT HAS TREMORS IN HANDS, MORE ON THE RIGHT SIDE, HENCE HE IS USING HIS LEFT HAND TO HOLD CUP. DENIES PAIN ANYWHERE ELSE AMD DOES NOT WANT HEATING PAD, VOLTAREN GEL, OR TYLENOL TONIGHT. DECLINED MIRALAX HE HAD 2 SMALL SOOLS 10/26. SUPRAPUBIC CATHETER TO DD PATENT AND DRAINING. INSULIN 3 UNITS AT HS FOR BLOOD SUGAR EQUAL TO 175, GUESSING THAT HE WILL NOT NEED TO GO HOME WITH INSULIN, HE ASKS.
[2019-10-28 06:51] LABS: HEMATOCRIT 30.7 % (42.0-52.0); MCHC 32.6 g/dL (28.0-37.0); RBC 3.45 mil/uL (4.50-6.00); RDW 16.5 % (10.5-14.5); WBC 8.7 thou/uL (4.0-11.0)
[2019-10-28 08:00] VITALS: BP 134/74
--- NOTE | 2019-10-28 10:37 | NUR ---
ASSUMED CARE AT 0700. PATIENT IS ALERT AND ORIENTED X4. PATIENT HAS PAIN AND SWELLING IN HIS RIGHT HAND. PATIENT IS MAX ASSIST TO CHAIR WITH GAIT BELT AND WALKER AND BSC. PATIENT HAS SUPRAPUBIC CATHETER THAT IS PATENT AND INTACT, DRAINING KARLI COLORED URINE. PATIENT HAS S.P. CATHETER R/T RETENTION. PLAN HAND XR TODAY. FALL AND SAFETY PROTOCOLS IN PLACE. C/O PAIN IN HIS RIGHT HAND. PATIENT GIVEN PRN PAIN MED. PATIENT ASSISTED TO RECLINER FRON HIS BED WITH MAX ASSOST. WILL CONTINUE TO MONITER.
--- NOTE | 2019-10-28 14:38 | NUR ---
FAXED REFERRAL TO [facility] SPOKE WITH CELINA IN INTAKE THEY ARE OON WITH PT'S INSURANCE. PT WAS ACCEPTED FOR HH WITH [facility] REFERRAL FAXED ON 10/20. SW TO NOTIFY PT THAT [facility] CANNOT ACCEPT AND THAT [facility] CAN. DP TO FOLLOW.
[2019-10-28 19:14] VITALS: BP 130/70
--- NOTE | 2019-10-29 00:20 | NUR ---
PT ALERT AND ORIENTED X 4. SUPRAPUBIC CATH PATENT DRAINING ADEQUATE AMTS CLEAR YELLOW URINE. PT C/O PAIN IN RIGHT HAND. TYELNOL GIVEN ORDERED. RIGHT HAND SWOLLEN. ELEVATED ON PILLOWS. PT UNCOMFORTABLE IN BED. TRANSFERRED TO RECLINER AT MIDNIGHT. PT CALLS OUT FREQUENTLY FOR VARIOUS THINGS. CHAIR ALARM ON FOR SAFETY. PT CHECKED ON HOURLY ROUNDS.
[2019-10-29 08:00] VITALS: BP 128/84
--- NOTE | 2019-10-29 13:34 | NUR ---
received phone call from nasir he had question on what all insurance covers, if it covered private cg in the home and hh. re-education that private duty is not covered by and hh is. hh is not life time usually and 24hr cg could benefit from some therapy training. asked if therapy had called him yet to set that up " no think so but i did miss 1 phone call and havent listen to the message yet. thank you just have therapy call to set up meeting time"/nasir. cm spoke with bedside nurse to pass on that therapy needs to contact nasir.
--- NOTE | 2019-10-29 15:16 | NUR ---
ASSUMED CARE AROUND 0700, PT A&O X 4, NO ACUTE CHANGES NOTED. VSS, 02 ON RA. PT C/O PAIN TO R HAND, R HAND IS SWOLLEN AND WARM TO TOUCH, PROVIDER AWARE AND VOLTERAN GEL APPLIED TO AREA WITH SOME RELIEF. BG ACHS, SS 3 UNITS GIVEN THIS AM FOR 151. MEDS GIVEN PER ORDERS, TOLERATED WELL. CONTINENT OF B&B, SPC IN PLACE DRAINING CLEAR YELLOW URINE. PT HAD MODERATE SOFT BM TODAY, BM NOTED TO HAVE BLOOD, GI NOTIFIED AND WILL FOLLOWUP, NO NEW ORDERS GIVEN. PT SITTING IN RECLINER, CALL LIGHT WITHIN REACH, WILL CONTINUE TO MONITOR PER POC.
[2019-10-29 20:25] VITALS: BP 150/89
--- NOTE | 2019-10-30 04:12 | NUR ---
10/29/19 ASSUMED CARE OF PT AT 1900 AFTER BEDSIDE REPORT 2100 BASELINE ASSESSMENT COMPLETED, AND NO CHANGES FROM PREVIOUS SHIFT NOTED, PT AWAKE ALERT AND ORIENTED WITH PAINFUL R HAND, ELEVATED ON PILLOW. FALL PRECAUTIONS IN PLACE, SUPRAPUBIC CATH DRAINING WITHOUT DIFFICULTY, WILL CONTINUE TO MONITOR
[2019-10-30 09:00] VITALS: BP 128/86
[2019-10-30 09:11] LABS: ABSOLUTE NEUTROPHILS 7.3 thou/uL (1.4-8.2); EOSINOPHILS 0.8 % (0.0-3.0); HEMATOCRIT 33.7 % (42.0-52.0); LYMPHOCYTES 12.7 % (24.0-44.0); MCH 28.5 pg (26.0-34.0); MCHC 32.7 g/dL (28.0-37.0); MCV 87.1 fL (80.0-100.0); MONOCYTES 11.4 % (1.0-8.0); PLATELET COUNT 212 thou/uL (150-400); POLYS 74.1 % (36.0-66.0); RBC 3.86 mil/uL (4.50-6.00); RDW 16.8 % (10.5-14.5); WBC 9.8 thou/uL (4.0-11.0)
[2019-10-30 09:23] LABS: CALCIUM 8.9 mg/dL (8.5-10.1); CREATININE 0.7 mg/dL (0.7-1.3); POTASSIUM 4.1 mmol/L (3.5-5.1)
--- NOTE | 2019-10-30 12:06 | NUR ---
ASSUMED CARE AT 0700. PATIENT IS ALERT AND ORIENTED X4. PATIENT FENTON'S, PATIENT RIGHT HAND PAINFUL AND SLIGHTLY EDEMATOUS. PLAN MRI LATER TODAY. LUNGS ARE CLEAR. ABD IS SOFT WITH BSX4. PATIENT HAS S.P. CATHETER DRAINING KARLI COLORED URINE. UP IN THE CHAIR WITH MAX OF 1-2 STAFF AND Gait belt. FALL AND SAFETY PROTOCOLS IN PLACE. C/O PAIN MEDICATED WITH PRN PAIN MED. CONTINUES TO PROGRESS SLOWLY TOWARDS D/C GOALS. WILL CONTINUE TO MONITER.
--- NOTE | 2019-10-30 12:28 | NUR ---
Nutrition followup: pt continues to eat very well on rehab unit, 75-100% of meals, 100% supplements TID, (ensure pudding/glucerna). Weights vary but relatively stable. BG 142-227. Change to low nutrition risk.
--- NOTE | 2019-10-30 20:00 | NUR ---
LAB UNABLE TO PROCESS ALL ORDERS FROM WRIST ASPIRATION DUE TO LIMITED SAMPLE. CRISTHIAN CROOK LICENSED SALES PRODUCER GAMEPLAY PROGRAMMER INSTRUCTS ME TO HAVE LAB LOOK FOR CRYSTALS FIRST, THEN GRAM STAIN.
[2019-10-30 20:20] VITALS: BP 137/92
[2019-10-30 21:02] LABS: BF CRYSTALS No Crystals seen; SOURCE WRIST
--- NOTE | 2019-10-31 02:35 | NUR ---
HYDROCODONE, THEN TYLENOL FOR C/O RUE PAINS. NOT TOLERATING TURN TO RIGHT SIDE AT ALL, SO WE HAVE TURNED HIM LEFT TO BACK TO LEFT TONIGHT. SUPRAPUBIC CATHETER DRAINING. UP TO BSC FOR MODERATE FORMED BROWN STOOL
[2019-10-31 10:42] VITALS: BP 168/99
--- NOTE | 2019-10-31 12:43 | NUR ---
ASSUMED CARE AROUND 0700, PT A&O X 4, NO ACUTE DISTRESS DURING SHIFT. VSS, O2 ON RA. PT CONTINUES TO HAVE PAIN TO R HAND, WARM TO TOUCH AND SWOLLEN, PAIN RELIEF WITH PRN NORCO AND TYLENOL, ALSO HAS VOLTERAN GEL. BG ACHS SS NEEDED. MEDS GIVEN PER ORDERS, GOOD APPETITE. SPC FERNANDO IN PLACE DRAINING CLEAR YELLOW URINE. BM THIS MORNING/ON LATASHA MIRALAX BID. PT RESTING IN BED, CALL LIGHT WITHIN REACH, WILL CONTINUE TO MONITOR PER POC.
--- NOTE | 2019-10-31 13:38 | HC ---
[facility] [place] [address] CONSULTATION Name: ROOPA WAY Room #: 510-P [facility] IN .R.#: [id number] Admission: 10/09/19 Attend Phys: Mason Jason MD Discharge: Date of : [birth year] Report #: [id number] THIS REPORT FOR: cc: ISAURO Garcia family physician/PCP ISAURO Garcia family physician/PCP Getachew Franco. PhD ~ CC: Mason BOX physician/PCP DATE OF SERVICE: 10/26/2019 ATTENDING PHYSICIAN: Mason Jason MD MATERIAL PLANNER: Getachew Franco, PhD AGE: 89. CLINICAL PRESENTATION: The patient is an 89-year-old -[place]egalese male admitted to the hospital on 08/17/2019 with weakness, cough and chills. The patient was noted to have acute respiratory failure and community-acquired pneumonia. He was COVID positive. The patient had a code blue necessitating intubation and ventilator placement on 08/22/2019. He was intubated through 09/16/2019. The patient was treated for bilateral pneumonia, severe sepsis and UTI. His treatment utilized hydroxychloroquine and azithromycin. His diagnosis on admission to the rehab unit included critical illness myopathy; recurrent hypoxic respiratory failure; severe acute respiratory syndrome; COVID-19 pneumonia; acute respiratory distress syndrome with recurrent; severe sepsis, resolved; urinary tract infection, treated; profound debilitation; diabetes mellitus type 2 and deep venous thrombosis and gastrointestinal prophylaxis. A complete description of his medical condition and history can be found in his medical record. Neuropsychological consultation was requested to provide assistance in the assessment of cognitive and emotional status and to provide recommendations and services. Prior to this most recent hospitalization and medical event, he was living independently in his own home. The patient was driving and independent with instrumental activities of daily living. He reports having been employed as a [employer]. He is a college graduate and completed Doctor of Divinity degree. He is . The patient has no children. He relies on a grandson from his second marriage, who provides additional support. TECHNIQUES UTILIZED: Clinical interview, review of medical records, staff consultation and behavioral observation, mini mental status exam 2 standard [facility] [address] [place] [address] CONSULTATION Name: ROOPA WAY Room #: 510-P [facility] IN ..#: [id number] Admission: 10/09/19 Attend Phys: Mason Jason MD Discharge: Date of : 09[birth year] Report #: [id number] version, verbal fluency assessment and brief abstract reasoning test. EXAMINATION FINDINGS: The patient was alert and cooperative with the assessment. He was able to describe the reason for his hospitalization. He does not report auditory or visual hallucinations. There is no evidence of thought disorder. He does not show symptoms of aphasia. The patient describes his symptoms to include variability in memory and difficulty with sleep. He does not report anxiety or depression. Performance on the MMSE 2 BV is in the borderline range at the 8th percentile with a T score of 36. Deficits in memory are suggested. Performance on the MMSE 2 SV is in the borderline range with a percentile rank of 4 and a T score of 32 Deficits are noted in concentration and visual-spatial construction. Verbal fluency assessment shows letter fluency in the low average range with a T score of 43 and percentile rank of 24. Category fluency is in the borderline range with a t score of 36 and percentile rank of 8. Total fluency is in the low average range with a t score of 40 and percentile rank of 16. He was 4 of 8 on a brief abstract reasoning test, suggesting impariment in executive functioning. He has been showing memory deficits during therapies. Pre-moribd functioning was likely to be very high as he obtained a doctoral of divinity degree and living independently prior to his Covid 19 infection. DIAGNOSTIC IMPRESSION: Major Neurocognitive Disorder (Dementia), Unspecified, Mild Severity RECOMMENDATINS: Patient will very likely require assistaince with medical, financial and nutritional management upon discharge to maintain safety. The use of compensatory strategies for variability in cognition will be helpful to assist adjustment. Thank you for allowing me to provide an assessment on this patient. Getachew Franco, PhD. ABN Licensed Psychologist <ELECTRONICALLY SIGNED> By: Getachew Franco, PhD 10/31/19 [id number] Getachew Franco, PhD /nt
[2019-10-31 19:35] VITALS: BP 93/52
--- NOTE | 2019-11-01 01:44 | NUR ---
ASSESSMENT: PT REMAIN ALERT AND ORIENT TIMES THREE. UP IN CHAIR AT SHIFT CHANGE. DID GET IN BED AT APPROXIMATELY 0030. PT HAD A LARGE FOUL BM. PAIN MEDS GIVEN SCHEDULED. VSS, AFEBRILE. C/O RIGHT HAND HURTING AND THAT HYDROCODONE IS HELPING SOME. VOLTAREN GEL RUBBED ON HAND PRN. GI AWARE OF BLOOD IN STOOL. TOLERATING PO INTAKE. UP WITH MAX ASSIST AND ROLLER WALKER. SLOW PROGRESS TOWARDS DC GOAL. WILL CONTINUE TO MONITOR.
[2019-11-01 05:46] LABS: HEMATOCRIT 31.5 % (42.0-52.0); HEMOGLOBIN 10.4 gm/dL (14.0-18.0)
--- NOTE | 2019-11-01 07:46 | NUR ---
ASSUMED CARE AT 0700. PATIENT IS ALERT AND ORIENTEDX4. PATENT HAS RIGHT HAND SWELLING AND PAIN. ICE APPLIED. LUNGS ARE CLEAR , ABD IS SOFT WITH BSX4. PATIENT HAS SUPRAPUBIC CATHETER DRAINING KARLI COLORED URINE. UP IN BED FOR BREAKFAST. FALL AND SAFETY PROTOCOLS IN PLACE. C/O PAIN IN HIS RIGHT HAND. PATIENT WAS MEDICATED WITH PRN PAIN MED. CONTINUES TO PROGRESS SLOWLY TOWARDS D/C GOALS. WILL CONTINUE TO MONITER.
[2019-11-01 08:00] VITALS: BP 165/93
[2019-11-01 19:22] VITALS: BP 154/88
--- NOTE | 2019-11-02 02:58 | NUR ---
RIGHT HAND SWOLLEN AND PAINFUL, ELEVATED ON PILLOWS WITH ICE AND VOLTAREN GEL APPLIED. UP TO BEDSIDE COMMODE WITH MAX ASSIST PATIENT IS UNABLE TO STAND UP STRAIGHT. SWALLOWS PILLS A FEW AT A TIME. APPRECIATES EXTRA PILLOWS TO PROP UP NECK. HYDROCODONE AND TYLENOL REQUESTED FOR PAIN
[2019-11-02 07:45] VITALS: BP 113/74
[2019-11-02 09:49] LABS: HEMATOCRIT 33.4 % (42.0-52.0); HEMOGLOBIN 10.9 gm/dL (14.0-18.0); MCH 28.5 pg (26.0-34.0); MCHC 32.5 g/dL (28.0-37.0); MCV 87.7 fL (80.0-100.0); RBC 3.81 mil/uL (4.50-6.00); RDW 16.3 % (10.5-14.5); WBC 9.7 thou/uL (4.0-11.0)
[2019-11-02 11:26] LABS: CALCIUM 9.2 mg/dL (8.5-10.1); CREATININE 0.8 mg/dL (0.7-1.3); MAGNESIUM 1.8 mg/dL (1.8-2.4); POTASSIUM 3.9 mmol/L (3.5-5.1)
--- NOTE | 2019-11-02 15:33 | NUR ---
received phone call from felix, concern about his hand and coming home with it like that?, some of 24hr care givers have backed out so been talk about [facility], had other go there in past."/felix. education that will have medical question and skilled be address by md or nurse discharge.
--- NOTE | 2019-11-02 16:21 | NUR ---
ASSUMED CARE AROUND 0730, PT A&O X 4, NO ACUTE DISTRESS NOTED. VSS, O2 ON RA. PT C/O PAIN TO R HAND, GIVEN PRN TYLENOL WITH SOME RELIEF. MEDS GIVEN PER ORDERS. BG ACHS SS NEEDED. CONTINENT OF B&B, FERNANDO IN PLACE DRAINING CLEAR YELLOW URINE, PT HAD SMALL BM WITH BLOOD, GI NOTIFIED AND CBC ORDERED. PT RESTING IN RECLINER, CALL LIGHT WITHIN REACH, WILL CONTINUE TO MONITOR PER POC.
[2019-11-02 20:09] VITALS: BP 122/69
--- NOTE | 2019-11-03 03:33 | NUR ---
ASSUMED CARE OF PT AT 1930 ON 11/02/19. PT IS A&OX4. IS ON ROOM AIR. REPORTS PAIN IN RIGHT HAND THAT IS BEING MANAGED WITH PAIN MEDS & COLD THERAPY. ELEVATED ON PILLOW. PT IS SCHEDULED FOR SUGERY THIS AM. HAS BEEN NPO SINCE BEFORE 2300. CONSENT SIGNED & IN CHART. IV STARTED IN LEFT FOREARM, 22 GUAGE. VANCO ADMINISTERED. PT HAS HAD BLOOD NOTED BLOOD IN STOOLS. PROVIDER IS AWARE ACCORDING TO DAY NURSE. RECTAL SUPPOSITORY GIVEN. PT IS UP WITH 2 ASSIST, MAX, GAIT BELT, WALKER. FALL PRECAUTIONS & HOURLY ROUNDING MAINTAINED THIS SHIFT. PT IS STABLE. LABS & VITALS REVIEWED. IS ABLE TO TURN SELF IN BED, BUT REQUIRES EXTRA TIME. PT IS CURRENTLY SLEEPING. CALL LIGHT WITHIN REACH. BED ALARM ON. WILL CONTINUE TO MONITOR.
--- NOTE | 2019-11-03 06:36 | NUR ---
PT IS BEING TAKING DOWN TO PREOP BY A OR NURSE & TECH. PT HAD BATH BY AID. PT IS AWAKE. CONSENT & CHART SENT WITH NURSE & TECH. PT IS STABLE AT THIS TIME. WILL CONTINUE TO MONITOR.
--- NOTE | 2019-11-03 07:12 | HC ---
[facility] [place] [address] CONSULTATION Name: ROOPA WAY Room #: 510-P [facility] IN M.R.#: [id number] Admission: 10/09/19 Attend Phys: Mason Jason MD Discharge: 11/03/19 Date of : [birth year] Report #: [id number] THIS REPORT FOR: cc: ISAURO - No family physician/PCP FAM - No family physician/PCP Randi Muro MD ~ CC: Mason Jason [facility] physician/PCP REASON FOR CONSULTATION/CHIEF COMPLAINT: Right wrist and hand pain and swelling. HISTORY OF PRESENT ILLNESS: The patient reports sudden onset of right hand and wrist swelling approximately 4 days ago without any specific injury. He denies a prior history of this. Denies a history of gout and reports it is very painful. PAST MEDICAL HISTORY: 1. Significant for recent acute respiratory failure with pneumonia and COVID positive requiring intubation at [facility]. 2. Diabetes mellitus. ALLERGIES: No known drug allergies. SOCIAL HISTORY: Lives alone. He is right hand dominant. He has family around. Denies smoking or drinking alcohol. PAST SURGICAL HISTORY: Unknown. REVIEW OF SYSTEMS: NEUROLOGIC: Denies numbness or tingling. MUSCULOSKELETAL: Denies other extremity complaints. LABORATORY DATA: Laboratory studies done on 10/28/2019, most recently show white blood cell count 8.7, hemoglobin 10, hematocrit is 30.7, platelet count 227. PHYSICAL EXAMINATION: GENERAL: The patient is alert and oriented. He interacts appropriately. He is well-developed, well-nourished male in mild distress due to pain in his hand. He has a normal affect. VITAL SIGNS: Most recent vital signs show temperature of 36.7, heart rate 89, respiratory rate 18, blood pressure 150/89, pulse oximetry is 100% on room air. EXTREMITIES: Examination of his right upper extremity, he has a moderate amount of edema mostly centered at the wrist with some mild erythema distally. There is 2+ radial pulse. This was compared to the left, which shows no edema and the skin is clean, dry and intact on both the right and the left upper extremities. [facility] [address] [place] [address] CONSULTATION Name: ROOPA WAY Room #: 510-P [facility] IN M.R.#: [id number] Admission: 10/09/19 Attend Phys: Mason Jason MD Discharge: 11/03/19 Date of : [birth year] Report #: [id number] Sensation is grossly intact. Grossly normal strength and stability. He is able to move his fingers, although he reports pain at the MP joints and the wrist with his motion. He is unable to move the wrist with some pain. There is diffuse tenderness, appears to be more at the wrist, but he does have tenderness at the MP joints of the index and long fingers. The other joints are not significantly tender. There is no tenderness at the forearm or elbow. Motion is decreased significantly of the hand. There is no erythema. RADIOGRAPHS: AP, lateral and oblique of the right wrist were evaluated and interpreted by myself as well as report was reviewed, which shows some mild diffuse arthritic changes. No significant soft tissue swelling is noted. LABORATORY DATA: Uric acid on 10/27/2019 was 4.2, hemoglobin A1c on 08/21/2019 is 8.8. CRP on 09/13/2019 was 23.4. IMPRESSION AND PLAN: Right wrist and hand edema and significant pain. I discussed that there were 3 likely possibilities, the first is an exacerbation of arthritis in the wrist joint, #2 is gout despite normal serum uric acid level and the third is a septic wrist, which is the least likely. I will order some more recent lab work including a CBC with a manual diff, BMP, ESR and CRP and an MRI of the wrist, which I will ask to be called to me. Today, the patient may require a joint aspiration to evaluate the fluid and joint aspiration. If gout is considered, a bolus of steroid IV may be recommended. Questions were encouraged and answered to the best of my ability. One of my [facility] partners will follow the patient this weekend. <ELECTRONICALLY SIGNED> By: Randi Muro MD 11/03/19 0712 [id number] Randi Muro MD /nt
--- NOTE | 2019-11-03 07:55 | NUR ---
PRIMARY CONTACT, TERESA, HAS BEEN NOTIFIED THAT THE FAMILY TRAINING FOR TODAY HAS BEEN CANCELLED DUE TO THE I&D THAT IS BEING DONE THIS MORNING. TERESA VERBALIZED UNDERSTANDING THAT THE PATIENT HAS BEEN DISCHARGED BACK TO ACUTE, AND THAT CARE IS TRANSFERRED TO THE ACUTE TEAM FOR NOW. TERESA NOTED THAT THEY ARE CONSIDERING SKILLED CARE IF HE NEEDS A LONGER STAY, IF THAT LEVEL OF CARE IS INDICATED. THIS WILL BE NOTED TO THE REHAB TEAM, A POTENTIAL CHANGE TO THE DC PLAN, IF PATIENT NO LONGER NEEDS ACUTE CARE AFTER RECOVERY FROM SURGERY.
== END 2019-11-03 06:51 | disposition short-term general hospital (02) | DRG 91 ==
LOC: PRE → 3W 11:20 → TBACV 10-14 12:56 → 3W 10-14 13:01
PROVIDERS: Hospitalist; Internal Medicine Gastroenterology; Nurse Practitioner; Nurse Practitioner Family; Orthopaedic Surgery Hand Surgery; Radiology Vascular & Interventional Radiology; Specialist; ADMIT Physical Medicine & Rehabilitation; ATTEND Physical Medicine & Rehabilitation
DX: G72.81 Critical illness myopathy (principal); U07.1 COVID-19; J96.01 Acute respiratory failure with hypoxia; A41.9 Sepsis, unspecified organism; R65.20 Severe sepsis without septic shock; J12.89 Other viral pneumonia; E44.0 Moderate protein-calorie malnutrition; N39.0 Urinary tract infection, site not specified; I82.B19 Acute embolism and thrombosis of unspecified subclavian vein; I82.890 Acute embolism and thrombosis of other specified veins; I82.609 Acute embolism and thrombosis of unspecified veins of unspecified upper extremity; F01.50 Vascular dementia, unspecified severity, without behavioral disturbance, psychotic disturbance, mood disturbance, and anxiety; E11.9 Type 2 diabetes mellitus without complications; Z60.2 Problems related to living alone; R53.81 Other malaise; D64.9 Anemia, unspecified; M19.011 Primary osteoarthritis, right shoulder; B37.9 Candidiasis, unspecified; I10 Essential (primary) hypertension
CPT/HCPCS: 10112; 10779

== ENCOUNTER 2019-11-03 06:51 | Inpatient (IN) | payer OTHER ==
[~2019-11-03] VITALS: Ht 162.6 cm; Wt 61.4 kg
[2019-11-03 07:56] VITALS: BP 161/87
[2019-11-03 10:15] VITALS: BP 136/72
--- NOTE | 2019-11-03 13:10 | NUR ---
RD consult received. Pt had extended hospitalization from COVID 19 complications. Recovering and on 5N rehab unit. Required transfer to acute care today for septic arthritis wrist needing I/D. Had been eating well and taking oral supplements. Wt down from initial usual of 155 lb prior to covid dx, and now more stable 135-140 lb. 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 NPO at this time, but will resume pts usual oral supplements of ensure pudding and glucerna shakes. Low nutrition risk
--- NOTE | 2019-11-03 15:53 | NUR ---
ASSESSMENT: CM REVIEWED CHART AND SPOKE WITH ATTENDING. PT WAS ADMITTED FROM ACUTE REHAB WHERE HE WAS FOUND TO HAVE A SEPTIC RIGHT WRIST JOINT THAT NEEDED IRRIGATION AND DEBRIDEMENT. PT IS NOW ON 4S. CM ATTEMPTED TO CONTACT PT IN HIS ROOM BUT NO ANSWER AT THIS TIME. CM REACHED OUT TO PATIENTS CARLOS SANTANA AND ALSO SPOKE WITH PATIENTS FRIEND TERESA. PT IS ORGINALLY FROM HOME ALONE PRIOR TO HIS STAY AT [facility] AND ACUTE REHAB. PT FOUNDED THE [facility] [place] AND HAS ALOT OF [employer] THAT IS INVOLVED IN HIS CARE. PT GOES BY "[facility]".PLANS WERE FOR PATIENT TO RETURN HOME AFTER 5N WITH 24 HOUR CARE BUT SOME CAREGIVERS HAVE FALLEN THROUGH AND THEY ARE THINKING HE WOULD BENEFIT FROM [facility] FAC[facility] PRIOR TO GOING HOME. TERESA REPORTS HE SPOKE WITH PT ABOUT THIS YESTERDAY AND HE IS IN AGREEANCE. TERESA AND CARLOS MARIE REPORT THEY HAVE KNOWN PEOPLE WHO HAVE GONE TO [facility] AND [facility] THAT HAVE REALLY ENJOYED THE FACILITIES. REFERRALS WERE SENT TO BOTH. CM LEFT FOR SOBEIDA AT [facility] TO VERIFY IF THEY ACCEPT PTS INSURANCE [facility]. 5N HAS BEEN CONSULTED BUT THEY ARE STATING IF PLAN IS FOR PATIENT TO GO TO SNF THEN THEY PREFER HE GO STRAIGHT TO SNF [facility]ATHER THEN TO 5N FIRST. CM WILL CONTINUE TO FOLLOW TO ASSIST NEEDED.
[2019-11-03 16:57] VITALS: BP 147/80
--- NOTE | 2019-11-03 17:59 | NUR ---
S.C. CONSULT [id number] WAS COMPLETED BY FEDE JARA.
[2019-11-03 19:30] VITALS: BP 128/61
[2019-11-04 05:41] LABS: HEMATOCRIT 28.5 % (42.0-52.0); HEMOGLOBIN 9.1 gm/dL (14.0-18.0); MCH 27.9 pg (26.0-34.0); MCHC 31.9 g/dL (28.0-37.0); MCV 87.3 fL (80.0-100.0); PLATELET COUNT 208 thou/uL (150-400); RBC 3.26 mil/uL (4.50-6.00); RDW 16.5 % (10.5-14.5); WBC 6.7 thou/uL (4.0-11.0)
[2019-11-04 05:57] LABS: CALCIUM 8.7 mg/dL (8.5-10.1); CREATININE 0.8 mg/dL (0.7-1.3); MAGNESIUM 2.1 mg/dL (1.8-2.4); POTASSIUM 4.4 mmol/L (3.5-5.1)
--- NOTE | 2019-11-04 06:38 | NUR ---
PT AOX4 WITH INTERMITTENT CONFUSION AND FORGETFULNESS. PT REPORTS PAIN IN RIGHT SHOULDER AND RIGHT WRIST. PT RECEIVING PRN PO NORCO Q4HR. PT NOTED TO HAVE INTACT SENSATION TO RUE AND RIGHT HAND, PT OBSERVED WIGGLING FINGERS WITH LESS THAN 3SEC CAPILLARY REFILL. PT TOLERATING PO INTAKE OF FLUIDS AND CARB CONTROLLED DIET. FREQUENT REPOSITIONING ENCOURAGED. PT NOTED TO HAVE INCREASE PAIN TO RUE WITH TACTILE STIMULATION AND MOVEMENT. BODYWORK THERAPIST PROVIDER NOTIFIED, ORDER RECEIVED FOR X1 DOSE OF TORADOL AND ADVISED TO GIVE NORCO AT IF NEEDED. PT RESTING IN BED WITHOUT INTERRUPTION UNTIL UPPER LEATHER CUTTER. PT AWAKENED DUE TO PAIN IN RUE. PT NOT TOLERATING TOUCH TO RUE WITH DIFFICULY MOVING FINGERS. PT NOTED TO TENSE AND HAVE INCREASED ANXIETY. BODYWORK THERAPIST MINE MOTOR ENGINEER NOTIFIED, ADVISED TO NOTIFY SURGEON. SURGEON NOTIFIED VIA ANSWERING SERVICE X2, DR. AMAYA ON UNIT TO ASSESS PT, THERAPY ANTICIPATED TO INCREASE MOBILITY. PT ENCOURAGED TO NOTIFY STAFF FOR ALL NEEDS. CALL LIGHT WITHIN REACH, BED IN LOWEST POSITION, BED ALARM ON. WILL CONTINUE TO MONITOR.
--- NOTE | 2019-11-04 07:38 | NUR ---
ASSUMMED CARE OF PATIENT HE IS RESTING IN BED AKLERT XS 4 PT WAS GIVEN PRN PAIN MED. PT IS PLEASANT AND COOPERATIVE WITH CARE.
[2019-11-04 08:10] VITALS: BP 167/95
[2019-11-04 08:45] LABS: HEMATOCRIT 28.7 % (42.0-52.0); HEMOGLOBIN 9.4 gm/dL (14.0-18.0)
[2019-11-04 09:36] LABS: PLATELET ESTIMATE NORMAL
--- NOTE | 2019-11-04 12:36 | NUR ---
on-going assessment: CM REVIEWED CHART AND ATTEMPTED TO CALL PT IN HIS ROOM BUT NO ANSWER. CM FOLLWED UP WITH [facility] WHO STATES THEY CURRENTLY ARE FULL ON BEDS AND THEY ARE NOT ACCEPTING NEW PATIENTS. CM REACHED OUT TO [facility] WHO STATES THEY ARE UNSURE THEY RECEIVED THE REFERRAL ALTHOUGH CM HAS A CONFIRMATION FAX. REFERRAL WAS RE-SENT TO [facility] AND AWAITING FURTHER INPUT. PT REMAINS ON IV ANBX. CM WILL CONTINUE TO FOLLOW TO ASSIST NEEDED.
[2019-11-04 16:05] VITALS: BP 140/70
[2019-11-04 19:30] VITALS: BP 154/89
[2019-11-04 21:23] LABS: HEMOGLOBIN 9.5 gm/dL (14.0-18.0)
[2019-11-05 08:40] VITALS: BP 137/76
--- NOTE | 2019-11-05 11:54 | NUR ---
ON-GOING ASSESMENT: CM REVIEWED CHART AND SPOKE WITH ATTENDING. PT IS NEARING DISCHARGE GOALS. CM SPOKE WITH BEDSIDE RN TO FOLLOW UP ON COVID TESTING IT IS NOT IN AND HE STATES THEY WILL GET IT TODAY. CM SPOKE WITH DEMARCUS CONTRERAS FROM [facility] WHO REPORTS THEY HAVE ACCEPTED PATIENT BUT SHE WANTS TO COME DO A BEDSIDE EVAL TODAY AT 1130. CM NOTIFIED COVID BARREL CLEANER AND APPROVED IT. DEMARCUS STATES THEY HAVE ALREADY SUBMITTED FOR INSURANCE AUTH AND ARE AWAITING A RESPONSE. THEY ARE ALSO NEEDING A SECOND NEGATIVE COVID TEST CM FAXED THE NEATIVE COVID TEST OF PATIENTS LAST ACUTE ADMISSION PRIOR TO REHAB UNIT. CM NOTIFIED THEM OF LAST NEGATIVE COVID TEST AND ARE AWAITING RESULTS OF THE COVID TEST THAT WAS ORDERED YESTERDAY. CM UPDATED PTS FRIEND TERESA AND ATTEMPTED TO CALL HIS GRANDSON CYNTHIA BUT VM WAS FULL. CM WILL CONTINUE TO FOLLOW TO ASSIST NEEDED.
--- NOTE | 2019-11-05 12:15 | NUR ---
Assumed care of pt at 0700. Pt a&ox4. Dressing on right arm c/d/i. Pain controlled with prn pain meds. PICC line placement ordered by doctor. IV team calls and asks to clarify if PICC line needed due to pt having developed a clot from a previous picc line. Doctor paged and clarified he wanter PICC line placed. Up with assist to bedside commode. Fall precautions in place. Will continue to monitor.
--- NOTE | 2019-11-05 15:16 | O ---
[facility] [place] [address] OPERATIVE REPORT Name: ROOPA WAY Room #: 435-P [facility] IN M.R.#: [id number] Admission: 11/03/19 Attend Phys: Randi Muro, Discharge: Date of : [birth year] Report #: [id number] THIS REPORT FOR: cc: ISAURO - Radha family physician/PCP ISAURO - Radha family physician/PCP Randi Muro MD ~ CC: ISAURO physician/PCP Randi Muro DATE OF SERVICE: 11/03/2019 PREOPERATIVE DIAGNOSIS: Right septic wrist. POSTOPERATIVE DIAGNOSIS: Right septic wrist. PROCEDURE PERFORMED: Right wrist arthroscopic irrigation and debridement. SURGEON: Randi Muro MD ANESTHESIA: General mask anesthesia. ESTIMATED BLOOD LOSS: 1 mL. TOURNIQUET TIME: 30 minutes. COMPLICATIONS: None. CONDITION: Stable. DISPOSITION: Recovery room. INDICATIONS: The patient is an 89-year-old male with right wrist pain and swelling that has increasingly worsened over the last few days. Cultures grew out Staph aureus and he presents for surgical treatment. The risks, benefits, alternatives and complications were discussed including but not limited to, inability to completely resolve the infection, stiffness, infection, damage to vessels or nerves, worsening of any symptoms. Informed consent was obtained. The correct extremity was identified and labeled by myself after verbal confirmation of the patient as well as visual confirmation and signed informed consent. DESCRIPTION OF PROCEDURE: The patient was brought back to the operating room and placed in a supine position. He received preoperative antibiotics. Tourniquet was placed over padding on the patient's right upper extremity. The right upper extremity was sterilely prepped and draped in the usual fashion. Final timeout was taken to verify correct patient, operative procedure, and [address] [address] OPERATIVE REPORT Name: ROOPA WAY Room #: 435-P [facility] IN M.R.#: [id number] Admission: 11/03/19 Attend Phys: Randi Muro, Discharge: Date of : [birth year] Report #: [id number] operative site, all concurred. The patient's fingers were placed into finger trap traction taking care to pad bony prominences and neurovascular structures. The traction was maintained at approximately 5-10 pounds. The arm was exsanguinated proximal to the wrist and the tourniquet inflated. Next, a 3-4 portal was localized with a needle. The skin only was incised. Dissection was carried down bluntly with hemostat. Blunt trocar and cannula was inserted. Normal-appearing joint fluid was encountered. There was some moderate amount of synovitis. The 4-5 portal was localized with a needle. Skin only was incised. Dissection was carried down with blunt hemostat. Blunt trocar was inserted. The 2.0 mm shaver was inserted and a dorsal synovectomy was performed. The 6R portal was localized with a needle. Skin only was incised. Dissection was carried down with blunt hemostat. Blunt trocar was inserted and then the shaver was inserted. The patient had a complex TFCC tear, also lunotriquetral fraying and chondromalacia of the ulnar side of the lunate consistent with ulnocarpal impaction syndrome. Also on page 1 noted a loose body volarly. This was removed completely with a grasper. Next, the remainder of the radiocarpal joint was debrided with the shaver and then 1 liter of antibiotic saline was irrigated through the joint. Of note, the scapholunate ligament appeared to have a stage 3 tear. Next, attention was placed to the midcarpal joint. The radial midcarpal portal was localized with a needle. Skin only was incised. Dissection was carried down with blunt hemostat. Blunt trocar and cannula were inserted. The camera was then inserted. The cartilage looked actually to be in excellent condition. There was some mild fraying in the proximal portion of the capitate. The ulnar midcarpal portal was localized in the same fashion and a shaver was inserted. Some mild dorsal midcarpal synovitis was debrided and then approximately 300 mL of antibiotic saline was irrigated through the midcarpal space. The instrumentation was then removed. The patient was taken out of traction. The wounds were closed. A deep drain was attempted to be placed, but was unable to be placed due to the fairly superficial nature of the wrist joint. The wounds were closed with 4-0 nylon suture. The subcutaneous tissue was infiltrated with approximately 10 mL of 0.25% Marcaine. He was placed in a bulky dressing and a volar slab splint. All fingers were pink with brisk capillary refill at the conclusion of the case after deflation of tourniquet and after application of the dressing, all sponge and needle counts were correct. The patient was transferred to postoperative recovery room in stable condition. <ELECTRONICALLY SIGNED> By: Rnadi Muro MD 11/05/19 1516 [id number] Randi Muro MD /nt
--- NOTE | 2019-11-05 15:37 | NUR ---
CONSULTED TO PLACE A PICC FOR A PATIENT DISCHARGING ON IV ANTIBIOTICS. ORDER AND CONSENT NOTED. BLOOD SPLATTER ANALYST AND I BOTH DISCUSSED PLACEMENT WITH DR. COREA THIS PATIENT HAS A HX OF RECENT DVT. HE CONFIRMED HE HAS TO HAVE PICC PLACEMENT. DISCUSSED RISKS OF DVT VS BENIFITS WITH THE PATIENT AND HE CONSENTED TO PLACEMENT. HE IS ON ELIQUIS AT THIS TIME. THE LEFT UPPER ARM BASILIC WAS WIDLEY PATENT. AFTER CONSENT OBTAINED A #4F SINGLE LUMEN POWER PICC WAS PLACED PER HOSPITAL POLICY. LINE WAS TRIMMED TO 50CM AND ADVANCED WITHOUT DIFFICULTY. A STAT CHEST XRAY CONFIRMED LINE IN SVC. LINE NOTED TO BE BLEEDING POST PROCEDURE DUE TO BLOOD THINNER- DRESSING CHANGED AND PRESSURE DRESSING APPLIED. PATIENT REASURRED AND COBAN APPLIED. LINE IS RELEASED FOR USE
[2019-11-05 18:29] VITALS: BP 131/71
[2019-11-05 19:05] VITALS: BP 144/78
--- NOTE | 2019-11-06 01:01 | NUR ---
ASSESSED AT START OF SHIFT 1900 PT A&OX4 ON ASSESSMENT BRIGHT RED BLOODY DRAINAGE NOTED ON PICC SITE. PER REPORT IV TEAM AWARE AND DRESSING CHANGED X2. MODERATE AMOUNT OF BLEEDING NOTED. THIS NURSE APPLIED FIRM PRESSURE ON PICC FOR 2HRS WITH HELP FROM OTHER NURSE. CALLED HOUSE SUP AND NOTIFIED. NEW DRESSING IN PLACE AND WRAPPED IN RIKI BANDAGE. NEW DRESSING C/D/I WILL CONT TO MONITOR. EVENING MEDS AND PAIN MED GIVEN FOR RIGHT WRIST PAIN. SCD'S INTACT AND FALL PREC IN PLACE WILL CONT WITH POC TILL EOS.
[2019-11-06 06:14] VITALS: BP 144/82
[2019-11-06 07:20] VITALS: BP 148/86
[2019-11-06] MEDS ORDERED: MELATONIN5 M1 PO (07:43)
[2019-11-06] MEDS ORDERED: COLACE 100 MG100 MG PO (07:43)
[2019-11-06] MEDS ORDERED: ACIDOPHILUS1 EAC4 PO (07:43)
[2019-11-06] MEDS ORDERED: VOLTAREN GEL 1100 G1 TOP (07:43)
[2019-11-06] MEDS ORDERED: HYDROCODON-ACE1 EAC7 PO (07:43)
[2019-11-06] MEDS ORDERED: FLOMAX0.4 MG PO (07:43)
[2019-11-06] MEDS ORDERED: TRAZODONE HCL50 MG PO (07:43)
[2019-11-06 09:41] VITALS: BP 148/96
--- NOTE | 2019-11-06 10:44 | NUR ---
ON-GOING ASSESSMENT: RAUL REVIEWED CHART AND SPOKE WITH LIASON AT [facility]. THEY STATE THEY HAVE INSURANCE AUTH AND CAN ACCEPT PATIENT TODAY. RAUL SPOKE WITH [facility]IEL IN ADMISSIONS WHO REPORTS THEY CAN ACCEPT PATIENT AND HAVE TRANSPORTATION HERE AT 2PM. CM NOTIFIED BEDSIDE RN WELL WITH THE NUMBER FOR REPORT. CM ALSO NOTIFIED PT AND HIS GRANDSON CYNTHIA AND FRIEND TERESA. CM FAXED DISCHARGE ORDERS TO FACILITY AND CONFIRMED THEY RECEIVED THEM. CHART COPY WAS ORDERED AND DIRECTOR OF CLINICAL EDUCATION NOTIFIED. PT REPORTS NO FURTHER NEEDS FROM RAUL AT THIS TIME. CM ALSO FAXED RESULTS OF NEGATIVE COVID TEST TO FACILITY.
--- NOTE | 2019-11-06 17:09 | NUR ---
VSS-AFEBRILE. SHOWER AND SHAVE, AND DRESSED FOR DISCHARGE. CALLED REPORT TO [facility]. IV REMOVED, SINGLE LUMEN PICC LINE LEFT IN PLACE FOR OPERATIONS MANAGER ASSISTANT ANTIBIOTIC THERAPY. TAKEN OUT IN WHEELCHAIR TO FACILITY TRANSPORTATION VEHICLE. ALL PERSONAL BELONGINGS SENT WITH PATIENT.
== END 2019-11-06 14:49 | DRG 548 ==
LOC: 4S 06:51 → TBA 06:51 → 4S 09:36
PROVIDERS: Hospitalist; Nurse Practitioner; ADMIT Orthopaedic Surgery Hand Surgery; ATTEND Orthopaedic Surgery Hand Surgery
PROC: 0JDG3ZZ Extraction of Right Lower Arm Subcutaneous Tissue and Fascia, Percutaneous Approach (ICD-10-PCS; 2019-11-03)
PROC: 02HV33Z Insertion of Infusion Device into Superior Vena Cava, Percutaneous Approach (ICD-10-PCS; principal; 2019-11-05)
DX: M00.031 Staphylococcal arthritis, right wrist (principal); J96.90 Respiratory failure, unspecified, unspecified whether with hypoxia or hypercapnia; K92.1 Melena; G72.81 Critical illness myopathy; E44.0 Moderate protein-calorie malnutrition; E27.40 Unspecified adrenocortical insufficiency; N39.0 Urinary tract infection, site not specified; B37.89 Other sites of candidiasis; D69.6 Thrombocytopenia, unspecified; E11.9 Type 2 diabetes mellitus without complications; N40.0 Benign prostatic hyperplasia without lower urinary tract symptoms; B95.61 Methicillin susceptible Staphylococcus aureus infection as the cause of diseases classified elsewhere; J44.9 Chronic obstructive pulmonary disease, unspecified; E78.5 Hyperlipidemia, unspecified; K59.00 Constipation, unspecified; G47.00 Insomnia, unspecified; E83.42 Hypomagnesemia; E87.6 Hypokalemia; Z20.828 Contact with and (suspected) exposure to other viral communicable diseases; Z85.46 Personal history of malignant neoplasm of prostate; Z79.899 Other long term (current) drug therapy; Z68.23 Body mass index [BMI] 23.0-23.9, adult
CPT/HCPCS: 10102; 27000; 50010; 50101; 50386; 51462; 54170; 56526; 57091; 62110; 62900; 70005